=== PATIENT | female | born 1945 | race Caucasian/White ===

== ENCOUNTER 2020-10-31 15:19 | Inpatient (IN) ==
[2020-10-31 15:57] LABS: INR 1.1 (0.9-1.1); Partial Thromboplastin Ratio 0.8; Partial Thromboplastin Time 20.4 Seconds (21.0-31.0); Prothrombin Time 10.9 Seconds (9.0-12.0)
[2020-10-31 16:01] LABS: BUN Creatinine Ratio 19.9 (10-20); Blood Urea Nitrogen 25 mg/dl (7-18); Calcium 8.6 mg/dl (8.5-10.1); Carbon Dioxide 28 mmol/L (21-32); Chloride 107 mmol/L (98-107); Creatinine Clr Calc Pharmacy 48.2 ml/min; Est GFR (African American) 48.5 ml/min; Est GFR (Non-African American) 41.8 ml/min; Glucose 178 mg/dl (70-99); Lipase 214 U/L (73-393); Sodium 141 mmol/L (136-145)
[2020-10-31 16:06] LABS: NT Pro B Type Natriuretic Pept 627 pg/ml (0-900); Troponin I < 0.015 ng/ml (0-0.045)
[2020-10-31 16:08] LABS: Base Excess VBG 3.5 mEq/L; pH VBG 7.41 (7.36-7.41)
[2020-10-31 16:18] LABS: Hematocrit (blood only) 20.6 % (37-47); Hemoglobin 5.6 g/dL (12.0-16.0); Mean Corpuscular Hemoglobin 20.8 pg (25-34); Mean Corpuscular Hgb Conc 27.2 g/dL (32-36); Mean Corpuscular Volume 76.6 fL (80-100); Mean Platelet Volume 11.5 fL (7.4-10.4); Nucleated RBC # (auto) 0.05 K/uL (0-0); Nucleated RBC % (auto) 0.7 %; Platelet Count 186 K/uL (130-400); RDW Coefficient of Variation 18.7 % (11.5-14.5); RDW Standard Deviation 52.3 fL (36.4-46.3); Red Blood Count 2.69 M/uL (4.2-5.4); White Blood Count 6.46 K/uL (4.8-10.8)
[2020-10-31 16:19] LABS: Basophils # (auto) 0.02 K/uL (0-0.2); Basophils % (auto) 0.3 %; Eosinophils # (auto) 0.04 K/uL (0-0.5); Eosinophils % (auto) 0.6 %; Hypochromasia Present; Immature Granulocytes # (auto) 0.02 K/uL (0.00-0.02); Immature Granulocytes % (auto) 0.3 %; Lymphocytes # (auto) 1.23 K/uL (1.2-3.4); Monocytes # (auto) 0.52 K/uL (0.11-0.59); Neutrophils # (auto) 4.63 K/uL (1.4-6.5); Neutrophils % (auto) 71.8 %; Ovalocytes 1+; Schistocytes 1+
[2020-10-31] MEDS ORDERED: SODIUM CHLORIDE 0.9% 250 ML IV PRN ×2 (16:19→22:05)
[2020-10-31] MEDS ORDERED: PANTOPRAZOLE BOLUS/DRIP 1 EA IV STA (16:25)
[2020-10-31] MEDS ORDERED: PANTOprazole 80 MG in DEXTROSE 5% 100 ML IV ONE (16:25)
--- NOTE | 2020-10-31 16:30 | XRay Report ---
XR chest 1V portable HISTORY: 75 years-old Female Chest Pain . Acute atypical chest pain COMPARISON: None TECHNIQUE: Portable AP view of the chest FINDINGS: Cardiac silhouette is enlarged. Suggested pulmonary artery hypertension. Linear subsegmental left solomon g base atelectasis/scarring. No pneumothorax, pleural effusion, airspace consolidation or overt pulmo nary edema. Possible hiatal hernia. Bones appear grossly intact. IMPRESSION: Cardiomegaly without acute process. ACT 112: Negative or not required by law. The above report was generated using voice recognition software. It may contain grammatical, syntax o r spelling errors. Electronically signed by: Conor Nichols M.D. 10/31/2020 4:29 PM
[2020-10-31] MEDS: PANTOprazole 40 MG in DEXTROSE 5% 100 ML IV SCH ×2 (17:07→21:51)
--- NOTE | 2020-10-31 17:20 | History & Physical Report ---
Date of Service October 31, 2020 Assessment & Plan (1) Acute blood loss anemia: Cute blood loss anemia from a GI source encouraged by circulating anticoagulant of Eliquis. Holding Eliquis and aspirin. Transfuse 2 units packed red blood cells in the emergency department. Protonix drip was initiated will be continued. Consideration of consultation with gastroenterology will be based upon augmentation of her hemoglobin by transfusion. (2) Atrial fibrillation: Continue rate controlling agent of metoprolol with small sip of water (3) COPD (chronic obstructive pulmonary disease): Continue on pharmacy substituted for Trelegy inhaler (4) Depression: The patient is maintained on Paxil 20 Ativan 0.5 at bedtime (5) Hyperlipidemia: Patient continues on atorvastatin 40 (6) CKD (chronic kidney disease): Patient likely has some chronic kidney disease based upon her comorbid state however we do not have her baseline here. Likely may have some MEE however the patient be hydrated in addition to the blood being administered (7) DVT prophylaxis: MARHSALL prophylaxis is contraindicated we will proceed with SCDs. History of Present Illness Primary Care Provider: Hermelinda Penn MD Patient recently discharged from [facility] with diagnosis of A. fib restarted on Eliquis and metoprolol having come off of verapamil. Patient presents with blood loss anemia with a hemoglobin of 5.6 and melena with heme positive stool from below according to the emergency room physician. Her blood pressure stable in the ER she is slightly tachypneic but does have a history of COPD. Patient was only discharged on a baby aspirin on Eliquis which seemed to be appropriate dosing. Patient is consented for to inspect her blood cells in the emergency department she is on diuretics however echocardiogram from September 22 shows an EF to be 70 subsequently the diuretics may be for cor pulmonale or peripheral edema from her COPD. Allergies Allergy/AdvReac Type Severity Reaction Status Date / Time No Known Allergies Allergy Verified 10/31/20 15:51 Home Medications Medication Instructions Recorded Confirmed Type ascorbic acid (vitamin C) [Vitamin 500 mg PO QAM 03/02/18 10/31/20 History C] atorvastatin 40 mg PO QAM 03/02/18 10/31/20 History lorazepam [Ativan] 0.5 mg PO HS 03/02/18 10/31/20 History omega 9-jte-qlv-fish oil [Fish Oil] 1 tab PO QAM 03/02/18 10/31/20 History paroxetine HCl 20 mg PO QAM 03/02/18 10/31/20 History potassium chloride [Klor-Con M20] 20 meq PO QAM 03/02/18 10/31/20 History vitamin E 400 unit PO QAM 03/02/18 10/31/20 History cholecalciferol (vitamin D3) 1,000 unit PO QAM 11/26/18 10/31/20 History [Vitamin D3] apixaban [Eliquis] 5 mg PO BID 10/31/20 10/31/20 History aspirin 81 mg PO QAM 10/31/20 10/31/20 History nbojfnemjil-eavrcvekr-hbfnrjes 1 inh INHALATION BID 10/31/20 10/31/20 History [Trelegy Ellipta] furosemide 40 mg PO QAM 10/31/20 10/31/20 History metoprolol tartrate 25 mg PO BID 10/31/20 10/31/20 History spironolactone 25 mg PO QAM 10/31/20 10/31/20 History Past Med/Surg History Medical History (Updated 10/31/20 @ 17:25 by Piotr Glover MD) Anxiety Bulging disc 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 Chronic obstructive pulmonary disease COPD (chronic obstructive pulmonary disease) Depression Edema of both legs x 3 weeks - pcp aware - recently started on lasix GERD (gastroesophageal reflux disease) Hearing deficit Hyperlipidemia Hypertension Osteoarthritis Surgical History History of cholecystectomy History of colonoscopy History of surgery Rt eye keratectomy History of tonsillectomy and adenoidectomy History of tooth extraction ALL ON TOP, MOST ON BOTTOM History of total abdominal hysterectomy and bilateral salpingo-oophorectomy Social History Smoking Status: Former smoker Tobacco Type: Cigarettes Cigarettes Per Day: 1-2 A DAY FOR 50 YRS; Second Hand Exposure: Yes (1ST SMOKED); Hx Alcohol Use: No Hx Substance Use: No Preferred Language: Ukrainian 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: 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 Beliefs That Will Affect Care: Jehovah'S Witness Jehovah'S Witness Beliefs: [employer] Current Living Situation: Spouse Feels Safe at Home: Yes Assistive Devices: Denture - Upper, Glasses and Hearing Aid - Bilateral Review of Systems Review of Systems: Mild distress and fatigue no headache, blurry or double vision no speech or swallowing issues no chest pain, pressure or palpitations no shortness of breath, cough or wheezes no abdominal pain, nausea or vomiting, diarrhea or constipation no dysuria, hematuria or frequency no focal joint pain or swelling no back pain, CVA tenderness or radicular pain no bruising, bleeding or rashes no focal signs of weakness or numbness or altered sensation no complaints of anxiety or depression.. Physical Exam Physical Exam: The patient appeared well nourished and normally developed. Vital signs as documented. Head exam is normocephalic atraumatic Neck is without JVD, thyromegaly, or carotid bruits. Lungs are clear to auscultation, no focal loss of breath sounds Cardiac exam, Rhythm is regular.. No murmurs, rubs or gallops. Abdominal exam reveals normal bowel sounds, soft non tender, no masses Extremities are nonedematous and both pedal pulses are present Neurologic exam is alert and oriented, no focal loss of strength or sensation Skin is without bruises or rashes Psychologically is without concerns for anxiety or depression Results & Data Results & Data ([facility]) Vital Signs (Past 12 Hours) Vital Signs Temp Pulse Resp BP Pulse Ox 10/31/20 17:01 67 26 H 132/64 92 10/31/20 17:00 72 22 90 10/31/20 16:36 66 24 172/97 H 96 10/31/20 16:35 69 22 96 10/31/20 16:01 67 29 H 94 10/31/20 16:00 72 17 124/70 94 10/31/20 15:52 66 25 H 130/58 L 92 10/31/20 15:44 95 10/31/20 15:40 95 10/31/20 15:33 98.2 F 90 20 95 10/31/20 15:30 73 19 95 10/31/20 15:23 71 24 148/64 H 94 Chest X-Ray 10/31/20 15:38 XR chest 1V portable HISTORY: 75 years-old Female Chest Pain . Acute atypical chest pain COMPARISON: None TECHNIQUE: Portable AP view of the chest FINDINGS: Cardiac silhouette is enlarged. Suggested pulmonary artery hypertension. Linear subsegmental left lung base atelectasis/scarring. No pneumothorax, pleural effusion, airspace consolidation or overt pulmonary edema. Possible hiatal hernia. Bones appear grossly intact. IMPRESSION: Cardiomegaly without acute process. Electronically signed by: Conor Nichols M.D. 10/31/2020 4:29 PM PG Care Time/CCT Total # of Minutes Spent Total Time Spent with Patient: Total time spent is greater than 50% in coordination of care (as documented) at patient's floor/unit and/or counseling patient: Coding Level of Care Code 56248 Initial Inpt Care Lvl 3 Diagnoses Acute blood loss anemia D62 Atrial fibrillation I48.91 COPD (chronic obstructive pulmonary disease) J44.9 Depression F32.9 Hyperlipidemia E78.5 CKD (chronic kidney disease) N18.9 DVT prophylaxis Z29.9
--- NOTE | 2020-10-31 19:47 | Emergency Department Note ---
History of Present Illness General Chief complaint: Shortness of Breath/Dyspnea Time Seen by Provider: 10/31/20 15:24 History of Present Illness Provider complaint: Shortness of breath palpitations Onset (ago): day(s) 2 Maximum Pain Intensity: 5 Associated symptoms: + shortness of breath; no chest pain, no cough, no fever/chills, no headaches and no nausea/vomiting 75-year-old female presents emergency department with palpitations shortness of breath and fatigue. Patient states she thinks she is in A. fib. She reports her symptoms began since yesterday. Patient denies any chest pain. Patient is on Eliquis for atrial fibrillation. Patient is not vaccinated against COVID-19. No recent travel. Home Medications Medication Instructions Recorded Confirmed Type ascorbic acid (vitamin C) [Vitamin 500 mg PO QAM 03/02/18 10/31/20 History C] atorvastatin 40 mg PO QAM 03/02/18 10/31/20 History lorazepam [Ativan] 0.5 mg PO HS 03/02/18 10/31/20 History omega 8-szz-wax-fish oil [Fish Oil] 1 tab PO QAM 03/02/18 10/31/20 History paroxetine HCl 20 mg PO QAM 03/02/18 10/31/20 History potassium chloride [Klor-Con M20] 20 meq PO QAM 03/02/18 10/31/20 History vitamin E 400 unit PO QAM 03/02/18 10/31/20 History cholecalciferol (vitamin D3) 1,000 unit PO QAM 11/26/18 10/31/20 History [Vitamin D3] apixaban [Eliquis] 5 mg PO BID 10/31/20 10/31/20 History aspirin 81 mg PO QAM 10/31/20 10/31/20 History miwhwvhzqch-qwtqjrclj-nyftfabq 1 inh INHALATION BID 10/31/20 10/31/20 History [Trelegy Ellipta] furosemide 40 mg PO QAM 10/31/20 10/31/20 History metoprolol tartrate 25 mg PO BID 10/31/20 10/31/20 History spironolactone 25 mg PO QAM 10/31/20 10/31/20 History Allergies Allergy/AdvReac Type Severity Reaction Status Date / Time No Known Allergies Allergy Verified 10/31/20 15:51 Past Med/Surg History Medical History Anxiety Bulging disc 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 Chronic obstructive pulmonary disease COPD (chronic obstructive pulmonary disease) Depression Edema of both legs x 3 weeks - pcp aware - recently started on lasix GERD (gastroesophageal reflux disease) Hearing deficit Hyperlipidemia Hypertension Osteoarthritis Surgical History History of cholecystectomy History of colonoscopy History of surgery Rt eye keratectomy History of tonsillectomy and adenoidectomy History of tooth extraction ALL ON TOP, MOST ON BOTTOM History of total abdominal hysterectomy and bilateral salpingo-oophorectomy Social History Smoking Status: Former smoker Tobacco Type: Cigarettes Cigarettes Per Day: 1-2 A DAY FOR 50 YRS; Second Hand Exposure: Yes (1ST SMOKED); Hx Alcohol Use: No Hx Substance Use: No Preferred Language: Macedonian 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: Effective Escrow Agent Required: No Beliefs That Will Affect Care: Advent Advent Beliefs: [place] GNOSTICISM Current Living Situation: Spouse Feels Safe at Home: Yes Assistive Devices: Denture - Upper, Glasses and Hearing Aid - Bilateral Review of Systems A total of 10 systems reviewed and were otherwise negative Physical Exam Vital Signs Vital Signs - 24 hr 10/31/20 15:23 10/31/20 15:28 10/31/20 15:30 Temperature Temperature Source Pulse Rate 71 73 Pulse Rate from SpO2 Sensor 72 72 Pulse Rhythm Pulse Strength Respiratory Rate 24 19 Respiratory Depth Respiratory Pattern Regular Blood Pressure 148/64 H Blood Pressure Mean 92 Blood Pressure Position Pulse Oximetry 94 95 Oxygen Delivery Method Sepsis Recent Fever Within 48 Hours Sepsis New/Unexplained Change in Mental Status Sepsis Action Taken by Nursing 10/31/20 15:33 10/31/20 15:40 10/31/20 15:44 Temperature 36.8 C Temperature Source Oral Pulse Rate 90 Pulse Rate from SpO2 Sensor Pulse Rhythm Regular Pulse Strength Normal Respiratory Rate 20 Respiratory Depth Normal Respiratory Pattern Regular Blood Pressure Blood Pressure Mean Blood Pressure Position Sitting Pulse Oximetry 95 95 95 Oxygen Delivery Method Room Air Room Air Room Air Sepsis Recent Fever Within 48 Hours No Sepsis New/Unexplained Change in Mental Status N/A Sepsis Action Taken by Nursing No Action Required 10/31/20 15:52 10/31/20 16:00 10/31/20 16:01 Temperature Temperature Source Pulse Rate 66 72 67 Pulse Rate from SpO2 Sensor 66 72 67 Pulse Rhythm Pulse Strength Respiratory Rate 25 H 17 29 H Respiratory Depth Respiratory Pattern Blood Pressure 130/58 L 124/70 Blood Pressure Mean 82 88 Blood Pressure Position Pulse Oximetry 92 94 94 Oxygen Delivery Method Sepsis Recent Fever Within 48 Hours Sepsis New/Unexplained Change in Mental Status Sepsis Action Taken by Nursing 10/31/20 16:35 10/31/20 16:36 10/31/20 17:00 Temperature Temperature Source Pulse Rate 69 66 72 Pulse Rate from SpO2 Sensor 69 67 73 Pulse Rhythm Pulse Strength Respiratory Rate 22 24 22 Respiratory Depth Respiratory Pattern Blood Pressure 172/97 H Blood Pressure Mean 122 Blood Pressure Position Pulse Oximetry 96 96 90 Oxygen Delivery Method Sepsis Recent Fever Within 48 Hours Sepsis New/Unexplained Change in Mental Status Sepsis Action Taken by Nursing 10/31/20 17:01 10/31/20 17:02 Temperature Temperature Source Pulse Rate 67 63 Pulse Rate from SpO2 Sensor 67 64 Pulse Rhythm Pulse Strength Respiratory Rate 26 H 24 Respiratory Depth Respiratory Pattern Blood Pressure 132/64 Blood Pressure Mean 86 Blood Pressure Position Pulse Oximetry 92 93 Oxygen Delivery Method Sepsis Recent Fever Within 48 Hours Sepsis New/Unexplained Change in Mental Status Sepsis Action Taken by Nursing Physical Exam GENERAL: She is oriented to person, place, and time. She appears well-developed and well-nourished. She does not appear distressed. HENT: Exam performed. -Head: Normocephalic and atraumatic. -Right Ear: External ear normal. No mastoid tenderness. -Left Ear: External ear normal. No mastoid tenderness. -Mouth/Throat: The oropharynx is clear and moist. No trismus in the jaw. No dental abscesses or uvula swelling. No oropharyngeal exudate or tonsillar abscesses. EYES: Conjunctivae and EOM are normal. Pupils are equal, round, and reactive to light. Right eye exhibits no discharge. Left eye exhibits no discharge. No scleral icterus. NECK: Normal range of motion. Neck supple. No JVD present. No spinous process tenderness present. No carotid bruit present. No rigidity. No tracheal deviation and normal range of motion present. No Brudzinski's sign and no Kernig's sign noted. CV: Normal rate, regular rhythm, normal heart sounds and intact distal pulses. There is no peripheral edema. Palpable radial pulses bue. PULM/CHEST: Effort normal and breath sounds normal. No respiratory distress. No stridor. She has no wheezes. She has no rales. -Chest Wall: She exhibits no tenderness. ABD: The abdomen is soft. Bowel sounds are normal. She has no distension. No mass is present. There is no tenderness. There is no rebound, no guarding, no Bryant's sign and no tenderness at McBurney's point. Rovsig negative MUSC/SKEL: Normal range of motion. There is no peripheral edema, tenderness or deformity. LYMPH: No cervical adenopathy. NEURO: She is alert and oriented to person, place, and time. She has normal strength. No cranial nerve deficit or sensory deficit. Coordination and gait normal. GCS eye subscore is 4. GCS verbal subscore is 5. GCS motor subscore is 6. Cerebellar tests wnl. SKIN: Pale Course Course 1524: The patient was evaluated in room B11. A complete history and physical exam was performed Cardiac monitoring: An order was placed for continuous cardiac monitoring. The monitor shows a rate of 80 with sinus rhythm 1630: Vital signs stable. Labs show a hemoglobin of 5.6. Rectal exam was performed with female nursing gift consultant at bedside and the patient was Hemoccult positive with black tarry stools. Patient was started on Protonix drip and will be transfused 2 units packed red blood cells. Patient will be admitted to the [facility] team Dr. Canales notified. Administered Medications Pantoprazole Sodium 40 mg/ (Dextrose) 100 mls @ 20 mls/hr IV Q5H [facility] Stop: 11/30/20 16:42 Last Admin: 10/31/20 17:07 Dose: 8 mg/hr, 20 mls/hr Documented by: [id number] Discontinued Medications Pantoprazole Sodium (Protonix Bolus/Drip) 0 mls @ 1 mls/hr IV ONE STA Stop: 10/31/20 16:26 Last Admin: 10/31/20 18:57 Dose: Not Given Documented by: [id number] Pantoprazole Sodium 80 mg/ (Dextrose) 120 mls @ 400 mls/hr IV NOW ONE Stop: 10/31/20 16:42 Last Infusion: 10/31/20 17:11 Dose: 0 mls/hr Documented by: [id number] Admin: 10/31/20 16:56 Dose: 400 mls/hr Documented by: [id number] Critical Care Time Critical Care Time: Yes Total Critical Care Time: 66 I have personally spent greater than 66 minutes of critical care time in the direct management of this patient. This includes bedside care, interpretation of diagnostic studies, and testing, discussion with consultants, patient, and family members, and other required patient management activities. This 66 minutes is in excess of all separately billable procedures. Medical Decision Making Laboratory Data Result diagrams: 10/31/20 15:30 10/31/20 15:30 Lab Results 10/31/20 10/31/20 10/31/20 Range/Units 15:30 15:30 15:30 WBC 6.46 (4.8-10.8) K/uL RBC 2.69 L (4.2-5.4) M/uL Hgb 5.6 L* (12.0-16.0) g/dL Hct 20.6 L* (37-47) % MCV 76.6 L (80-100) fL MCH 20.8 L (25-34) pg MCHC 27.2 L (32-36) g/dL RDW Std Deviation 52.3 H (36.4-46.3) fL RDW Coeff of Giana 18.7 H (11.5-14.5) % Plt Count 186 (130-400) K/uL MPV 11.5 H (7.4-10.4) fL Immature Gran % (Auto) 0.3 % Neut % (Auto) 71.8 % Lymph % (Auto) 19.0 % [place] % (Auto) 8.0 % Eos % (Auto) 0.6 % Baso % (Auto) 0.3 % Neut # (Auto) 4.63 (1.4-6.5) K/uL Lymph # (Auto) 1.23 (1.2-3.4) K/uL [place] # (Auto) 0.52 (0.11-0.59) K/uL Eos # (Auto) 0.04 (0-0.5) K/uL Baso # (Auto) 0.02 (0-0.2) K/uL Immature Gran # (Auto) 0.02 (0.00-0.02) K/uL Absolute Nucleated RBC 0.05 H (0-0) K/uL Nucleated RBC % (auto) 0.7 % Hypochromasia Present Ovalocytes 1+ Schistocytes 1+ PT 10.9 (9.0-12.0) Seconds INR 1.1 (0.9-1.1) APTT 20.4 L (21.0-31.0) Seconds PTT Ratio 0.8 VBG pH (7.36-7.41) VBG pCO2 (38-50) mmHg VBG pO2 mmHg VBG HCO3 mmol/L VBG O2 Saturation % VBG Base Excess mEq/L Barometric Pressure mm/Hg Sodium 141 (136-145) mmol/L Potassium 4.0 (3.5-5.1) mmol/L Chloride 107 (98-107) mmol/L Carbon Dioxide 28 (21-32) mmol/L Anion Gap 6.0 (3-11) BUN 25 H (7-18) mg/dl Creatinine 1.27 H (0.6-1.2) mg/dl Est Cr Clr Drug Dosing 48.2 ml/min Est GFR ( Amer) 48.5 ml/min Est GFR (Non-Af Amer) 41.8 ml/min BUN/Creatinine Ratio 19.9 (10-20) Glucose 178 H (70-99) mg/dl Calcium 8.6 (8.5-10.1) mg/dl Troponin I < 0.015 (0-0.045) ng/ml NT-Pro-B Natriuret Pep 627 (0-900) pg/ml Lipase 214 (73-393) U/L COVID-19 Eval Order SARS-CoV-2 (PCR) (Negative) Blood Type Blood Type Recheck Antibody Screen Crossmatch 10/31/20 10/31/20 10/31/20 Range/Units 15:50 15:50 15:58 WBC (4.8-10.8) K/uL RBC (4.2-5.4) M/uL Hgb (12.0-16.0) g/dL Hct (37-47) % MCV (80-100) fL MCH (25-34) pg MCHC (32-36) g/dL RDW Std Deviation (36.4-46.3) fL RDW Coeff of Giana (11.5-14.5) % Plt Count (130-400) K/uL MPV (7.4-10.4) fL Immature Gran % (Auto) % Neut % (Auto) % Lymph % (Auto) % [place] % (Auto) % Eos % (Auto) % Baso % (Auto) % Neut # (Auto) (1.4-6.5) K/uL Lymph # (Auto) (1.2-3.4) K/uL [place] # (Auto) (0.11-0.59) K/uL Eos # (Auto) (0-0.5) K/uL Baso # (Auto) (0-0.2) K/uL Immature Gran # (Auto) (0.00-0.02) K/uL Absolute Nucleated RBC (0-0) K/uL Nucleated RBC % (auto) % Hypochromasia Ovalocytes Schistocytes PT (9.0-12.0) Seconds INR (0.9-1.1) APTT (21.0-31.0) Seconds PTT Ratio VBG pH 7.41 (7.36-7.41) VBG pCO2 47 (38-50) mmHg VBG pO2 40 mmHg VBG HCO3 29 mmol/L VBG O2 Saturation 75.0 % VBG Base Excess 3.5 mEq/L Barometric Pressure 737.1 mm/Hg Sodium (136-145) mmol/L Potassium (3.5-5.1) mmol/L Chloride (98-107) mmol/L Carbon Dioxide (21-32) mmol/L Anion Gap (3-11) BUN (7-18) mg/dl Creatinine (0.6-1.2) mg/dl Est Cr Clr Drug Dosing ml/min Est GFR ( Amer) ml/min Est GFR (Non-Af Amer) ml/min BUN/Creatinine Ratio (10-20) Glucose (70-99) mg/dl Calcium (8.5-10.1) mg/dl Troponin I (0-0.045) ng/ml NT-Pro-B Natriuret Pep (0-900) pg/ml Lipase (73-393) U/L COVID-19 Eval Order Covid19 at [facility] SARS-CoV-2 (PCR) NEGATIVE (Negative) Blood Type Blood Type Recheck Antibody Screen Crossmatch 10/31/20 10/31/20 Range/Units 16:47 17:01 WBC (4.8-10.8) K/uL RBC (4.2-5.4) M/uL Hgb (12.0-16.0) g/dL Hct (37-47) % MCV (80-100) fL MCH (25-34) pg MCHC (32-36) g/dL RDW Std Deviation (36.4-46.3) fL RDW Coeff of Giana (11.5-14.5) % Plt Count (130-400) K/uL MPV (7.4-10.4) fL Immature Gran % (Auto) % Neut % (Auto) % Lymph % (Auto) % [place] % (Auto) % Eos % (Auto) % Baso % (Auto) % Neut # (Auto) (1.4-6.5) K/uL Lymph # (Auto) (1.2-3.4) K/uL [place] # (Auto) (0.11-0.59) K/uL Eos # (Auto) (0-0.5) K/uL Baso # (Auto) (0-0.2) K/uL Immature Gran # (Auto) (0.00-0.02) K/uL Absolute Nucleated RBC (0-0) K/uL Nucleated RBC % (auto) % Hypochromasia Ovalocytes Schistocytes PT (9.0-12.0) Seconds INR (0.9-1.1) APTT (21.0-31.0) Seconds PTT Ratio VBG pH (7.36-7.41) VBG pCO2 (38-50) mmHg VBG pO2 mmHg VBG HCO3 mmol/L VBG O2 Saturation % VBG Base Excess mEq/L Barometric Pressure mm/Hg Sodium (136-145) mmol/L Potassium (3.5-5.1) mmol/L Chloride (98-107) mmol/L Carbon Dioxide (21-32) mmol/L Anion Gap (3-11) BUN (7-18) mg/dl Creatinine (0.6-1.2) mg/dl Est Cr Clr Drug Dosing ml/min Est GFR ( Amer) ml/min Est GFR (Non-Af Amer) ml/min BUN/Creatinine Ratio (10-20) Glucose (70-99) mg/dl Calcium (8.5-10.1) mg/dl Troponin I (0-0.045) ng/ml NT-Pro-B Natriuret Pep (0-900) pg/ml Lipase (73-393) U/L COVID-19 Eval Order SARS-CoV-2 (PCR) (Negative) Blood Type O Positive Blood Type Recheck O Positive Antibody Screen NEGATIVE Crossmatch See Detail Imaging Data Radiologist's Impression: Chest X-Ray 10/31/20 15:38 XR chest 1V portable HISTORY: 75 years-old Female Chest Pain . Acute atypical chest pain COMPARISON: None TECHNIQUE: Portable AP view of the chest FINDINGS: Cardiac silhouette is enlarged. Suggested pulmonary artery hypertension. Linear subsegmental left lung base atelectasis/scarring. No pneumothorax, pleural effusion, airspace consolidation or overt pulmonary edema. Possible hiatal hernia. Bones appear grossly intact. IMPRESSION: Cardiomegaly without acute process. ACT 112: Negative or not required by law. The above report was generated using voice recognition software. It may contain grammatical, syntax or spelling errors. Electronically signed by: Conor Nichols M.D. 10/31/2020 4:29 PM ECG Data Indication: + SOB/dyspnea Rate (beats per minute): 80 Rhythm: + normal sinus ECG Intervals/blocks: + First degree AV block, + Normal QRS and + Normal QT-c ECG ST segments: + Normal ST segments MDM Narrative 1524: The patient was evaluated in room B11. A complete history and physical exam was performed Cardiac monitoring: An order was placed for continuous cardiac monitoring. The monitor shows a rate of 80 with sinus rhythm 1630: Vital signs stable. Labs show a hemoglobin of 5.6. Rectal exam was performed with female nursing gift consultant at bedside and the patient was Hemoccult positive with black tarry stools. Patient was started on Protonix drip and will be transfused 2 units packed red blood cells. Patient will be admitted to the [facility] team Dr. Canales notified. Impression & Plan GIB (gastrointestinal bleeding) Discharge Plan Visit Data Chief Complaint: Shortness of Breath/Dyspnea ED Provider: Basilio Sanders Discharge Problem: GIB (gastrointestinal bleeding) Patient Disposition: Admitted As Inpatient Discharge Instructions Interventions: ED Discharge Assessment Last Done: 10/31/20 19:04 Discharge Problem: GIB (gastrointestinal bleeding) Qualifiers: GI bleed type/associated pathology: melena Qualified Code(s): K92.1 - [place]
[2020-10-31] MEDS ORDERED: ONDANSETRON INJ 2 MG/ML 2 ML VIAL IV PRN (20:08)
[2020-10-31] MEDS ORDERED: METOPROLOL TARTRATE 1 MG/ML VIAL IV PRN (20:08)
[2020-10-31] MEDS ORDERED: PROMETHAZINE HCL 12.5 MG in SODIUM CHLORIDE 0.9% 50 ML IV PRN (20:08)
[2020-10-31] MEDS ORDERED: ACETAMINOPHEN 325 MG TAB PO PRN (20:08)
[2020-10-31 20:11] LABS: Albumin Level 3.5 gm/dl (3.4-5.0); Bilirubin Direct 0.3 mg/dl (0-0.2); Bilirubin,Total 0.4 mg/dl (0.2-1)
[2020-10-31] MEDS: METOPROLOL TARTRATE 25 MG TAB PO SCH (21:47)
[2020-10-31] MEDS: LORazepam 0.5 MG TAB PO SCH (21:49)
[2020-10-31] MEDS: SODIUM CHLORIDE 0.9% 1000ML 1,000 ML IV SCH (21:50)
[2020-11-01] MEDS: PANTOprazole 40 MG in DEXTROSE 5% 100 ML IV SCH ×5 (02:50→23:31)
--- NOTE | 2020-11-01 06:29 | Electrocardiogram Report ---
Test Reason : Blood Pressure : / mmHG Vent. Rate : 080 BPM Atrial Rate : 080 BPM P-R Int : 220 ms QRS Dur : 114 ms QT Int : 394 ms P-R-T Axes : 016 078 012 degrees QTc Int : 454 ms Sinus rhythm with 1st degree A-V block Nonspecific ST abnormality Abnormal ECG No previous ECGs available Confirmed by Alfredo Razo ([id number]) on 11/01/2020 6:29:18 AM Referred By: Confirmed By:Alfredo Razo
[2020-11-01 06:38] LABS: Mean Corpuscular Hgb Conc 29.7 g/dL (32-36); Nucleated RBC # (auto) 0.05 K/uL (0-0)
[2020-11-01 06:51] LABS: Hematocrit (blood only) 23.9 % (37-47); Hemoglobin 7.1 g/dL (12.0-16.0); Mean Corpuscular Hemoglobin 23.2 pg (25-34); Mean Corpuscular Volume 78.1 fL (80-100); RDW Coefficient of Variation 18.7 % (11.5-14.5); RDW Standard Deviation 53.3 fL (36.4-46.3); Red Blood Count 3.06 M/uL (4.2-5.4); White Blood Count 4.98 K/uL (4.8-10.8)
[2020-11-01 06:52] LABS: INR 1.1 (0.9-1.1); Prothrombin Time 10.9 Seconds (9.0-12.0)
[2020-11-01 07:04] LABS: Calcium 8.6 mg/dl (8.5-10.1); Creatinine Clr Calc Pharmacy 48.6 ml/min; Est GFR (African American) 48.5 ml/min; Est GFR (Non-African American) 41.8 ml/min; Potassium 4.1 mmol/L (3.5-5.1)
[2020-11-01 07:44] LABS: Mean Platelet Volume 10.2 fL (7.4-10.4); Platelet Count 121 K/uL (130-400); Platelet Estimate Normal (Normal)
[2020-11-01] MEDS: SODIUM CHLORIDE 0.9% 1000ML 1,000 ML IV SCH (08:11)
[2020-11-01] MEDS ORDERED: SODIUM CHLORIDE 0.9% 250 ML IV PRN (08:19)
--- NOTE | 2020-11-01 08:23 | Hospitalist Progress Note ---
Date of Service November 01, 2020 Assessment & Plan (1) Acute blood loss anemia: acute blood loss anemia from a GI source encouraged by circulating anticoagulant of Eliquis. Holding Eliquis and aspirin. Transfuse 3 units packed red blood cells Protonix drip transitioned to bolus bid consultation with gastroenterology will have egd and colonoscopy 11/02/20 (2) Atrial fibrillation: Continue rate controlling agent of metoprolol with small sip of water (3) COPD (chronic obstructive pulmonary disease): Continue on pharmacy substituted for Trelegy inhaler (4) Depression: The patient is maintained on Paxil 20 Ativan 0.5 at bedtime (5) Hyperlipidemia: Patient continues on atorvastatin 40 (6) CKD (chronic kidney disease): ckd3 stop ivf at this time (7) DVT prophylaxis: VTE prophylaxis is contraindicated we will proceed with SCDs. Admission and Anticipated Discharge Date Admission Date: October 31, 2020 Subjective pt state she feels much better than yesterday did have augmentation of hgb with transfusion, will have another unit of blood today Review of Systems Review of Systems: Mild distress and fatigue no headache, blurry or double vision no speech or swallowing issues no chest pain, pressure or palpitations no shortness of breath, cough or wheezes no abdominal pain, nausea or vomiting, diarrhea or constipation no dysuria, hematuria or frequency no focal joint pain or swelling no back pain, CVA tenderness or radicular pain no bruising, bleeding or rashes no focal signs of weakness or numbness or altered sensation no complaints of anxiety or depression.. Physical Exam Physical Exam: The patient appeared well nourished and normally developed. Vital signs as documented. Head exam is normocephalic atraumatic Neck is without JVD, thyromegaly, or carotid bruits. Lungs are clear to auscultation, no focal loss of breath sounds Cardiac exam, Rhythm is regular.. No murmurs, rubs or gallops. Abdominal exam reveals normal bowel sounds, soft non tender, no masses Extremities are nonedematous and both pedal pulses are present Neurologic exam is alert and oriented, no focal loss of strength or sensation Skin is without bruises or rashes Psychologically is without concerns for anxiety or depression Results & Data Results & Data ([facility]) Vital Signs (Past 12 Hours) Vital Signs Temp Pulse Pulse Resp BP BP Pulse Ox 11/01/20 08:13 62 18 134/64 11/01/20 03:47 97.9 F 58 L 19 145/68 H 91 11/01/20 01:03 99.0 F 57 L 21 145/62 H 11/01/20 00:56 65 18 94 11/01/20 00:08 99.1 F 60 19 149/78 H 11/01/20 00:00 68 10/31/20 23:38 98.5 F 63 22 140/76 93 10/31/20 23:23 98.5 F 64 21 127/56 L 93 10/31/20 22:56 98.2 F 63 23 127/56 L 92 PG Care Time/CCT Total # of Minutes Spent Total Time Spent with Patient: Total time spent is greater than 50% in coordination of care (as documented) at patient's floor/unit and/or counseling patient: Coding Level of Care Code 13041 Subseq Hosp Care Lvl 3 Diagnoses Acute blood loss anemia D62 Atrial fibrillation I48.91 COPD (chronic obstructive pulmonary disease) J44.9 Depression F32.9 Hyperlipidemia E78.5 CKD (chronic kidney disease) N18.9 DVT prophylaxis Z29.9
[2020-11-01] MEDS: ATORVASTATIN 40 MG TAB PO SCH (09:53)
[2020-11-01] MEDS: METOPROLOL TARTRATE 25 MG TAB PO SCH ×2 (09:53→20:54)
[2020-11-01] MEDS: FUROSEMIDE 40 MG TAB PO SCH (09:53)
[2020-11-01] MEDS: FLUTICASONE FUROATE 100MCG 14 PUFFS/INHALER INH SCH (09:53)
[2020-11-01] MEDS: UMECLIDINIUM/VILANTEROL 62.5/25MCG 7 PUFFS/INHALER INH SCH (09:54)
[2020-11-01] MEDS: PARoxetine HCL 20 MG TAB PO SCH (09:54)
--- NOTE | 2020-11-01 11:30 | Gastrointestinal Consultation ---
Date of Consultation November 01, 2020 Assessment & Plan (1) GIB (gastrointestinal bleeding): (2) Symptomatic anemia: possible avm vs. PUD or diverticular bleed Recs: clear liquid diet today prep with golytely at 6 pm NPO post midnight except for prep EGD and colonoscopy tomorrow to further evaluate trend H/H, tranfuse prn insert two large bore IVs (14-16 gauge) protonix 40 mg BID Thank you for allowing me to participate in the care of this patient History of Present Illness Attending Physician: Piotr Glover MD 75 yo female with hx afib on eliquis here for symptomatic anemia. Found to have hgb 5.6 and FOBT positive. She notes significant fatigue. Last colonoscopy 1 year ago for screening unremarkable. She was transfused here with hgb now up to 7.1. Denies any dyspnea, syncope, dizziness. labs reviewed, vss. Allergies Allergy/AdvReac Type Severity Reaction Status Date / Time No Known Allergies Allergy Verified 10/31/20 15:51 Home Medications Medication Instructions Recorded Confirmed Type ascorbic acid (vitamin C) [Vitamin 500 mg PO QAM 03/02/18 10/31/20 History C] atorvastatin 40 mg PO QAM 03/02/18 10/31/20 History lorazepam [Ativan] 0.5 mg PO HS 03/02/18 10/31/20 History omega 0-mer-edl-fish oil [Fish Oil] 1 tab PO QAM 03/02/18 10/31/20 History paroxetine HCl 20 mg PO QAM 03/02/18 10/31/20 History potassium chloride [Klor-Con M20] 20 meq PO QAM 03/02/18 10/31/20 History vitamin E 400 unit PO QAM 03/02/18 10/31/20 History cholecalciferol (vitamin D3) 1,000 unit PO QAM 11/26/18 10/31/20 History [Vitamin D3] apixaban [Eliquis] 5 mg PO BID 10/31/20 10/31/20 History aspirin 81 mg PO QAM 10/31/20 10/31/20 History ikswvmvhirv-nwnsbnhlm-adwdaicj 1 inh INHALATION BID 10/31/20 10/31/20 History [Trelegy Ellipta] furosemide 40 mg PO QAM 10/31/20 10/31/20 History metoprolol tartrate 25 mg PO BID 10/31/20 10/31/20 History spironolactone 25 mg PO QAM 10/31/20 10/31/20 History Patient History Medical History Anxiety Bulging disc Cardiac 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 obstructive pulmonary disease COPD (chronic obstructive pulmonary disease) Depression Edema of both legs x 3 weeks - pcp aware - recently started on lasix GERD (gastroesophageal reflux disease) Hearing deficit Hyperlipidemia Hypertension Osteoarthritis Surgical History History of cholecystectomy History of colonoscopy History of surgery Rt eye keratectomy History of tonsillectomy and adenoidectomy History of tooth extraction ALL ON TOP, MOST ON BOTTOM History of total abdominal hysterectomy and bilateral salpingo-oophorectomy Social History Smoking Status: Former smoker Tobacco Type: Cigarettes Cigarettes Per Day: 1-2 A DAY FOR 50 YRS; Second Hand Exposure: Yes (1ST SMOKED); Hx Alcohol Use: Yes Alcohol type: wine Hx Substance Use: No Preferred Language: French 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: Effective 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 Beliefs That Will Affect Care: Catholic Catholic Beliefs: [employer] Current Living Situation: Spouse Current Living Situation Comment: home Feels Safe at Home: Yes Safety Concerns: Feels Safe At This Time Assistive Devices: Denture - Upper, Glasses and Hearing Aid - Bilateral Review of Systems Constitutional: no fever, no chills and no weight loss Eyes: as per Subjective / HPI Ear, Nose, Mouth, Throat: as per Subjective / HPI Respiratory: no dyspnea and no dyspnea on exertion Cardiovascular: no chest pain and no palpitations Gastrointestinal: as per Subjective / HPI Musculoskeletal: no joint pain and no swelling Integumentary: no rash and no lesions Neurologic: no numbness and no paresthesia Psychiatric: no depression and no anxiety Endocrine: no fatigue Hematologic / Lymphatic: no easy bleeding and no easy bruising Physical Exam Constitutional: WD/WN, vitals as above Eyes: EOM intact bilaterally Neck: normal visual inspection Respiratory: normal respiratory effort, lungs clear to auscultation Cardiovascular: RRR, no murmur, no edema Gastrointestinal (Abdomen): Inspection/Auscultation: abdomen normal to inspection; abdomen not distended Percussion/Palpation: abdomen soft; abdomen nontender and no hepatosplenomegaly Musculoskeletal: Extremities: no cyanosis Gait: normal gait Skin: no rashes, warm and dry Neurologic: moves all extremities Psychiatric: A+Ox3, euthymic affect Results & Data ([facility]) Vital Signs (Past 12 Hours) Vital Signs Temp Pulse Pulse Resp BP BP Pulse Ox 11/01/20 10:35 36.8 C 65 20 136/78 91 11/01/20 10:05 36.8 C 62 18 149/53 H 92 11/01/20 09:50 36.9 C 64 20 134/67 91 11/01/20 09:35 36.9 C 66 20 144/68 H 91 11/01/20 08:13 62 18 134/64 11/01/20 03:47 36.6 C 58 L 19 145/68 H 91 11/01/20 01:03 37.2 C 57 L 21 145/62 H 11/01/20 00:56 65 18 94 11/01/20 00:08 37.3 C 60 19 149/78 H 11/01/20 00:00 68 10/31/20 23:38 36.9 C 63 22 140/76 93 PG Care Time/CCT Total # of Minutes Spent Total Time Spent with Patient: Total time spent is greater than 50% in coordination of care (as documented) at patient's floor/unit and/or counseling patient: Coding Level of Care Code 80735 Initial Inpt Care Lvl 3 Diagnoses GIB (gastrointestinal bleeding) K92.1 GI bleed type/associated pathology: melena Symptomatic anemia D64.9 (1) GIB (gastrointestinal bleeding) GI bleed type/associated pathology: melena Qualified Code(s): K92.1 - Melena
[2020-11-01 17:56] LABS: Hematocrit (blood only) 28.7 % (37-47); Hemoglobin 8.4 g/dL (12.0-16.0); Mean Corpuscular Hemoglobin 24.1 pg (25-34); Mean Corpuscular Hgb Conc 29.3 g/dL (32-36); Mean Corpuscular Volume 82.5 fL (80-100); Mean Platelet Volume 11.2 fL (7.4-10.4); Nucleated RBC # (auto) 0.05 K/uL (0-0); Nucleated RBC % (auto) 1.2 %; Platelet Count 127 K/uL (130-400); RDW Coefficient of Variation 19.5 % (11.5-14.5); RDW Standard Deviation 58.7 fL (36.4-46.3); Red Blood Count 3.48 M/uL (4.2-5.4); White Blood Count 4.31 K/uL (4.8-10.8)
[2020-11-01 17:57] LABS: Basophils # (auto) 0.02 K/uL (0-0.2); Basophils % (auto) 0.5 %; Eosinophils # (auto) 0.05 K/uL (0-0.5); Eosinophils % (auto) 1.2 %; Immature Granulocytes # (auto) 0.02 K/uL (0.00-0.02); Immature Granulocytes % (auto) 0.5 %; Lymphocytes # (auto) 1.17 K/uL (1.2-3.4); Lymphocytes % (auto) 27.1 %; Monocytes # (auto) 0.27 K/uL (0.11-0.59); Monocytes % (auto) 6.3 %; Neutrophils # (auto) 2.78 K/uL (1.4-6.5); Neutrophils % (auto) 64.4 %; Platelet Estimate Normal (Normal); Polychromasia 1+
[2020-11-01] MEDS ORDERED: LAVAGE SOLUTION 4000ML PO SCH (18:00)
[2020-11-01] MEDS: LORazepam 0.5 MG TAB PO SCH (20:55)
[2020-11-02] MEDS: PANTOprazole 40 MG in DEXTROSE 5% 100 ML IV SCH ×4 (04:40→16:45)
[2020-11-02 07:24] LABS: Mean Corpuscular Hgb Conc 30.1 g/dL (32-36)
[2020-11-02 07:47] LABS: Hematocrit (blood only) 27.2 % (37-47); Hemoglobin 8.2 g/dL (12.0-16.0); Mean Corpuscular Hemoglobin 24.3 pg (25-34); Mean Corpuscular Volume 80.7 fL (80-100); RDW Coefficient of Variation 20.2 % (11.5-14.5); RDW Standard Deviation 59.5 fL (36.4-46.3); Red Blood Count 3.37 M/uL (4.2-5.4); White Blood Count 4.38 K/uL (4.8-10.8)
[2020-11-02 07:50] LABS: Mean Platelet Volume 11.1 fL (7.4-10.4); Platelet Count 126 K/uL (130-400); Platelet Estimate Normal (Normal)
[2020-11-02 08:07] LABS: BUN Creatinine Ratio 14.8 (10-20); Calcium 8.3 mg/dl (8.5-10.1); Creatinine Clr Calc Pharmacy 54.8 ml/min; Est GFR (African American) 56.4 ml/min; Est GFR (Non-African American) 48.7 ml/min; Potassium 3.1 mmol/L (3.5-5.1)
--- NOTE | 2020-11-02 08:28 | History & Physical Bridge Note ---
Date of Service November 02, 2020 History & Physical Bridge Note I have examined the patient, reviewed the History & Physical and in the interval since the performance of the History & Physical I have noted the following changes of clinical significance: no changes noted Proceed with EGD. proceed with colonoscopy. risks/benefits and procedure discussed with patient, who agrees to proceed
[2020-11-02] MEDS: METOPROLOL TARTRATE 25 MG TAB PO SCH ×2 (10:10→21:30)
[2020-11-02] MEDS: FUROSEMIDE 40 MG TAB PO SCH (10:10)
[2020-11-02] MEDS: ATORVASTATIN 40 MG TAB PO SCH (10:10)
[2020-11-02] MEDS: PARoxetine HCL 20 MG TAB PO SCH (10:10)
[2020-11-02] MEDS: FLUTICASONE FUROATE 100MCG 14 PUFFS/INHALER INH SCH (10:11)
[2020-11-02] MEDS: UMECLIDINIUM/VILANTEROL 62.5/25MCG 7 PUFFS/INHALER INH SCH (10:11)
--- NOTE | 2020-11-02 13:59 | Hospitalist Progress Note ---
Date of Service November 02, 2020 Assessment & Plan (1) Acute blood loss anemia: acute blood loss anemia from a GI source encouraged by circulating anticoagulant of Eliquis. Holding Eliquis and aspirin. Transfused 3 units packed red blood cells treated with protonix drip initially EGD on 11/02: normal colonoscopy on 11/02: non bleeding hemorrhoids Hb is down very slightly from 8.4 to 8.2 today, BP stable no signs of bleeding stop Protonix IV repeat H/H in the morning, discuss follow up with GI (2) Atrial fibrillation: Continue rate controlling agent of metoprolol with small sip of water Eliquis on hold due to concerns for GI bleeding (3) COPD (chronic obstructive pulmonary disease): Continue on pharmacy substituted for Trelegy inhaler (4) Depression: The patient is maintained on Paxil 20 Ativan 0.5 at bedtime (5) Hyperlipidemia: Patient continues on atorvastatin 40 (6) CKD (chronic kidney disease): ckd3 stop ivf at this time (7) DVT prophylaxis: VTE prophylaxis is contraindicated we will proceed with SCDs. Admission and Anticipated Discharge Date Admission Date: October 31, 2020 Subjective patient doing well, tolerated bowel prep, stools clear this morning no abdominal pain, no vomiting, no signs of GI bleeding breathing stable, no chest pain, no fevers went for EGD and colonoscopy, no significant findings to suggest source of bleeding Hb 8.2 this morning, vitals stable d/w patient and her family, will repeat H/H in the morning, if stable will then discuss discharge and GI follow up Review of Systems Review of Systems: All systems reviewed & are unremarkable except as noted in Subjective Physical Exam Constitutional: WD/WN, vitals as above no acute distress Neck: trachea midline, no thyromegaly Respiratory: normal respiratory effort, lungs clear to auscultation Cardiovascular: RRR, no murmur, no edema Gastrointestinal (Abdomen): normal bowel sounds, soft, nontender, no hepatosplenomegaly Musculoskeletal: no cyanosis or clubbing, extremities motor strength 5/5 Skin: no rashes, warm and dry Neurologic: patellar DTR's 2+ bilat, sensation intact and PERRL, EOMI, accommodation nl, no face palsy, no dysarthria Psychiatric: A+Ox3, euthymic affect Lymphatic: no cervical or axillary lymphadenopathy Results & Data Results & Data ([facility]) Vital Signs (Past 12 Hours) Vital Signs Temp Pulse Pulse Resp BP Pulse Ox 11/02/20 12:05 36.9 C 60 16 148/75 H 94 11/02/20 07:36 36.8 C 64 16 155/57 H 92 11/02/20 03:56 36.9 C 64 20 179/72 H 97 11/02/20 02:59 63 12 91 Laboratory Results Laboratory Results - last 24 hr 11/01/20 11/02/20 11/02/20 16:58 07:10 07:10 WBC 4.31 L 4.38 L RBC 3.48 L 3.37 L Hgb 8.4 L 8.2 L Hct 28.7 L 27.2 L MCV 82.5 D 80.7 MCH 24.1 L 24.3 L MCHC 29.3 L 30.1 L RDW Std Deviation 58.7 H 59.5 H RDW Coeff of Giana 19.5 H 20.2 H Plt Count 127 L 126 L MPV 11.2 H 11.1 H Immature Gran % (Auto) 0.5 Neut % (Auto) 64.4 Lymph % (Auto) 27.1 [place] % (Auto) 6.3 Eos % (Auto) 1.2 Baso % (Auto) 0.5 Neut # (Auto) 2.78 Lymph # (Auto) 1.17 L [place] # (Auto) 0.27 Eos # (Auto) 0.05 Baso # (Auto) 0.02 Immature Gran # (Auto) 0.02 Absolute Nucleated RBC 0.05 H Nucleated RBC % (auto) 1.2 Platelet Estimate Normal Normal Polychromasia 1+ Sodium Potassium Chloride Carbon Dioxide Anion Gap BUN Creatinine Est Cr Clr Drug Dosing Est GFR ( Amer) Est GFR (Non-Af Amer) BUN/Creatinine Ratio Glucose Calcium Cryoglobulin Cancelled Cryoglobulin Cryocrit Cancelled 11/02/20 11/02/20 07:10 07:45 WBC RBC Hgb Hct MCV MCH MCHC RDW Std Deviation RDW Coeff of Giana Plt Count MPV Immature Gran % (Auto) Neut % (Auto) Lymph % (Auto) [place] % (Auto) Eos % (Auto) Baso % (Auto) Neut # (Auto) Lymph # (Auto) [place] # (Auto) Eos # (Auto) Baso # (Auto) Immature Gran # (Auto) Absolute Nucleated RBC Nucleated RBC % (auto) Platelet Estimate Polychromasia Sodium 142 Potassium 3.1 L D Chloride 106 Carbon Dioxide 30 Anion Gap 6.0 BUN 17 Creatinine 1.12 Est Cr Clr Drug Dosing 54.8 Est GFR ( Amer) 56.4 Est GFR (Non-Af Amer) 48.7 BUN/Creatinine Ratio 14.8 Glucose 87 Calcium 8.3 L Cryoglobulin Pending Cryoglobulin Cryocrit Pending Medications Administered Current Inpatient Medications Acetaminophen (Acetaminophen 325 Mg Tab) 650 mg PO Q4H PRN PRN Reason: Pain or Fever Stop: 11/30/20 20:07 Atorvastatin Calcium (Atorvastatin 40 Mg Tab) [facility] [place] Stop: 12/01/20 08:59 Last Admin: 11/02/20 10:10 Dose: Not Given Documented by: Fluticasone Furoate (Fluticasone Furoate 100mcg 14 Puffs/Inhaler) 1 puffs INH DAILY [facility]; Protocol Stop: 12/01/20 08:59 Last Admin: 11/02/20 10:11 Dose: 1 puffs Documented by: Furosemide (Furosemide 40 Mg Tab) 40 [facility] [place] Stop: 12/01/20 08:59 Last Admin: 11/02/20 10:10 Dose: Not Given Documented by: Pantoprazole Sodium 40 mg/ (Dextrose) 100 mls @ 20 mls/hr IV Q5H [facility] Stop: 11/30/20 16:42 Last Admin: 11/02/20 10:10 Dose: 8 mg/hr, 20 mls/hr Documented by: Promethazine HCl 12.5 mg/ (Sodium Chloride) 50.5 mls @ 202 mls/hr IV Q6H PRN PRN Reason: Nausea And Vomiting Stop: 11/30/20 20:07 Lorazepam (Lorazepam 0.5 Mg Tab) 0.5 mg PO HS [facility] Stop: 11/30/20 20:59 Last Admin: 11/01/20 20:55 Dose: 0.5 mg Documented by: Metoprolol Tartrate (Metoprolol Tartrate 25 Mg Tab) 25 mg PO BID [facility] Stop: 11/30/20 20:59 Last Admin: 11/02/20 10:10 Dose: Not Given Documented by: Metoprolol Tartrate (Metoprolol Tartrate 1 Mg/Ml Vial) 5 mg IV Q4 PRN PRN Reason: sbp> 185, dbp >95, HR >120 Stop: 11/30/20 20:07 Ondansetron HCl (Ondansetron Inj 2 Mg/Ml 2 Ml Vial) 4 mg IV Q6H PRN PRN Reason: Nausea Stop: 11/30/20 20:07 Paroxetine HCl (Paroxetine Hcl 20 Mg Tab) 20 mg PO QAM [facility] Stop: 12/01/20 08:59 Last Admin: 11/02/20 10:10 Dose: Not Given Documented by: Umeclidinium/Vilanterol (Umeclidinium/Vilanterol 62.5/25mcg 7 Puffs/Inhaler) 1 puffs INH DAILY [facility]; Protocol Stop: 12/01/20 08:59 Last Admin: 11/02/20 10:11 Dose: 1 puffs Documented by: PG Care Time/CCT Total # of Minutes Spent Total Time Spent with Patient: Total time spent is greater than 50% in coordination of care (as documented) at patient's floor/unit and/or counseling patient: Coding Level of Care Code 18630 Subseq Hosp Care Lvl 2 Diagnoses Acute blood loss anemia D62 Atrial fibrillation I48.91 COPD (chronic obstructive pulmonary disease) J44.9 Depression F32.9 Hyperlipidemia E78.5 CKD (chronic kidney disease) N18.9 DVT prophylaxis Z29.9
--- NOTE | 2020-11-02 14:49 | Anesthesiology Consultation ---
Date of Service November 02, 2020 Assessment & Plan Chart Review Chart Review: Acceptable Risk for Surgery Consults Requested none ASA ASA3 Proposed Anesthesia Anesthesia Type: MAC Risk / Benefits Reviewed With: PT / POA / Parent / Guardian, Accepts Plan and Informed Consent Obtained History Surgery Operation Date: 11/02/20 18:15 Proposed Procedures p Colonoscopy EGD Dr. Mclaughlin - Chet Mclaughlin MD Height/Weight Height: 5 ft 6 in Weight: 105 kg Allergies Allergy/AdvReac Type Severity Reaction Status Date / Time No Known Allergies Allergy Verified 10/31/20 15:51 Medications Home Medications Medication Instructions Recorded Confirmed Last Taken ascorbic acid (vitamin C) [Vitamin 500 mg PO QAM 03/02/18 10/31/20 10/31/20 C] atorvastatin 40 mg PO QAM 03/02/18 10/31/20 10/31/20 lorazepam [Ativan] 0.5 mg PO HS 03/02/18 10/31/20 10/30/20 omega 3-bvy-pbz-fish oil [Fish Oil] 1 tab PO QAM 03/02/18 10/31/20 10/31/20 paroxetine HCl 20 mg PO QAM 03/02/18 10/31/20 10/31/20 potassium chloride [Klor-Con M20] 20 meq PO QAM 03/02/18 10/31/20 10/31/20 vitamin E 400 unit PO QAM 03/02/18 10/31/20 10/31/20 cholecalciferol (vitamin D3) 1,000 unit PO QAM 11/26/18 10/31/20 10/31/20 [Vitamin D3] apixaban [Eliquis] 5 mg PO BID 10/31/20 10/31/20 10/31/20 aspirin 81 mg PO QAM 10/31/20 10/31/20 10/31/20 t avhcucbhcnh-fpcharfvh-uakjbmpy 1 inh INHALATION BID 10/31/20 10/31/20 10/31/20 [Trelegy Ellipta] furosemide 40 mg PO QAM 10/31/20 10/31/20 10/31/20 metoprolol tartrate 25 mg PO BID 10/31/20 10/31/20 10/31/20 spironolactone 25 mg PO QAM 10/31/20 10/31/2010/31/21 Active Medications Generic Name Dose Route Start Last Admin Trade Name Jemq PRN Reason Stop Dose Admin Atorvastatin Calcium 40 mg 11/01/20 09:00 11/02/20 10:10 Atorvastatin 40 Mg Tab PO 12/01/20 08:59 Not Given QAM [facility] Fluticasone Furoate 1 puffs 11/01/20 09:00 11/02/20 10:11 Fluticasone Furoate 100mcg 14 Puffs/Inhaler INH 12/01/20 08:59 1 puffs DAILY [facility] Administration Protocol Furosemide 40 mg 11/01/20 09:00 11/02/20 10:10 Furosemide 40 Mg Tab PO 12/01/20 08:59 Not Given QAM [facility] Pantoprazole Sodium 40 mg/ 100 mls @ 20 mls/hr 10/31/20 16:43 11/02/20 14:27 Dextrose IV 11/30/20 16:42 Infused Q5H [facility] Infusion 8 MG/HR Lorazepam 0.5 mg 10/31/20 21:00 11/01/20 20:55 Lorazepam 0.5 Mg Tab PO 11/30/20 20:59 0.5 mg HS [facility] Administration Metoprolol Tartrate 25 mg 10/31/20 21:00 11/02/20 10:10 Metoprolol Tartrate 25 Mg Tab PO 11/30/20 20:59 Not Given BID [facility] Paroxetine HCl 20 mg 11/01/20 09:00 11/02/20 10:10 Paroxetine Hcl 20 Mg Tab PO 12/01/20 08:59 Not Given QAM [facility] Umeclidinium/Vilanterol 1 puffs 11/01/20 09:00 11/02/20 10:11 Umeclidinium/Vilanterol 62.5/25mcg 7 Puffs/Inhaler INH 12/01/20 08:59 1 puffs DAILY [facility] Administration Protocol NPO Date Last Intake of Fluids: 11/02/20 Time Last Intake of Fluids: 00:00 Date Last Intake of Solids: 10/31/20 Time Last Intake of Solids: 13:00 Past Medical History Medical History (Updated 11/02/20 @ 14:59 by John Bernal MD) Anxiety Atrial fibrillation Bulging disc 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 obstructive pulmonary disease COPD (chronic obstructive pulmonary disease) Depression Edema of both legs x 3 weeks - pcp aware - recently started on lasix GERD (gastroesophageal reflux disease) Hearing deficit Hyperlipidemia Hypertension Osteoarthritis Exercise / Class Metabolic Activity III < 4 Walking/Shop/Light housework Past Surgical History Surgical History History of cholecystectomy History of colonoscopy History of surgery Rt eye keratectomy History of tonsillectomy and adenoidectomy History of tooth extraction ALL ON TOP, MOST ON BOTTOM History of total abdominal hysterectomy and bilateral salpingo-oophorectomy Past Anesthesia History No Hx of Anesthesia Complications and No Family Hx of Anesthesia Complications History of PONV No Hx of PONV and No Hx of Motion Sickness Social History Smoking Status: Former smoker tobacco type: cigarettes Smoking cigarettes per day: 1-2 A DAY FOR 50 YRS Hx Alcohol Use: Yes Alcohol type: wine alcohol intake frequency: holidays/special occasions only Hx Substance Use: No substance use type: does not use Physical Exam Vital Signs Last Vital Signs Temp 37.3 C 11/02/20 14:35 Pulse 75 11/02/20 14:35 Resp 16 11/02/20 14:35 BP 162/77 H 11/02/20 14:35 Pulse Ox 92 11/02/20 14:35 ENMT Mouth: + dentures; no loose teeth Thyromental Distance: > or= 3.5 Finger Breadths Mallampati Class: II Neck normal visual inspection Respiratory normal respiratory effort; no respiratory distress Auscultation: lungs clear to auscultation bilaterally; no rales, no rhonchi and no wheezes Cardiovascular Rate/Rhythm: regular rate and regular rhythm Heart Sounds: + murmur Musculoskeletal Spine: normal cervical ROM Neurologic moves all extremities Testing Laboratory Results 11/02/20 07:10 11/02/20 07:10 PT 10.9 Seconds (9.0-12.0) 11/01/20 06:08 INR 1.1 (0.9-1.1) 11/01/20 06:08 APTT 20.4 Seconds (21.0-31.0) L 10/31/20 15:30 Blood Type O Positive 10/31/20 16:47 Antibody Screen NEGATIVE 10/31/20 16:47
[2020-11-02] MEDS ORDERED: LIDOCAINE 2% 2 ML VIAL/AMP(20MG/ML) INFIL ONE (15:07)
[2020-11-02] MEDS ORDERED: PROPOFOL IV EMULSION 10 MG/ML 20 ML VIAL IV ONE (15:07)
[2020-11-02] MEDS ORDERED: GLYCOPYRROLATE 0.2 MG/ML VIAL ONE (15:24)
--- NOTE | 2020-11-02 15:32 | GI REPORT ---
Patient Name: Nella Rose Procedure Date: 11/02/2020 2:55 PM Date of : 1945 Admit Type: Inpatient Age: 75 Gender: Female Attending MD: Chet Mclaughlin MD Procedure: Upper GI endoscopy Providers: Chet Mclaughlin MD Referring MD: Hank Saldaña Indications: Unexplained iron deficiency anemia Medicines: Monitored Anesthesia Care Complications: No immediate complications. Estimated blood loss: None. Estimated Blood Loss: Estimated blood loss: none. Procedure: Pre-Anesthesia Assessment: - Prior Anticoagulants: The patient has taken no previous anticoagulant or antiplatelet agents. - ASA Grade Assessment: II - A patient with mild systemic disease. After obtaining informed consent, the endoscope was passed under direct vision. Throughout the procedure, the patient's blood pressure, pulse, and oxygen saturations were monitored continuously. The Endoscope was introduced through the mouth, and advanced to the second part of duodenum. The upper GI endoscopy was accomplished without difficulty. The patient tolerated the procedure well. Findings: The examined esophagus was normal. The entire examined stomach was normal. The duodenal bulb and second portion of the duodenum were normal. Impression: - Normal esophagus. - Normal stomach. - Normal duodenal bulb and second portion of the duodenum. - No specimens collected. Recommendation: - Return patient to hospital [facility] for ongoing care. - Advance diet as tolerated today. Chet Mclaughlin MD 11/02/2020 3:32:18 PM This report has been signed electronically. Note Initiated On: 11/02/2020 2:55 PM Number of Addenda: 0 I attest to the content of the Intraoperative Record and orders documented therein, exceptions below {[id number]}
--- NOTE | 2020-11-02 15:34 | GI REPORT ---
Patient Name: Nella Rose Procedure Date: 11/02/2020 2:54 PM Date of : 1945 Admit Type: Inpatient Age: 75 Gender: Female Attending MD: Chet Mclaughlin MD Procedure: Colonoscopy Providers: Chet Mclaughlin MD Referring MD: Hank Saldaña Indications: Unexplained iron deficiency anemia Medicines: Monitored Anesthesia Care Complications: No immediate complications. Estimated blood loss: None. Estimated Blood Loss: Estimated blood loss: none. Procedure: Pre-Anesthesia Assessment: - Prior Anticoagulants: The patient has taken no previous anticoagulant or antiplatelet agents. - ASA Grade Assessment: II - A patient with mild systemic disease. After I obtained informed consent, the scope was passed under direct vision. Throughout the procedure, the patient's blood pressure, pulse, and oxygen saturations were monitored continuously. The Scope was introduced through the anus and advanced to the cecum, identified by appendiceal orifice and ileocecal valve. The colonoscopy was performed without difficulty. The patient tolerated the procedure well. The quality of the bowel preparation was poor. Findings: Non-bleeding internal hemorrhoids were found. The hemorrhoids were small. Copious quantities of liquid stool was found in the entire colon, making visualization difficult. No evidence of blood or active bleeding. Impression: - Preparation of the colon was poor. - Non-bleeding internal hemorrhoids. - Stool in the entire examined colon. - No specimens collected. Recommendation: - Advance diet as tolerated today. - Return patient to hospital [facility] for ongoing care. Chet Mclaughlin MD 11/02/2020 3:34:08 PM This report has been signed electronically. Note Initiated On: 11/02/2020 2:54 PM Number of Addenda: 0 I attest to the content of the Intraoperative Record and orders documented therein, exceptions below {[id number]}
--- NOTE | 2020-11-02 15:43 | Anesthesiology Progress Note ---
Date of Service November 02, 2020 Anesthesia Post Procedure Vital Signs Vital Signs: Temp Pulse Pulse Pulse Resp BP Pulse Ox 11/02/20 14:35 37.3 C 75 16 162/77 H 92 11/02/20 12:05 36.9 C 60 16 148/75 H 94 11/02/20 07:36 36.8 C 64 16 155/57 H 92 11/02/20 03:56 36.9 C 64 20 179/72 H 97 11/02/20 02:59 63 12 91 11/01/20 23:11 36.8 C 60 24 162/85 H 94 11/01/20 20:08 36.7 C 63 24 166/76 H 92 Pulse Ox 11/02/20 14:35 11/02/20 12:05 11/02/20 07:36 11/02/20 03:56 11/02/20 02:59 11/01/20 23:11 11/01/20 20:08 92 Pain Intensity Generalized: Pain Intensity: 5 Transfer of Care Handoff Completed per policy Notes Mental Status: alert / awake / arousable Patient Amnestic to Procedure: Yes Nausea / Vomiting: adequately controlled Pain: adequately controlled Airway Patency, RR, SpO2: stable & adequate BP & HR: stable & adequate Hydration State: stable & adequate Anesthetic Complications: no major complications apparent and Pt Satisfied with anesthetic care
[2020-11-02] MEDS: LORazepam 0.5 MG TAB PO SCH (22:37)
[2020-11-03 06:34] LABS: Mean Corpuscular Hgb Conc 29.6 g/dL (32-36)
[2020-11-03 07:00] LABS: Mean Corpuscular Hemoglobin 24.4 pg (25-34); Mean Corpuscular Volume 82.3 fL (80-100); RDW Coefficient of Variation 20.4 % (11.5-14.5); RDW Standard Deviation 61.9 fL (36.4-46.3); Red Blood Count 3.28 M/uL (4.2-5.4); White Blood Count 3.71 K/uL (4.8-10.8)
[2020-11-03 07:09] LABS: BUN Creatinine Ratio 13.3 (10-20); Calcium 8.8 mg/dl (8.5-10.1); Creatinine Clr Calc Pharmacy 57.3 ml/min; Est GFR (African American) 59.6 ml/min; Est GFR (Non-African American) 51.5 ml/min; Potassium 3.5 mmol/L (3.5-5.1)
[2020-11-03 07:11] LABS: Mean Platelet Volume 10.6 fL (7.4-10.4); Platelet Count 130 K/uL (130-400); Platelet Estimate Decreased (Normal)
[2020-11-03] MEDS: METOPROLOL TARTRATE 25 MG TAB PO SCH (08:08)
[2020-11-03] MEDS: ATORVASTATIN 40 MG TAB PO SCH (08:08)
[2020-11-03] MEDS: PARoxetine HCL 20 MG TAB PO SCH (08:08)
[2020-11-03] MEDS: FLUTICASONE FUROATE 100MCG 14 PUFFS/INHALER INH SCH (08:09)
[2020-11-03] MEDS: UMECLIDINIUM/VILANTEROL 62.5/25MCG 7 PUFFS/INHALER INH SCH (08:09)
[2020-11-03] MEDS: FUROSEMIDE 40 MG TAB PO SCH (08:09)
--- NOTE | 2020-11-03 16:04 | Discharge Summary ---
Date of Service November 03, 2020 Admission HPI Per Admitting Provider Patient recently discharged from [facility] with diagnosis of A. fib restarted on Eliquis and metoprolol having come off of verapamil. Patient presents with blood loss anemia with a hemoglobin of 5.6 and melena with heme positive stool from below according to the emergency room physician. Her blood pressure stable in the ER she is slightly tachypneic but does have a history of COPD. Patient was only discharged on a baby aspirin on Eliquis which seemed to be appropriate dosing. Patient is consented for to inspect her blood cells in the emergency department she is on diuretics however echocardiogram from September 22 shows an EF to be 70 subsequently the diuretics may be for cor pulmonale or peripheral edema from her COPD. Principal Diagnosis symptomatic anemia, anemia due to GI bleed Discharge Exam Constitutional WD/WN, vitals as above no acute distress Neck trachea midline, no thyromegaly Respiratory normal respiratory effort, lungs clear to auscultation Cardiovascular RRR, no murmur, no edema Gastrointestinal (Abdomen) normal bowel sounds, soft, nontender, no hepatosplenomegaly Musculoskeletal no cyanosis or clubbing, extremities motor strength 5/5 Skin no rashes, warm and dry Neurologic patellar DTR's 2+ bilat, sensation intact and PERRL, EOMI, accommodation nl, no face palsy, no dysarthria Psychiatric A+Ox3, euthymic affect Lymphatic no cervical or axillary lymphadenopathy Discharge Data Allergies Allergy/AdvReac Type Severity Reaction Status Date / Time No Known Allergies Allergy Verified 10/31/20 15:51 Consultations 10/31/20 16:28 ED Decision to Admit Stat 10/31/20 20:08 Consult Gastroenterology Routine Procedures Performed Operation Date: 11/02/20 18:15 Actual Procedures p Esophagogastroduodenoscopy - Chet Mclaughlin MD s Colonoscopy - Chet Mclaughlin MD Hospital Course (1) Acute blood loss anemia: acute blood loss anemia from a GI source encouraged by circulating anticoagulant of Eliquis. Holding Eliquis and aspirin. Transfused 3 units packed red blood cells treated with protonix drip initially EGD on 11/02: normal colonoscopy on 11/02: non bleeding internal hemorrhoids, no other lesions Hb went to 8.4 after transfusions, down a little at 8.0 but no signs of bleeding her entire stay BP has been stable, eating well has some loose stools today but discussed that the prep was likely still having an effect, should resolve feels much better with Hb up to 8.0 d/w Dr. Mclaughlin, will hold Eliquis and asprin for 5 more days, can resume 11/09 will follow up with GI, consider push enteroscopy as next part of work up check CBC on 11/06 told to come back to the ED if she has any signs of bleeding (2) Atrial fibrillation: Continue rate control with metoprolol Eliquis on hold due to concerns for GI bleeding, continue to hold for 5 more days (3) COPD (chronic obstructive pulmonary disease): Continue on pharmacy substituted for Trelegy inhaler stable on room air today, able to ambulate without need for oxygen she says her breathing is at baseline (4) Depression: The patient is maintained on Paxil 20 Ativan 0.5 at bedtime (5) Hyperlipidemia: Patient continues on atorvastatin 40 (6) CKD (chronic kidney disease): ckd3 stop ivf at this time Total Time Total Time Spent Total Time Spent (In Minutes): 34 minutes Total Time Includes: Examination of the Patient, Discharge Planning, Medication Reconciliation and Communication With Other Providers (Dr. Mclaughlin) Discharge Plan Discharge Items Patient Disposition: Home - Self-Care Reason For Visit: Acute Blood loss Anemia Discharge Diagnosis: Blood loss anemia from possible GI bleed Normal EGD and colonoscopy Atrial fibrillation on Eliquis chronically Condition on Discharge: Good Goals: hold Eliquis for 5 days follow up with CBC on Monday follow up with gastroentrology Activity: Resume your previous activity Driving/Machine Use: No limitations Weightbearing: Full weightbearing Non-emergency contact: Primary Care Provider and [employer] Call non-emergency contact if: you have any medication questions and your symptoms worsen Follow-up/Referrals: Chet Mclaughlin MD [Physician] - 11/10/20 1:30 pm (1-2 weeks) Hermelinda Penn MD [Primary Care Provider] - (Doctor office will contact Nella to schedule follow up. one week) Diet: Heart Healthy Ambulatory Orders: Complete Blood Count no Diff (Routine) Timeframe: [id number] Location: Determined by Patient Ordered By: Hank Fenton Attending Provider Instructions: Medications: - ELIQUIS and ASPIRIN: please hold for 5 more days, can resume on 11/09/20 - FERROUS SULFATE: 325mg twice a day for iron supplementation to help make RBC Symptomatic anemia, hemoglobin low at 5.6 suggesting a slow blood loss, stool was positive for blood when tested transfused total of 3 units of packed RBC, hemoglobin is now 8.0, no signs of bleeding EGD was normal, no signs of ulcers, AVM, vascular ectasia, gastritis colonoscopy showed internal hemorrhoids with no bleeding, poor prep but no other lesions will hold Eliquis and Aspirin another 5 days continue with heart healthy diet recommend you check CBC on Monday, take iron twice a day if you have any signs of brisk bleeding such as dark liquid stools or bright red bleeding please return to the emergency room will follow up with PCP and with gastroenterology Atrial fibrillation: right now you are in normal sinus rhythm in 60-70's could have paroxysmal atrial fibrillation reschedule appt with Dr. Razo Pending Studies at Discharge: No Stand-Alone Forms: My [employer], Smoking Cessation Medications and DC Order Prescriptions: New ferrous sulfate 325 mg (65 mg iron) tablet,delayed release (DR/EC) 325 mg PO BID Qty: 60 RF: 3 Continued cholecalciferol (vitamin D3) [Vitamin D3] 1,000 unit Capsule 1,000 unit PO QAM RF: 0 atorvastatin 40 mg Tablet 40 mg PO QAM RF: 0 potassium chloride [Klor-Con M20] 20 mEq Tablet,Er Particles/Crystals 20 meq PO QAM RF: 0 lorazepam [Ativan] 0.5 mg Tablet 0.5 mg PO HS RF: 0 ascorbic acid (vitamin C) [Vitamin C] 500 mg Tablet 500 mg PO QAM RF: 0 paroxetine HCl 20 mg Tablet 20 mg PO QAM RF: 0 vitamin E 400 unit Capsule 400 unit PO QAM RF: 0 omega 2-mkh-ply-fish oil [Fish Oil] 1,000 mg (120 mg-180 mg) Capsule 1 tab PO QAM RF: 0 furosemide 40 mg tablet 40 mg PO QAM RF: 0 aspirin 81 mg Tablet,Delayed Release (Dr/Ec) 81 mg PO QAM RF: 0 spironolactone 25 mg tablet 25 mg PO QAM RF: 0 metoprolol tartrate 25 mg tablet 25 mg PO BID RF: 0 Eliquis 5 mg tablet 5 mg PO BID RF: 0 Trelegy Ellipta 100-62.5-25 mcg blister with device 1 inh INHALATION BID RF: 0 Discharge Orders: Discharge Order (Routine); Ordered 11/03/20 Ordered By: Hank Saldaña Admission Data Admit Date/Time: 10/31/20 17:24 Attending Provider: Hank Saldaña Admit Provider: Piotr Glover Primary Care Provider: Hermelinda Penn Other Providers: Piotr Glover ; Emeterio Colon Other Interventions: Discharge Summary Assessment (RN) Last Done: 11/03/20 15:02 Coding Level of Care Code D/C Day Management >30 mins Diagnoses Acute blood loss anemia D62 Atrial fibrillation I48.91 COPD (chronic obstructive pulmonary disease) J44.9 Depression F32.9 Hyperlipidemia E78.5 CKD (chronic kidney disease) N18.9
[2020-11-07 23:31] LABS: % Cryocrit DNR; Cryoglobulin, QL Negative (Negative)
== END 2020-11-03 17:59 | disposition home or self-care (01) | DRG 813 ==
LOC: ED 15:19 → SUATTDRO 17:24 → 2E 17:24

== ENCOUNTER 2022-01-14 14:01 | Inpatient (IN) ==
[2022-01-14 14:46] LABS: Basophils # (auto) 0.04 K/uL (0-0.2); Basophils % (auto) 0.7 %; Eosinophils # (auto) 0.05 K/uL (0-0.50); Eosinophils % (auto) 0.9 %; Hematocrit (blood only) 34.6 % (34.1-44.9); Hemoglobin 10.7 g/dl (12.0-16.0); Immature Granulocytes # (auto) 0.02 K/uL (0.00-0.02); Immature Granulocytes % (auto) 0.4 %; Lymphocytes # (auto) 1.42 K/uL (1.2-3.4); Lymphocytes % (auto) 26.6 %; Mean Corpuscular Hemoglobin 26.8 pg (25.0-34.0); Mean Corpuscular Hgb Conc 30.9 g/dL (32.0-36.0); Mean Corpuscular Volume 86.5 fL (80.0-100.0); Mean Platelet Volume 10.7 fL (9.4-12.3); Monocytes # (auto) 0.39 K/uL (0.24-0.82); Monocytes % (auto) 7.3 %; Neutrophils # (auto) 3.42 K/uL (1.4-6.5); Neutrophils % (auto) 64.1 %; Platelet Count 254 K/uL (130-400); RDW Coefficient of Variation 15.5 % (11.5-14.5); RDW Standard Deviation 49.1 fL (36.4-46.3); White Blood Count 5.34 K/ul (4.8-10.8)
--- NOTE | 2022-01-14 14:51 | Emergency Department Note ---
Impression & Plan Acute exacerbation of chronic obstructive pulmonary disease, Heart palpitations, History of atrial fibrillation ED Provider Note NAME: DEBORAH GA AGE: 76 SEX: F : 1945 ARRIVES VIA: Walk-In INFORMANT: [Patient][, ] ED PROVIDER(S): [Zay Hussein MD] Chief Complaint: Palpitations HPI: Patient presents Zen due to concern for palpitations which began around 10 AM and seem to last for approximately 1 hour. Patient states that she does have a prior history of A. fib but is not had a bout of this in about a years time. The patient does follow with Dr. Razo and does take metoprolol and Eliquis. Patient has been taking this regularly. The patient does drink 1/2 cup of caffeinated coffee in the morning and does use tobacco but denies any drugs or alcohol. Patient states that she is compliant with her medications. Patient denies any chest pains or acute shortness of breath. The patient denies any fevers or chills and believes that her appetite has been okay. The patient does not feel as though she is significantly dehydrated. Patient denies any supplements or stimulants. No prior history of thyroid issues. The patient did take her morning meds. ROS: See HPI for pertinent positives and negatives. A total of 10 systems were reviewed and otherwise negative. Past medical history: See below Surgical history: See below Social history: See below Physical Exam: GENERAL: NAD, [wearing a mask,] non-toxic. Wearing glasses. EYE EXAM: Normal conjunctiva. PERRL, no anisocoria and EOM's grossly intact w/o pain. NECK: Supple, no nuchal rigidity, no adenopathy, non-tender. No signs of meningismus. FROM of the neck with good chin to chest and neck extension. No stridor. LUNGS: Expiratory wheeze noted throughout. Normal chest wall mechanics. HEART: Tachycardic and regular, no MRG. ABDOMEN: Abdomen soft, non-tender, normo-active bowel sounds, no masses, no rebound or guarding. BACK: No CVA TTP. SKIN: No rashes and no bruising. UPPER EXTREMITIES: Upper extremities are grossly normal. LOWER EXTREMITIES: Grossly normal, no edema. Trace pretibial edema. NEURO EXAM: A&O x3, cranial nerves II-XII grossly intact, normal speech, moves all 4 extremities. Differential diagnoses: Premature contractions, electrolyte abnormality, cardiac dysrhythmia, thyroid dysfunction, pulmonary embolism, infection, gastrointestinal, as well as other pathologies. Course: Patient was seen and evaluated the bedside. Full history physical exam was performed. EKG interpreted by me Sinus with sinus arrhythmia, fusion complexes and PVCs noted, ventricular rate of 98. Normal QRS, normal axis. Imaging Studies: See Below Cardiac monitoring: An order was placed for continuous cardiac monitoring. The monitor shows a rate of 85 with sinus rhythm. MDM: Patient did present due to concern for palpitations. Blood work was obtained and the patient was given a small amount of IV fluids as her heart rate was slightly above 100 and she was initially seen. Patient's EKG did show PVCs with fusion complexes which may be a component of what she had felt earlier today. Patient is a normal white count with a hemoglobin of 10 which is improved compared to prior. The patient's platelet count is unremarkable with normal kidney function. Patient's troponin is slightly elevated at 15. Chest x-ray showed cardiomegaly but with no acute cardiopulmonary process. Patient denies any chest pains or shortness of breath. When I did reevaluate the patient patient was at 87% on room air but was not complaining of shortness of breath. Patient likely did have an element of COPD when she presented today she did have expiratory wheezes. I did have the patient undergo an ambulatory trial and the patient did have increasing dyspnea and desatted to 88%. I did discuss this as well as the borderline positive troponin with the patient. Patient does not complain of any active chest pain. Patient is agreeable to inpatient treatment at this time. The patient was ordered DuoNeb steroids and magnesium. I did speak the on-call hospitalist Dr. Ruiz and the patient was admitted to the medicine service. Past Med/Surg History Medical History Anxiety Bulging disc Chronic obstructive pulmonary disease COPD (chronic obstructive pulmonary disease) Depression Edema GERD (gastroesophageal reflux disease) GIB (gastrointestinal bleeding) Hearing deficit Hyperlipidemia Hypertension Left ventricular outflow tract obstruction Osteoarthritis Paroxysmal atrial fibrillation Sleep apnea Systolic anterior movement of mitral valve Surgical History History of cholecystectomy History of colonoscopy History of surgery Rt eye keratectomy History of tonsillectomy and adenoidectomy History of tooth extraction ALL ON TOP, MOST ON BOTTOM History of total abdominal hysterectomy and bilateral salpingo-oophorectomy Social History Smoking Status: Never smoker Tobacco Type: Cigarettes Cigarettes Per Day: 1-2 A DAY FOR 50 YRS; Second Hand Exposure: Yes (1ST SMOKED); Hx Alcohol Use: Yes Alcohol type: wine Hx Substance Use: No Preferred Language: Yi 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: Effective [employer] Consultant Required: No Beliefs That Will Affect Care: Cheondoism Cheondoism Beliefs: BECCARIA HOLINESS marital status: Current Living Situation: Spouse Current Living Situation Comment: home Feels Safe at Home: Yes Assistive Devices: Glasses Allergies Allergies Allergy/AdvReac Type Severity Reaction Status Date / Time No Known Allergies Allergy Verified 01/14/22 17:31 Home Meds Home Medications Medication Instructions Recorded Confirmed ascorbic acid (vitamin C) 500 mg 500 mg PO QAM 03/02/18 01/14/22 tablet (Vitamin C) atorvastatin 40 mg tablet 40 mg PO QAM 03/02/18 01/14/22 lorazepam 0.5 mg tablet (Ativan) 0.5 mg PO HS 03/02/18 01/14/22 omega 1-qvq-lek-fish oil 1,000 mg 1 tab PO QAM 03/02/18 01/14/22 (120 mg-180 mg) capsule (Fish Oil) paroxetine HCl 20 mg tablet 20 mg PO QAM 03/02/18 01/14/22 potassium chloride 20 mEq 20 meq PO QAM 03/02/18 01/14/22 tablet,extended release(part/cryst) (Klor-Con M) vitamin E 268 mg (400 unit) capsule 400 unit PO QAM 03/02/18 01/14/22 cholecalciferol (vitamin D3) 25 1,000 unit PO QAM 11/26/18 01/14/22 mcg (1,000 unit) capsule (Vitamin D3) fluticasone fur. 100 mcg-umeclid 1 inh inhalation BID 10/31/20 01/14/22 62.5 mcg-vilant 25 mcg inhalat.powder (Trelegy Ellipta) furosemide 40 mg tablet 40 mg PO QAM 10/31/20 01/14/22 spironolactone 25 mg tablet 25 mg PO QAM 10/31/20 01/14/22 albuterol sulfate 90 mcg/actuation 2 puff inhalation QID PRN 01/14/22 01/14/22 aerosol inhaler (Ventolin HFA) Shortness Of Breath Or Wheezing zinc picolinate 25 mg capsule 0 mg PO DAILY 01/14/22 01/14/22 Previous Rx's Medication Instructions Recorded apixaban 5 mg tablet (Eliquis) 5 mg PO BID #180 tabs 08/09/21 metoprolol tartrate 50 mg tablet 50 mg PO BID #180 tabs 08/09/21 Results & Data (ED) Vital Signs Vital Signs - 24 hr 01/14/22 14:03 01/14/22 14:27 01/14/22 14:32 Temperature 36.6 C Temperature Source Temporal Artery Scan Pulse Rate 102 H Pulse Rate [Radial] 96 H Pulse Rhythm Regular Pulse Rhythm [Radial] Irregular Pulse Strength Normal Pulse Strength [Radial] Normal Respiratory Rate 20 22 Respiratory Effort / Characteristics Non-Labored Spontaneous Non-Labored Spontaneous Non-Labored Spontaneous Respiratory Depth Normal Normal Normal Respiratory Pattern Regular Regular Regular Blood Pressure 116/75 Blood Pressure [Left Arm] 106/68 Blood Pressure Mean 88 Blood Pressure Mean [Left Arm] 80 Blood Pressure Position Sitting Blood Pressure Position [Left Arm] Lying Pulse Oximetry 92 91 Oxygen Delivery Method Room Air Room Air Room Air Sepsis Recent Fever Within 48 Hours No Sepsis New/Unexplained Change in Mental Status No Sepsis Action Taken by Nursing No Action Required 01/14/22 14:41 01/14/22 15:14 01/14/22 15:27 Temperature Temperature Source Pulse Rate 92 H Pulse Rate [Radial] 90 Pulse Rhythm Irregular Pulse Rhythm [Radial] Pulse Strength Pulse Strength [Radial] Respiratory Rate 22 20 Respiratory Effort / Characteristics Non-Labored Spontaneous Respiratory Depth Normal Respiratory Pattern Blood Pressure Blood Pressure [Left Arm] 101/66 Blood Pressure Mean Blood Pressure Mean [Left Arm] 77 Blood Pressure Position Blood Pressure Position [Left Arm] Pulse Oximetry 91 91 91 Oxygen Delivery Method Room Air Room Air Room Air Sepsis Recent Fever Within 48 Hours Sepsis New/Unexplained Change in Mental Status Sepsis Action Taken by Nursing 01/14/22 16:26 01/14/22 17:16 Temperature Temperature Source Pulse Rate Pulse Rate [Radial] 52 L Pulse Rhythm Pulse Rhythm [Radial] Pulse Strength Pulse Strength [Radial] Respiratory Rate 26 H 18 Respiratory Effort / Characteristics Respiratory Depth Respiratory Pattern Blood Pressure Blood Pressure [Left Arm] 104/64 Blood Pressure Mean Blood Pressure Mean [Left Arm] 77 Blood Pressure Position Blood Pressure Position [Left Arm] Pulse Oximetry 88 L 100 Oxygen Delivery Method Room Air Nebulizer Sepsis Recent Fever Within 48 Hours Sepsis New/Unexplained Change in Mental Status Sepsis Action Taken by Jail Medications Current Medication List: was personally reviewed by me Laboratory Data Attestation: I reviewed the patient's lab results. Result diagrams: 01/14/22 14:35 01/14/22 14:35 Lab Results 01/14/22 01/14/22 01/14/22 Range/Units 14:35 14:35 14:35 WBC 5.34 (4.8-10.8) K/ul RBC 4.00 (3.93-5.22) M/uL Hgb 10.7 L (12.0-16.0) g/dl Hct 34.6 (34.1-44.9) % MCV 86.5 (80.0-100.0) fL MCH 26.8 (25.0-34.0) pg MCHC 30.9 L (32.0-36.0) g/dL RDW Std Deviation 49.1 H (36.4-46.3) fL RDW Coeff of Giana 15.5 H (11.5-14.5) % Plt Count 254 (130-400) K/uL MPV 10.7 (9.4-12.3) fL Immature Gran % (Auto) 0.4 % Neut % (Auto) 64.1 % Lymph % (Auto) 26.6 % [place] % (Auto) 7.3 % Eos % (Auto) 0.9 % Baso % (Auto) 0.7 % Neut # (Auto) 3.42 (1.4-6.5) K/uL Lymph # (Auto) 1.42 (1.2-3.4) K/uL [place] # (Auto) 0.39 (0.24-0.82) K/uL Eos # (Auto) 0.05 (0-0.50) K/uL Baso # (Auto) 0.04 (0-0.2) K/uL Immature Gran # (Auto) 0.02 (0.00-0.02) K/uL PT 11.7 (9.0-12.0) Seconds INR 1.1 (0.9-1.1) APTT 28.4 (21.0-31.0) Seconds PTT Ratio 1.0 Sodium 140 (136-145) mmol/L Potassium 4.1 (3.5-5.1) mmol/L Chloride 104 (98-107) mmol/L Carbon Dioxide 28 (21-32) mmol/L Anion Gap 8 (3-11) BUN 20 (6-23) mg/dl Creatinine 1.14 (0.6-1.2) mg/dl Est Cr Clr Drug Dosing 52.2 ml/min Est GFR ( Amer) 54.9 ml/min Est GFR (Non-Af Amer) 47.3 ml/min BUN/Creatinine Ratio 17.5 (10-20) Glucose 121 H (70-99(Fasting)) mg/dl Calcium 8.9 (8.5-10.1) mg/dl Magnesium (1.7-2.4) mg/dl Total Bilirubin 0.5 (0.2-1.0) mg/dl AST 15 (13-39) U/L ALT 11 (7-52) U/L Alkaline Phosphatase 88 (34-104) U/L Troponin I High Sens 15.1 H (0-14) pg/ml Total Protein 7.0 (6.0-8.3) gm/dl Albumin 4.2 (3.4-5.0) gm/dl Globulin 2.8 (2.5-4.0) gm/dl Albumin/Globulin Ratio 1.5 (0.9-2) TSH (0.300-4.500) uIu/ml 01/14/22 01/14/22 Range/Units 14:59 14:59 WBC (4.8-10.8) K/ul RBC (3.93-5.22) M/uL Hgb (12.0-16.0) g/dl Hct (34.1-44.9) % MCV (80.0-100.0) fL MCH (25.0-34.0) pg MCHC (32.0-36.0) g/dL RDW Std Deviation (36.4-46.3) fL RDW Coeff of Giana (11.5-14.5) % Plt Count (130-400) K/uL MPV (9.4-12.3) fL Immature Gran % (Auto) % Neut % (Auto) % Lymph % (Auto) % [place] % (Auto) % Eos % (Auto) % Baso % (Auto) % Neut # (Auto) (1.4-6.5) K/uL Lymph # (Auto) (1.2-3.4) K/uL [place] # (Auto) (0.24-0.82) K/uL Eos # (Auto) (0-0.50) K/uL Baso # (Auto) (0-0.2) K/uL Immature Gran # (Auto) (0.00-0.02) K/uL PT (9.0-12.0) Seconds INR (0.9-1.1) APTT (21.0-31.0) Seconds PTT Ratio Sodium (136-145) mmol/L Potassium (3.5-5.1) mmol/L Chloride (98-107) mmol/L Carbon Dioxide (21-32) mmol/L Anion Gap (3-11) BUN (6-23) mg/dl Creatinine (0.6-1.2) mg/dl Est Cr Clr Drug Dosing ml/min Est GFR ( Amer) ml/min Est GFR (Non-Af Amer) ml/min BUN/Creatinine Ratio (10-20) Glucose (70-99(Fasting)) mg/dl Calcium (8.5-10.1) mg/dl Magnesium 1.8 (1.7-2.4) mg/dl Total Bilirubin (0.2-1.0) mg/dl AST (13-39) U/L ALT (7-52) U/L Alkaline Phosphatase (34-104) U/L Troponin I High Sens (0-14) pg/ml Total Protein (6.0-8.3) gm/dl Albumin (3.4-5.0) gm/dl Globulin (2.5-4.0) gm/dl Albumin/Globulin Ratio (0.9-2) TSH 1.792 (0.300-4.500) uIu/ml Administered Medications Discontinued Medications Albuterol (Albut/Ipratrop 3mg/0.5mg Neb 3 Ml Vial) 6 ml INH NOW STA Stop: 01/14/22 16:57 Last Admin: 01/14/22 17:08 Dose: 6 ml Documented By: RAÚL Sodium Chloride (Nss) 500 mls @ 999 mls/hr IV .Q31M MALICK Stop: 01/14/22 15:45 Last Infusion: 01/14/22 16:14 Dose: 0 mls/hr Documented By: Admin: 01/14/22 15:24 Dose: 999 mls/hr Documented By: RAÚL Magnesium Sulfate/Dextrose (Magnesium Sulfate / D5w) 1 gm in 100 mls @ 100 mls/hr IV NOW STA Stop: 01/14/22 17:55 Last Infusion: 01/14/22 18:16 Dose: 0 mls/hr Documented By: Admin: 01/14/22 17:08 Dose: 100 mls/hr Documented By: RAÚL Methylprednisolone (Methylprednisolone 125 Mg/2 Ml Vial) 60 mg IV NOW STA Stop: 01/14/22 16:57 Last Admin: 01/14/22 17:08 Dose: 60 mg Documented By: RAÚL Imaging Data Radiologist's Impression: Chest X-Ray 01/14/22 15:10 SINGLE VIEW CHEST CLINICAL HISTORY: COPD. Abnormal breath sounds. FINDINGS: An AP, portable, upright chest radiograph is compared to study dated 10/31/2020. The heart is enlarged. The pulmonary vasculature is noncongested. Chronic interstitial thickening is similar to previous. Scarring/atelectasis is noted at the lung bases. No airspace consolidation or large pleural effusion is identified. No pneumothorax is seen. The skeletal structures are osteopenic. The bony thorax is grossly intact. IMPRESSION: Cardiomegaly with no acute cardiopulmonary abnormality. ACT 112: Negative or not required by law. Electronically signed by: Jadiel Hyman M.D. 01/14/2022 3:35 PM Discharge Plan Visit Data Chief Complaint: Arrhythmia/Palpitations Stated Complaint: IRREGULAR HEARTBEAT ED Provider: Zay Hussein Discharge Problem: Acute exacerbation of chronic obstructive pulmonary disease, Heart palpit ations, History of atrial fibrillation Patient Disposition: Admitted As Inpatient Forms Stand Alone Forms: [facility] Prescriptions Prescriptions: No Action Eliquis 5 mg tablet 5 mg PO BID Qty: 180 3RF metoprolol tartrate 50 mg tablet 50 mg PO BID Qty: 180 3RF cholecalciferol (vitamin D3) [Vitamin D3] 1,000 unit Capsule 1,000 unit PO QAM atorvastatin 40 mg Tablet 40 mg PO QAM potassium chloride [Klor-Con M20] 20 mEq Tablet,Er Particles/Crystals 20 meq PO QAM Label Comments: lorazepam [Ativan] 0.5 mg Tablet 0.5 mg PO HS ascorbic acid (vitamin C) [Vitamin C] 500 mg Tablet 500 mg PO QAM paroxetine HCl 20 mg Tablet 20 mg PO QAM vitamin E 400 unit Capsule 400 unit PO QAM omega 8-gjy-kka-fish oil [Fish Oil] 1,000 mg (120 mg-180 mg) Capsule 1 tab PO QAM furosemide 40 mg tablet 40 mg PO QAM spironolactone 25 mg tablet 25 mg PO QAM Trelegy Ellipta 100-62.5-25 mcg blister with device 1 inh INHALATION BID albuterol sulfate [Ventolin HFA] 90 mcg/actuation Hfa Aerosol Inhaler 2 puff INHALATION QID PRN (Reason: Shortness Of Breath Or Wheezing) zinc picolinate 25 mg Capsule 0 mg PO DAILY Referrals Referrals: Hermelinda Penn MD [Primary Care Provider] -
[2022-01-14 15:02] LABS: Albumin Globulin Ratio 1.5 (0.9-2); Albumin Level 4.2 gm/dl (3.4-5.0); BUN Creatinine Ratio 17.5 (10-20); Bilirubin,Total 0.5 mg/dl (0.2-1.0); Calcium 8.9 mg/dl (8.5-10.1); Creatinine Clr Calc Pharmacy 52.2 ml/min; Est GFR (African American) 54.9 ml/min; Est GFR (Non-African American) 47.3 ml/min; Globulin 2.8 gm/dl (2.5-4.0); Potassium 4.1 mmol/L (3.5-5.1)
[2022-01-14 15:07] LABS: INR 1.1 (0.9-1.1); Partial Thromboplastin Time 28.4 Seconds (21.0-31.0); Prothrombin Time 11.7 Seconds (9.0-12.0)
[2022-01-14 15:08] LABS: Troponin I High Sensitivity 15.1 pg/ml (0-14)
[2022-01-14] MEDS ORDERED: SODIUM CHLORIDE 0.9% 500 ML IV SCH (15:15)
--- NOTE | 2022-01-14 15:28 | Electrocardiogram Report ---
Test Reason : Blood Pressure : / mmHG Vent. Rate : 098 BPM Atrial Rate : 065 BPM P-R Int : 164 ms QRS Dur : 090 ms QT Int : 314 ms P-R-T Axes : 043 066 017 degrees QTc Int : 400 ms Sinus rhythm with marked sinus arrhythmia with Premature ventricular complexes or Fusion complexes 1st degree AV block Nonspecific ST abnormality Abnormal ECG When compared with ECG of 31-OCT-2020 15:27, Fusion complexes are now Present Premature ventricular complexes are now Present NH interval has decreased Confirmed by Daniel Kelly ([id number]) on 01/14/2022 3:28:35 PM Referred By: REFERRED SELF Confirmed By:Jet Kelly
--- NOTE | 2022-01-14 15:36 | XRay Report ---
SINGLE VIEW CHEST CLINICAL HISTORY: COPD. Abnormal breath sounds. FINDINGS: An AP, portable, upright chest radiograph is compared to study dated 10/31/2020. The heart i s enlarged. The pulmonary vasculature is noncongested. Chronic interstitial thickening is similar to previous. Scarring/atelectasis is noted at the lung bases. No airspace consolidation or large pleural effusion is identified. No pneumothorax is seen. The skeletal structures are osteopenic. The bony th orax is grossly intact. IMPRESSION: Cardiomegaly with no acute cardiopulmonary abnormality. ACT 112: Negative or not required by law. Electronically signed by: Jadiel Hyman M.D. 01/14/2022 3:35 PM
[2022-01-14] MEDS ORDERED: methylPREDNISolone 125 MG/2 ML VIAL IV STA (16:56)
[2022-01-14] MEDS ORDERED: ALBUT/IPRATROP 3MG/0.5MG NEB 3 ML VIAL INH STA (16:56)
[2022-01-14] MEDS ORDERED: MAGNESIUM SULFATE / D5W 1 GM/100 ML BAG IV STA (16:56)
--- NOTE | 2022-01-14 17:12 | History & Physical Report ---
Date of Service January 14, 2022 Assessment & Plan (1) Acute and chronic respiratory failure with hypoxia: Plan: - History of COPD with SPO2 88% on room air with ambulation. - Received albuterol, IV methylprednisolone, magnesium, IVF in ED. Minimal wheezing after treatments with SpO2 > 95% on RA at rest. - Continue home inhalers. - DuoNeb scheduled. - 40 IV SoluMedrol BID. - Azithromycin daily x 5 days. - Mucinex BID. (2) Elevated troponin: Plan: - 15.1 without EKG evidence to suggest ischemia or infarct. - Repeat troponin this evening, suspect demand 2/2 hypoxia. - Admitted to tele bed. (3) COPD (chronic obstructive pulmonary disease): Plan: - Manage exacerbation as above. (4) CKD (chronic kidney disease): Plan: - Creatinine 1.14, baseline per labs 1 year ago. - Renally dose medications as able, avoid nephrotoxins. - Renal function on a.m. BMP. (5) Tobacco abuse: Plan: - Continues to smoke 1/2 - 1 PPD. Counseled on the importance of quitting due to underlying COPD. - Offered nicotine patch however declines. Patient states she wants to quit cold turkey while she is here. (6) Paroxysmal atrial fibrillation: Plan: - Present with PVCs but no a fib here. - Continue metoprolol, Eliquis. (7) Hypertension: Plan: - Continue metoprolol 50 mg BID. (8) Hyperlipidemia: Plan: - Continue atorvastatin 40 mg daily. (9) Edema: Plan: - Continue Lasix and spironolactone. (10) Depression: Plan: - Continue Paxil 20 mg daily. (11) Anemia: Plan: - 10.7, only prior labs are from when patient was hospitalized with GI bleed in 2020. - No evidence of acute bleeding today, will repeat CT in a.m. with iron studies. - May benefit from PO iron supplementation. Plan - Admit to med/tele. - SCDs, Eliquis for VTE ppx. - Full Code. History of Present Illness Chief Complaint: palpitations and associated SOB this morning Primary Care Provider: Hermelinda Penn MD Nella Rose is a 76-year-old female with past medical history of A. fib on anticoagulation, hypertension, hyperlipidemia, COPD, depression, CKD who presents today with complaints of palpitation. She woke up this morning feeling well, however shortly after she started her day, noticed her heart racing which she thought was her A. fib. She initially was not short of breath, however noticed when she was getting up to do things around her home that she had little more difficulty breathing than usual. She otherwise feels well, has not been sick lately, no fever or chills, increasing cough or sputum production, chest pain. She does continue to smoke half to a pack of cigarettes per day, and has been using her inhalers as prescribed. She has no sick contacts at home, has not had any recent travel. In ED, she is slightly tachycardic, highest HR 102, 26 RR, oxygen saturation in low 90s, but down to 88% on walk test in ED, normotensive. Labs significant for Hgb 10.7, initial hs Trop 15.1, although up with normal limits. Renal function at baseline, no electrolyte abnormalities. CXR showed cardiomegaly without acute cardiopulmonary abnormality. ED course: 500 cc NS, 60 mg IV methylprednisolone, albuterol, magnesium. Allergies Allergy/AdvReac Type Severity Reaction Status Date / Time No Known Allergies Allergy Verified 01/14/22 17:31 Home Medications Medication Instructions Recorded Confirmed Type ascorbic acid (vitamin C) 500 mg 500 mg PO QAM 03/02/18 01/14/22 History tablet (Vitamin C) atorvastatin 40 mg tablet 40 mg PO QAM 03/02/18 01/14/22 History lorazepam 0.5 mg tablet (Ativan) 0.5 mg PO 03/02/18 01/14/22 History omega 4-fmz-dvu-fish oil 1,000 mg 1 tab PO QAM 03/02/18 01/14/22 History (120 mg-180 mg) capsule (Fish Oil) paroxetine HCl 20 mg tablet 20 mg PO QAM 03/02/18 01/14/22 History potassium chloride 20 mEq 20 meq PO QAM 03/02/18 01/14/22 History tablet,extended release(part/cryst) (Klor-Con M) vitamin E 268 mg (400 unit) capsule 400 unit PO QAM 03/02/18 01/14/22 History cholecalciferol (vitamin D3) 25 1,000 unit PO QAM 11/26/18 01/14/22 History mcg (1,000 unit) capsule (Vitamin D3) fluticasone fur. 100 mcg-umeclid 1 inh inhalation BID 10/31/20 01/14/22 History 62.5 mcg-vilant 25 mcg inhalat.powder (Trelegy Ellipta) furosemide 40 mg tablet 40 mg PO QAM 10/31/20 01/14/22 History spironolactone 25 mg tablet 25 mg PO QAM 10/31/20 01/14/22 History apixaban 5 mg tablet (Eliquis) 5 mg PO BID #180 tabs 08/09/21 01/14/22 Rx metoprolol tartrate 50 mg tablet 50 mg PO BID #180 tabs 08/09/21 01/14/22 Rx albuterol sulfate 90 mcg/actuation 2 puff inhalation QID PRN 01/14/22 01/14/22 History aerosol inhaler (Ventolin HFA) Shortness Of Breath Or Wheezing zinc picolinate 25 mg capsule 0 mg PO DAILY 01/14/22 01/14/22 History Past Med/Surg History Medical History Anxiety Bulging disc Chronic obstructive pulmonary disease COPD (chronic obstructive pulmonary disease) Depression Edema GERD (gastroesophageal reflux disease) GIB (gastrointestinal bleeding) Hearing deficit Hyperlipidemia Hypertension Left ventricular outflow tract obstruction Osteoarthritis Paroxysmal atrial fibrillation Sleep apnea Systolic anterior movement of mitral valve Surgical History History of cholecystectomy History of colonoscopy History of surgery Rt eye keratectomy History of tonsillectomy and adenoidectomy History of tooth extraction ALL ON TOP, MOST ON BOTTOM History of total abdominal hysterectomy and bilateral salpingo-oophorectomy Family History (Updated 01/14/22 @ 18:25 by Angelina Montoya PA-C) Other Family history non-contributory Social History Smoking Status: Never smoker Tobacco Type: Cigarettes Cigarettes Per Day: 1-2 A DAY FOR 50 YRS; Second Hand Exposure: Yes (1ST SMOKED); Hx Alcohol Use: Yes Alcohol type: wine Hx Substance Use: No Preferred Language: Urdu 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: Effective 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[employer] Required: No Beliefs That Will Affect Care: Sikhism Sikhism Beliefs: [employer] marital status: Current Living Situation: Spouse Current Living Situation Comment: home Feels Safe at Home: Yes Assistive Devices: Glasses Review of Systems Review of Systems: Constitutional: No fever/chills, weakness, fatigue, myalgias, anorexia, night sweats Eyes: No diplopia, no worsening or blurred vision ENT: normal hearing, no trouble swallowing Respiratory: mild RAMIREZ this AM; No change to chronic cough, sputum, dyspnea at rest Cardiovascular: palpitations this AM; No chest pain, tightness Abdomen: No pain, nausea, vomiting, diarrhea or constipation : Denies dysuria, hematuria, increased urgency/frequency, urinary retention Musculoskeletal: No joint pain, calf pain, swelling Neurologic: No weakness, numbness/tingling, or balance problems Psychiatric: No anxiety or depression Skin: No rash or itch Physical Exam Physical Exam: General: awake, alert, no apparent distress Head: Normocephalic, atraumatic ENT: PERRL, EOMI, no pharyngeal exudate, mucous membranes moist Chest: Minimal scattered wheezes, patient on room air with SPO2 >95% Cardiac: Regular rate and rhythm, no murmur, no JVD, normal peripheral pulses, good capillary refill Abdominal: NABS x 4 quadrants, soft, nontender to palpation, no rebound, gua rding or tenderness Extremities: Normal inspection, no peripheral edema or erythema, calfs nontender to palpation Psych: Normal mood and affect Neuro: AAO x 3, strength intact bilaterally and rated 5/5, no motor deficits, speech is clear, no peripheral sensory deficits Skin: no rash or erythema Results & Data Results & Data ([facility]) Vital Signs (Past 12 Hours) Vital Signs Temp Pulse Pulse Resp BP BP Pulse Ox 01/14/22 16:26 26 H 88 L 01/14/22 15:27 90 20 101/66 91 01/14/22 15:14 91 01/14/22 14:41 92 H 22 91 01/14/22 14:32 96 H 22 106/68 91 01/14/22 14:27 01/14/22 14:03 36.6 C 102 H 20 116/75 92 O2 Del Method 01/14/22 16:26 Room Air 01/14/22 15:27 Room Air 01/14/22 15:14 Room Air 01/14/22 14:41 Room Air 01/14/22 14:32 Room Air 01/14/22 14:27 Room Air 01/14/22 14:03 Room Air Laboratory Results Abnormal lab results 01/14/22 01/14/22 Range/Units 14:35 14:35 Hgb 10.7 L (12.0-16.0) g/dl MCHC 30.9 L (32.0-36.0) g/dL RDW Std Deviation 49.1 H (36.4-46.3) fL RDW Coeff of Giana 15.5 H (11.5-14.5) % Glucose 121 H (70-99(Fasting)) mg/dl Troponin I High Sens 15.1 H (0-14) pg/ml Diagnostic Findings Chest X-Ray 01/14/22 15:10 SINGLE VIEW CHEST CLINICAL HISTORY: COPD. Abnormal breath sounds. FINDINGS: An AP, portable, upright chest radiograph is compared to study dated 10/31/2020. The heart is enlarged. The pulmonary vasculature is noncongested. Chronic interstitial thickening is similar to previous. Scarring/atelectasis is noted at the lung bases. No airspace consolidation or large pleural effusion is identified. No pneumothorax is seen. The skeletal structures are osteopenic. The bony thorax is grossly intact. IMPRESSION: Cardiomegaly with no acute cardiopulmonary abnormality. ACT 112: Negative or not required by law. Electronically signed by: Jadiel Hyman M.D. 01/14/2022 3:35 PM ECG Additional Comments: Sinus rhythm with marked sinus arrhythmia with Premature ventricular complexes or Fusion complexes 1st degree AV block Nonspecific ST abnormality Abnormal ECG When compared with ECG of 31-OCT-2020 15:27, Fusion complexes are now Present Premature ventricular complexes are now Present NH interval has decreased. Code Status & VTE Plan Code Status Full code. Supervising Physician Co-Signing Physician Notes Patient seen and examined, chart reviewed, case discussed with Angelina Montoya PA-C and I agree with the assessment and plan as above except as otherwise noted 76-year-old female with a history of A. fib on anticoagulation, hypertension, COPD, hyperlipidemia, CKD who presents with acute on chronic shortness of breath mild tachycardia and desaturations while walking less than 88%. Hemoglobin is greater than 10, high-sensitivity troponin 15. Wheezy on ER assessment, consistent with acute on chronic COPD exacerbation. Agree with azithromycin, BID steroids --> pred taper, nebs as above. Continue inhaler/formulary equivalent. No concurrent MEE. No leukocytosis, CXR no acute abnormalities. Troponin with trace elevation consistent with mild demand, trended. Current tobacco use, counseling to quit provided pt reprots ramirez snot want a patch and feels she can quit cold turkey. Mild wheezing on exam, regular rhythm intermittently bradycardic. Agree with assessment and plan above PG Care Time/CCT Total # of Minutes Spent Total Time Spent with Patient: Total time spent is greater than 50% in coordination of care (as documented) at patient's floor/unit and/or counseling patient: Coding Level of Care Code 43672 Initial Inpt Care Lvl 2 Diagnoses Acute and chronic respiratory failure with hypoxia J96.21 Elevated troponin R77.8 COPD (chronic obstructive pulmonary disease) J44.9 CKD (chronic kidney disease) N18.9 Tobacco abuse Z72.0 Paroxysmal atrial fibrillation I48.0 Hypertension I10 Hyperlipidemia E78.5 Edema R60.9 Depression F32.9 Anemia D64.9
[2022-01-14] MEDS ORDERED: NON-FORMULARY MEDICATION (Fluticasone-Umeclidin-Vilanter [Trelegy Ellipta] 100-62.5-25 mcg INH SCH (21:24)
[2022-01-14] MEDS ORDERED: ONDANSETRON INJ 2 MG/ML 2 ML VIAL IV PRN (21:24)
[2022-01-14] MEDS ORDERED: POLYETHYLENE (MIRALAX) 17 GM PACK PO PRN (21:24)
[2022-01-14] MEDS ORDERED: ALBUT/IPRATROP 3MG/0.5MG NEB 3 ML VIAL INH SCH (21:24)
[2022-01-14] MEDS ORDERED: ACETAMINOPHEN 325 MG TAB PO PRN (21:24)
[2022-01-14] MEDS ORDERED: AZITHROMYCIN 250 MG TAB PO ONE (22:00)
[2022-01-14] MEDS: guaiFENesin 600 MG TABCR PO SCH (22:27)
[2022-01-14] MEDS: methylPREDNISolone 40 MG in SYRINGE 0 ML IV SCH (22:28)
[2022-01-14] MEDS: METOPROLOL TARTRATE 50 MG TAB PO SCH (22:28)
[2022-01-14] MEDS: APIXABAN 5 MG TABLET PO SCH (22:28)
[2022-01-14] MEDS: LORazepam 0.5 MG TAB PO SCH (22:30)
[2022-01-15] MEDS ORDERED: ALBUT/IPRATROP 3MG/0.5MG NEB 3 ML VIAL INH PRN (00:05)
[2022-01-15 06:40] LABS: Basophils # (auto) 0.01 K/uL (0-0.2); Basophils % (auto) 0.2 %; Hematocrit (blood only) 32.6 % (34.1-44.9); Hemoglobin 9.9 g/dl (12.0-16.0); Immature Granulocytes # (auto) 0.02 K/uL (0.00-0.02); Immature Granulocytes % (auto) 0.5 %; Lymphocytes # (auto) 1.04 K/uL (1.2-3.4); Lymphocytes % (auto) 25.4 %; Mean Corpuscular Hemoglobin 26.2 pg (25.0-34.0); Mean Corpuscular Hgb Conc 30.4 g/dL (32.0-36.0); Mean Corpuscular Volume 86.2 fL (80.0-100.0); Mean Platelet Volume 10.6 fL (9.4-12.3); Monocytes # (auto) 0.07 K/uL (0.24-0.82); Monocytes % (auto) 1.7 %; Neutrophils # (auto) 2.95 K/uL (1.4-6.5); Neutrophils % (auto) 72.2 %; Platelet Count 242 K/uL (130-400); RDW Coefficient of Variation 15.1 % (11.5-14.5); RDW Standard Deviation 48.3 fL (36.4-46.3); Red Blood Count 3.78 M/uL (3.93-5.22); White Blood Count 4.09 K/ul (4.8-10.8)
[2022-01-15 07:03] LABS: BUN Creatinine Ratio 18.6 (10-20); Calcium 8.7 mg/dl (8.5-10.1); Creatinine Clr Calc Pharmacy 50.5 ml/min; Est GFR (African American) 52.6 ml/min; Est GFR (Non-African American) 45.4 ml/min; Magnesium 2.2 mg/dl (1.7-2.4)
[2022-01-15 07:21] LABS: Ferritin 11.9 ng/ml (8-388)
[2022-01-15 07:27] LABS: Folate (Folic Acid) 19.41 ng/ml (>5.38)
[2022-01-15] MEDS: PARoxetine HCL 20 MG TAB PO SCH (08:57)
[2022-01-15] MEDS: ASCORBIC ACID 500 MG TAB PO SCH (08:57)
[2022-01-15] MEDS: CHOLECALCIFEROL 1,000 UNITS 25 MCG TAB PO SCH (08:57)
[2022-01-15] MEDS: methylPREDNISolone 40 MG in SYRINGE 0 ML IV SCH ×2 (08:57→19:28)
[2022-01-15] MEDS: METOPROLOL TARTRATE 50 MG TAB PO SCH ×2 (08:58→19:30)
[2022-01-15] MEDS: SPIRONOLACTONE 25 MG TAB PO SCH (08:58)
[2022-01-15] MEDS: FUROSEMIDE 40 MG TAB PO SCH (08:58)
[2022-01-15] MEDS: ATORVASTATIN 40 MG TAB PO SCH (08:58)
[2022-01-15] MEDS: APIXABAN 5 MG TABLET PO SCH ×2 (08:58→19:29)
[2022-01-15] MEDS: POTASSIUM CHLORIDE CRTAB 20 MEQ TABCR PO SCH (08:58)
[2022-01-15] MEDS: UMECLIDINIUM/VILANTEROL 62.5/25MCG 7 PUFFS/INHALER INH SCH (08:59)
[2022-01-15] MEDS: FLUTICASONE FUROATE 100MCG 14 PUFFS/INHALER INH SCH (08:59)
[2022-01-15] MEDS: guaiFENesin 600 MG TABCR PO SCH ×2 (08:59→19:29)
[2022-01-15] MEDS ORDERED: FLUTICASONE FUROATE 100MCG 14 PUFFS/INHALER INH SCH ×2 (09:00)
[2022-01-15] MEDS ORDERED: ZINC PICOLINATE PO SCH (09:00)
[2022-01-15] MEDS ORDERED: UMECLIDINIUM/VILANTEROL 62.5/25MCG 7 PUFFS/INHALER INH SCH ×2 (09:00)
--- NOTE | 2022-01-15 13:04 | Hospitalist Progress Note ---
Date of Service January 15, 2022 Assessment & Plan (1) Acute and chronic respiratory failure with hypoxia: Plan: - History of COPD with SPO2 88% on room air with ambulation. - Received albuterol, IV methylprednisolone, magnesium, IVF in ED. Minimal wheezing after treatments with SpO2 > 95% on RA at rest. -Still some wheeze on exam today - Continue home inhalers. - DuoNeb scheduled. - 40 IV SoluMedrol BID. - Azithromycin daily x 5 days. - Mucinex BID. (2) Elevated troponin: Plan: - 15.1 without EKG evidence to suggest ischemia or infarct. - Repeat troponin this evening, suspect demand 2/2 hypoxia. - Admitted to tele bed. (3) COPD (chronic obstructive pulmonary disease): Plan: - Manage exacerbation as above. (4) CKD (chronic kidney disease): Plan: - Creatinine 1.14, baseline per labs 1 year ago. - Renally dose medications as able, avoid nephrotoxins. - Renal function on a.m. BMP. (5) Tobacco abuse: Plan: - Continues to smoke 1/2 - 1 PPD. Counseled on the importance of quitting due to underlying COPD. - Offered nicotine patch however declines. Patient states she wants to quit cold turkey while she is here. (6) Paroxysmal atrial fibrillation: Plan: - Present with PVCs but no a fib here. - Continue metoprolol, Eliquis. (7) Hypertension: Plan: - Continue metoprolol 50 mg BID. (8) Hyperlipidemia: Plan: - Continue atorvastatin 40 mg daily. (9) Edema: Plan: - Continue Lasix and spironolactone. (10) Depression: Plan: - Continue Paxil 20 mg daily. (11) Anemia: Plan: - iron def anemia will give IV Iron infusion x 1 discharge on PO Iron supplements Plan - hopefully d/c tomorrow - SCDs, Eliquis for VTE ppx. - Full Code. Admission and Anticipated Discharge Date Admission Date: January 14, 2022 Subjective patient seen and examined, says sob is better, still some wheeze Review of Systems Review of Systems: All systems reviewed are negative, apart from the ones contained in the history. Physical Exam Physical Exam: The patient is awake, alert and oriented 3, well developed and well nourished, normocephalic and atraumatic, lying in bed and in no acute distress. HEENT--PERRL, EOMI, mucous membranes and oropharynx mildly dry Neck--supple. No JVD. No bruits. Thyroid normal, trachea midline, no adenopathy. Heart--normal S1 and S2. No murmurs, rubs or gallops. Lungs--some bibasilar wheeze Abdomen--normal bowel sounds and soft. Mild epigastric and left sided abdominal pain Extremities--no cyanosis or clubbing. No edema. Dermatologic--normal skin turgor, normal color, no abnormal lymph nodes, no rash. Neurologic--cranial nerves II through XII grossly intact. Rheumatologic--normal range of motion. Psychiatric--normal affect. Results & Data Results & Data ([facility]) Vital Signs (Past 12 Hours) Vital Signs Temp Pulse Pulse Resp BP Pulse Ox O2 Del Method 01/15/22 11:17 98.1 F 55 L 20 106/63 92 Room Air 01/15/22 08:50 Nasal Cannula 01/15/22 06:09 56 L 01/15/22 07:10 98.1 F 58 L 16 123/71 96 Nasal Cannula 01/15/22 03:21 97.9 F 54 L 16 127/77 94 Nasal Cannula O2 Flow Rate 01/15/22 11:17 01/15/22 08:50 2 01/15/22 06:09 01/15/22 07:10 2 01/15/22 03:21 2 PG Care Time/CCT Total # of Minutes Spent Total Time Spent with Patient: Total time spent is greater than 50% in coordination of care (as documented) at patient's floor/unit and/or counseling patient: Coding Level of Care Code 01670 Subseq Hosp Care Lvl 2 Diagnoses Acute and chronic respiratory failure with hypoxia J96.21 Elevated troponin R77.8 COPD (chronic obstructive pulmonary disease) J44.9 CKD (chronic kidney disease) N18.9 Tobacco abuse Z72.0 Paroxysmal atrial fibrillation I48.0 Hypertension I10 Hyperlipidemia E78.5 Edema R60.9 Depression F32.9 Anemia D64.9 Time Spent (min) 35
[2022-01-15] MEDS ORDERED: IRON SUCROSE 300 MG in SODIUM CHLORIDE 0.9% 250 ML IV ONE (14:00)
[2022-01-15] MEDS: AZITHROMYCIN 250 MG TAB PO SCH (19:30)
[2022-01-15] MEDS: LORazepam 0.5 MG TAB PO SCH (19:32)
[2022-01-16] MEDS: UMECLIDINIUM/VILANTEROL 62.5/25MCG 7 PUFFS/INHALER INH SCH (08:28)
[2022-01-16] MEDS: FLUTICASONE FUROATE 100MCG 14 PUFFS/INHALER INH SCH (08:28)
[2022-01-16] MEDS: methylPREDNISolone 40 MG in SYRINGE 0 ML IV SCH ×2 (08:28→20:33)
[2022-01-16] MEDS: FUROSEMIDE 40 MG TAB PO SCH (08:29)
[2022-01-16] MEDS: ATORVASTATIN 40 MG TAB PO SCH (08:29)
[2022-01-16] MEDS: POTASSIUM CHLORIDE CRTAB 20 MEQ TABCR PO SCH (08:29)
[2022-01-16] MEDS: guaiFENesin 600 MG TABCR PO SCH ×2 (08:29→20:32)
[2022-01-16] MEDS: APIXABAN 5 MG TABLET PO SCH ×2 (08:29→20:32)
[2022-01-16] MEDS: CHOLECALCIFEROL 1,000 UNITS 25 MCG TAB PO SCH (08:29)
[2022-01-16] MEDS: PARoxetine HCL 20 MG TAB PO SCH (08:29)
[2022-01-16] MEDS: METOPROLOL TARTRATE 50 MG TAB PO SCH ×2 (08:29→20:32)
[2022-01-16] MEDS: ASCORBIC ACID 500 MG TAB PO SCH (08:29)
[2022-01-16] MEDS: SPIRONOLACTONE 25 MG TAB PO SCH (08:30)
[2022-01-16] MEDS ORDERED: STAT IV Infusion **Titration per Protocol STA (08:46)
[2022-01-16] MEDS: dilTIAZem HCL 125 MG in DEXTROSE 5% 100 ML IV SCH (09:14)
--- NOTE | 2022-01-16 12:54 | Electrocardiogram Report ---
Test Reason : Blood Pressure : / mmHG Vent. Rate : 159 BPM Atrial Rate : 156 BPM P-R Int : 000 ms QRS Dur : 136 ms QT Int : 300 ms P-R-T Axes : 000 097 -27 degrees QTc Int : 488 ms Atrial fibrillation with rapid ventricular response Right bundle branch block Abnormal ECG When compared with ECG of 14-JAN-2022 14:15, Atrial fibrillation has replaced Sinus rhythm Vent. rate has increased BY 61 BPM Confirmed by Rj Eaton ([id number]) on 01/16/2022 12:53:57 PM Referred By: REFERRED SELF Confirmed By:Rj Eaton
--- NOTE | 2022-01-16 14:53 | Hospitalist Progress Note ---
Date of Service January 16, 2022 Assessment & Plan (1) Acute and chronic respiratory failure with hypoxia: Plan: - History of COPD with SPO2 88% on room air with ambulation. - Received albuterol, IV methylprednisolone, magnesium, IVF in ED. Minimal wheezing after treatments with SpO2 > 95% on RA at rest. -Still some wheeze on exam today - Continue home inhalers. - DuoNeb scheduled and PRN - 40 IV SoluMedrol BID. - Azithromycin daily x 5 days. - Mucinex BID. (2) Elevated troponin: Plan: - 15.1 without EKG evidence to suggest ischemia or infarct. - Repeat troponin this evening, suspect demand 2/2 hypoxia. - Admitted to tele bed. (3) COPD (chronic obstructive pulmonary disease): Plan: - Manage exacerbation as above. (4) CKD (chronic kidney disease): Plan: - Creatinine 1.14, baseline per labs 1 year ago. - Renally dose medications as able, avoid nephrotoxins. - Renal function on a.m. BMP. (5) Tobacco abuse: Plan: - Continues to smoke 1/2 - 1 PPD. Counseled on the importance of quitting due to underlying COPD. - Offered nicotine patch however declines. Patient states she wants to quit cold turkey while she is here. (6) Paroxysmal atrial fibrillation: Plan: - Present with PVCs but no a fib here. - Continue metoprolol, Eliquis. (7) Hypertension: Plan: - Continue metoprolol 50 mg BID. (8) Hyperlipidemia: Plan: - Continue atorvastatin 40 mg daily. (9) Edema: Plan: - Continue Lasix and spironolactone. (10) Depression: Plan: - Continue Paxil 20 mg daily. (11) Anemia: Plan: - iron def anemia will give IV Iron infusion x 1 discharge on PO Iron supplements Plan - hopefully d/c tomorrow - SCDs, Eliquis for VTE ppx. - Full Code. Admission and Anticipated Discharge Date Admission Date: January 14, 2022 Subjective patient seen and examined, says sob is better, still some wheeze Review of Systems Review of Systems: All systems reviewed are negative, apart from the ones contained in the history. Physical Exam Physical Exam: The patient is awake, alert and oriented 3, well developed and well nourished, normocephalic and atraumatic, lying in bed and in no acute distress. HEENT--PERRL, EOMI, mucous membranes and oropharynx mildly dry Neck--supple. No JVD. No bruits. Thyroid normal, trachea midline, no adenopathy. Heart--normal S1 and S2. No murmurs, rubs or gallops. Lungs--some bibasilar wheeze Abdomen--normal bowel sounds and soft. Mild epigastric and left sided abdominal pain Extremities--no cyanosis or clubbing. No edema. Dermatologic--normal skin turgor, normal color, no abnormal lymph nodes, no rash. Neurologic--cranial nerves II through XII grossly intact. Rheumatologic--normal range of motion. Psychiatric--normal affect. Results & Data Results & Data ([facility]) Vital Signs (Past 12 Hours) Vital Signs Temp Pulse Pulse Resp BP Pulse Ox O2 Del Method 01/16/22 13:30 85 107/70 92 Nasal Cannula 01/16/22 12:22 92 H 101/67 9 L Nasal Cannula 01/16/22 10:59 97.7 F 92 H 137/73 94 Nasal Cannula 01/16/22 10:40 88 22 96 Nasal Cannula 01/16/22 10:16 87 113/72 93 Nasal Cannula 01/16/22 09:48 88 135/84 95 Nasal Cannula 01/16/22 09:15 92 Nasal Cannula 01/16/22 09:07 165 H 113/77 88 L Nasal Cannula 01/16/22 06:10 54 L 01/16/22 08:00 97.7 F 74 16 132/74 96 Nasal Cannula 01/16/22 07:40 Room Air 01/16/22 03:00 97.9 F 59 L 18 140/70 90 Room Air O2 Flow Rate 01/16/22 13:30 2 01/16/22 12:22 2 01/16/22 10:59 2 01/16/22 10:40 2 01/16/22 10:16 2 01/16/22 09:48 2 01/16/22 09:15 2 01/16/22 09:07 2 01/16/22 06:10 01/16/22 08:00 2 01/16/22 07:40 01/16/22 03:00 PG Care Time/CCT Total # of Minutes Spent Total Time Spent with Patient: Total time spent is greater than 50% in coordination of care (as documented) at patient's floor/unit and/or counseling patient: Coding Level of Care Code 01162 Subseq Hosp Care Lvl 2 Diagnoses Acute and chronic respiratory failure with hypoxia J96.21 Elevated troponin R77.8 COPD (chronic obstructive pulmonary disease) J44.9 CKD (chronic kidney disease) N18.9 Tobacco abuse Z72.0 Paroxysmal atrial fibrillation I48.0 Hypertension I10 Hyperlipidemia E78.5 Edema R60.9 Depression F32.9 Anemia D64.9 Time Spent (min) 35
[2022-01-16] MEDS: ALBUT/IPRATROP 3MG/0.5MG NEB 3 ML VIAL NEB SCH ×3 (15:51→22:07)
[2022-01-16] MEDS: AZITHROMYCIN 250 MG TAB PO SCH (20:32)
[2022-01-16] MEDS: LORazepam 0.5 MG TAB PO SCH (22:16)
[2022-01-17] MEDS: ALBUT/IPRATROP 3MG/0.5MG NEB 3 ML VIAL NEB SCH ×6 (03:53→22:39)
[2022-01-17] MEDS: dilTIAZem HCL 125 MG in DEXTROSE 5% 100 ML IV SCH (06:28)
[2022-01-17] MEDS: APIXABAN 5 MG TABLET PO SCH ×2 (08:18→20:45)
[2022-01-17] MEDS: guaiFENesin 600 MG TABCR PO SCH ×2 (08:18→20:45)
[2022-01-17] MEDS: UMECLIDINIUM/VILANTEROL 62.5/25MCG 7 PUFFS/INHALER INH SCH (08:18)
[2022-01-17] MEDS: FLUTICASONE FUROATE 100MCG 14 PUFFS/INHALER INH SCH (08:18)
[2022-01-17] MEDS: methylPREDNISolone 40 MG in SYRINGE 0 ML IV SCH ×2 (08:18→20:45)
[2022-01-17] MEDS: ATORVASTATIN 40 MG TAB PO SCH (08:19)
[2022-01-17] MEDS: METOPROLOL TARTRATE 50 MG TAB PO SCH ×2 (08:19→20:46)
[2022-01-17] MEDS: POTASSIUM CHLORIDE CRTAB 20 MEQ TABCR PO SCH (08:19)
[2022-01-17] MEDS: CHOLECALCIFEROL 1,000 UNITS 25 MCG TAB PO SCH (08:19)
[2022-01-17] MEDS: FUROSEMIDE 40 MG TAB PO SCH (08:19)
[2022-01-17] MEDS: ASCORBIC ACID 500 MG TAB PO SCH (08:19)
[2022-01-17] MEDS: PARoxetine HCL 20 MG TAB PO SCH (08:19)
[2022-01-17] MEDS: SPIRONOLACTONE 25 MG TAB PO SCH (08:19)
--- NOTE | 2022-01-17 14:25 | Hospitalist Progress Note ---
Date of Service January 17, 2022 Assessment & Plan (1) Acute and chronic respiratory failure with hypoxia: Plan: - History of COPD with SPO2 88% on room air with ambulation. -Still some wheeze on exam today - Continue home inhalers. - DuoNeb scheduled and PRN - 40 IV SoluMedrol BID. - Azithromycin daily x 5 days. - Mucinex BID. (2) Paroxysmal atrial fibrillation: Plan: - Flipped into RVR -Currently on cardizem drip -On Metoprolol 50mg BID at home -Consult cardiology -Continue Eliquis. (3) Elevated troponin: Plan: - 15.1 without EKG evidence to suggest ischemia or infarct. - Repeat troponin this evening, suspect demand 2/2 hypoxia. - Admitted to tele bed. (4) COPD (chronic obstructive pulmonary disease): Plan: - Manage exacerbation as above. (5) CKD (chronic kidney disease): Plan: - Creatinine 1.14, baseline per labs 1 year ago. - Renally dose medications as able, avoid nephrotoxins. - Renal function on a.m. BMP. (6) Tobacco abuse: Plan: - Continues to smoke 1/2 - 1 PPD. Counseled on the importance of quitting due to underlying COPD. - Offered nicotine patch however declines. Patient states she wants to quit cold turkey while she is here. (7) Hypertension: Plan: - Continue metoprolol 50 mg BID. (8) Hyperlipidemia: Plan: - Continue atorvastatin 40 mg daily. (9) Edema: Plan: - Continue Lasix and spironolactone. (10) Depression: Plan: - Continue Paxil 20 mg daily. (11) Anemia: Plan: - iron def anemia will give IV Iron infusion x 1 discharge on PO Iron supplements Plan - hopefully d/c tomorrow - SCDs, Eliquis for VTE ppx. - Full Code. Admission and Anticipated Discharge Date Admission Date: January 14, 2022 Subjective patient seen and examined, says sob is better, still some wheeze Review of Systems Review of Systems: All systems reviewed are negative, apart from the ones contained in the history. Physical Exam Physical Exam: The patient is awake, alert and oriented 3, well developed and well nourished, normocephalic and atraumatic, lying in bed and in no acute distress. HEENT--PERRL, EOMI, mucous membranes and oropharynx mildly dry Neck--supple. No JVD. No bruits. Thyroid normal, trachea midline, no adenopathy. Heart--normal S1 and S2. No murmurs, rubs or gallops. Lungs--some bibasilar wheeze Abdomen--normal bowel sounds and soft. Mild epigastric and left sided abdominal pain Extremities--no cyanosis or clubbing. No edema. Dermatologic--normal skin turgor, normal color, no abnormal lymph nodes, no rash. Neurologic--cranial nerves II through XII grossly intact. Rheumatologic--normal range of motion. Psychiatric--normal affect. Results & Data Results & Data ([facility]) Vital Signs (Past 12 Hours) Vital Signs Temp Pulse Pulse Resp BP Pulse Ox O2 Del Method 01/17/22 11:19 67 18 90 Room Air 01/17/22 11:00 97.9 F 17 126/68 89 L Nasal Cannula 01/17/22 08:20 Nasal Cannula 01/17/22 06:10 67 01/17/22 07:20 77 16 93 Nasal Cannula 01/17/22 07:03 97.5 F L 94 H 18 97/57 L 97 Nasal Cannula 01/17/22 03:07 97.7 F 69 17 108/70 95 Nasal Cannula O2 Flow Rate 01/17/22 11:19 01/17/22 11:00 2 01/17/22 08:20 2 01/17/22 06:10 01/17/22 07:20 2 01/17/22 07:03 2 01/17/22 03:07 2 PG Care Time/CCT Total # of Minutes Spent Total Time Spent with Patient: Total time spent is greater than 50% in coordination of care (as documented) at patient's floor/unit and/or counseling patient: Coding Level of Care Code 30807 Subseq Hosp Care Lvl 2 Diagnoses Acute and chronic respiratory failure with hypoxia J96.21 Paroxysmal atrial fibrillation I48.0 Elevated troponin R77.8 COPD (chronic obstructive pulmonary disease) J44.9 CKD (chronic kidney disease) N18.9 Tobacco abuse Z72.0 Hypertension I10 Hyperlipidemia E78.5 Edema R60.9 Depression F32.9 Anemia D64.9 Time Spent (min) 35
--- NOTE | 2022-01-17 19:21 | Cardiology Consultation ---
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 Atrial flutter with rapid ventricular response: We discussed the diagnosis. She was symptomatic when very rapid heart rates but with rate better controlled, although still tachycardic, on diltiazem IV and oral metoprolol, she is now asymptomatic. Recommend cardioversion. She states that she is compliant with Eliquis without missing any doses for greater than 4 weeks. Recommend anesthesia consultation for sedation. Hopefully can perform cardioversion tomorrow. Also discussed other treatment strategies such as antiarrhythmic therapy or ablation. Continue anticoagulation for stroke risk reduction. 2. Paroxysmal atrial fibrillation: She appears to be in atrial flutter currently. Continue rate control strategy otherwise and also anticoagulation for stroke risk reduction. 3. Elevated troponin: Likely due to demand ischemia given her presentation. She has not had any angina. Repeat high sensitivity troponin to ensure that she has peaked. 4. 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 Continue beta-nancie. Avoid dehydration. Will try to restore sinus rhythm as above. 5. Tobacco abuse: Recommended that she stop smoking. 6. Hypertension: Blood pressure reasonably controlled. No changes at this time. 7. Acute on chronic respiratory failure with hypoxia: She has been treated with inhalers, antibiotics, and methylprednisolone. As per primary service. She does not appear to be hypervolemic. 8. Disposition: Cardiology will continue to follow. NPO after midnight except for medications. Risks and benefits of cardioversion were discussed with her and she was agreeable to undergo the procedure. Cardioversion likely tomorrow. Patient care communicated with primary hospitalist, Dr. Conte. Highly complex medical issues. Thank you for allowing me to participate in the care of your patient. Please call for any other questions or concerns. Sincerely, Dwain Razo M.D. History of Present Illness Reason for Consultation: "afib with rvr" Requesting Physician: Cammie Conte MD Attending Physician: Cammie Conte MD History of Present Illness Mrs. Rose is a very pleasant 76 year old female with history significant for paroxysmal atrial fibrillation, acute blood loss anemia from GI bleed, hypertension, dyslipidemia, COPD, and sleep apnea on CPAP q.h.s.. She was admitted on 01/14/2022 with acute on chronic respiratory failure with hypoxia and was treated for COPD exacerbation. Cardiology was consulted due to concern for atrial fibrillation with rapid ventricular response that developed during the hospital stay. On telemetry, it was noted that she developed atrial flutter with rapid ventricular response on 01/16/2022 at 8:37 a.m.. She recalls feeling palpitations during the morning of 01/16/2022, which appears to correlate with the development of atrial flutter with rapid ventricular response. Presenting ECG on 01/14/2022 at 2:15 p.m. appears to be possible atrial flutter versus atrial tachycardia with variable AV block. Repeat ECG on 01/16/2022 at 9:04 a.m. demonstrated what appeared to be AFib with RVR at 159 beats per minute. She was placed on a diltiazem drip and her heart rates have improved but remained elevated. She has not felt palpitations with improved heart rate. Her heart rate during today's visit was steadily 113-116 beats per minute on telemetry. She states that she has been completely compliant with Eliquis, without missing any dose for at least 4 weeks and she has received it on a regular basis while hospitalized. She denies melena, hematochezia, hematuria, or other bleeding. Her initial shortness of breath is now back to baseline. She has dyspnea with exertion described as mild but chronic and stable when she walked the hallway today. She denies chest pain, syncope, near-syncope, or edema. She has had the following studies/procedures: 1. Echo 09/22/2020 [facility]: Hyperdynamic LV systolic function. EF > 70%. No regional wall motion abnormalities. Significant LVOT flow turbulence likely secondary to hyperdynamic LV function. Mildly dilated RV with mildly reduced systolic function. Mild TR. 2. Event monitor 11/26/2020 to 12/25/2020: Sinus rhythm. PACs and PVCs. No arrhythmia. 3. Echo 05/28/2021 [facility]: Normal LV size. EF > 70%. Normal wall motion. Moderate LVH. Severe left atrial dilation. Sclerotic aortic valve. Severe MAC. Systolic anterior motion mitral leaflet with LVOT obstruction (PVD 3.8 with peak gradient 57). Mildly elevated transvalvular mitral gradient (5.4). Review of systems: As above. Family history:No known premature CAD. Social history: Smoking approximately 1 pack per day and has smoked for several years (> 30 pack years). No significant alcohol or drug abuse. Lives at home with her . She has 4 children, 3 daughters and 1 son. Two daughters are nurses. Vanesa Marrero (daughter) is a nurse at [employer]. Her , Alpesh, was present at the bedside. At the end of today's visit, her daughter, Vanesa, presented to the bedside. Allergies Allergy/AdvReac Type Severity Reaction Status Date / Time No Known Allergies Allergy Verified 01/14/22 17:31 Home Medications Medication Instructions Recorded Confirmed Type ascorbic acid (vitamin C) 500 mg 500 mg PO QAM 03/02/18 01/14/22 History tablet (Vitamin C) atorvastatin 40 mg tablet 40 mg PO QAM 03/02/18 01/14/22 History lorazepam 0.5 mg tablet (Ativan) 0.5 mg PO HS 03/02/18 01/14/22 History omega 0-gcc-loc-fish oil 1,000 mg 1 tab PO QAM 03/02/18 01/14/22 History (120 mg-180 mg) capsule (Fish Oil) paroxetine HCl 20 mg tablet 20 mg PO QAM 03/02/18 01/14/22 History potassium chloride 20 mEq 20 meq PO QAM 03/02/18 01/14/22 History tablet,extended release(part/cryst) (Klor-Con M) vitamin E 268 mg (400 unit) capsule 400 unit PO QAM 03/02/18 01/14/22 History cholecalciferol (vitamin D3) 25 1,000 unit PO QAM 11/26/18 01/14/22 History mcg (1,000 unit) capsule (Vitamin D3) fluticasone fur. 100 mcg-umeclid 1 inh inhalation BID 10/31/20 01/14/22 History 62.5 mcg-vilant 25 mcg inhalat.powder (Trelegy Ellipta) furosemide 40 mg tablet 40 mg PO QAM 10/31/20 01/14/22 History spironolactone 25 mg tablet 25 mg PO QAM 10/31/20 01/14/22 History apixaban 5 mg tablet (Eliquis) 5 mg PO BID #180 tabs 08/09/21 01/14/22 Rx metoprolol tartrate 50 mg tablet 50 mg PO BID #180 tabs 08/09/21 01/14/22 Rx albuterol sulfate 90 mcg/actuation 2 puff inhalation QID PRN 01/14/22 01/14/22 History aerosol inhaler (Ventolin HFA) Shortness Of Breath Or Wheezing zinc picolinate 25 mg capsule 0 mg PO DAILY 01/14/22 01/14/22 History Patient History Medical History Anxiety Bulging disc Chronic obstructive pulmonary disease COPD (chronic obstructive pulmonary disease) Depression Edema GERD (gastroesophageal reflux disease) GIB (gastrointestinal bleeding) Hearing deficit Hyperlipidemia Hypertension Left ventricular outflow tract obstruction Osteoarthritis Paroxysmal atrial fibrillation Sleep apnea Systolic anterior movement of mitral valve Surgical History History of cholecystectomy History of colonoscopy History of surgery Rt eye keratectomy History of tonsillectomy and adenoidectomy History of tooth extraction ALL ON TOP, MOST ON BOTTOM History of total abdominal hysterectomy and bilateral salpingo-oophorectomy Family History (Updated 01/14/22 @ 18:25 by Angelina Montoya PA-C) Other Family history non-contributory Social History Smoking Status: Former smoker Tobacco Type: Cigarettes Cigarettes Per Day: 1-2 A DAY FOR 50 YRS; Second Hand Exposure: No; Do You Dip or Chew Tobacco: No; Tobacco Cessation Education Requested by Patient: No Hx Alcohol Use: No Hx Substance Use: No Preferred Language: Danish 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: Effective 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 Alert and oriented. HEENT: Anicteric sclera. Neck: No appreciable JVD. No bruits. Normal carotid upstrokes bilaterally. Cardiac: PMI was nonpalpable. No ventricular heave. Mostly regular and tachy cardic. Normal S1-S2. 1/6 systolic murmur. No rubs, or gallops. Pulmonary: Decreased breath sounds at the right base, but otherwise clear to auscultation bilaterally without wheezes, rales, or rhonchi. Abdomen: Soft, nontender, nondistended, with normoactive bowel sounds. No bruits noted. Extremities: 2+ radial pulses bilaterally. 2+ posterior tibialis pulses bilaterally. Trace bilateral lower extremity edema. No cyanosis. Psychiatric: Affect appears appropriate. Results & Data ([facility]) Vital Signs (Past 12 Hours) Vital Signs Temp Pulse Resp BP Pulse Ox O2 Del Method O2 Flow Rate 01/17/22 15:45 36.8 C 105 H 17 118/66 89 L Nasal Cannula 2 01/17/22 14:40 87 20 89 L Room Air 01/17/22 11:19 67 18 90 Room Air 01/17/22 11:00 36.6 C 17 126/68 89 L Nasal Cannula 2 01/17/22 08:20 Nasal Cannula 2 01/17/22 07:20 77 16 93 Nasal Cannula 2 01/17/22 07:03 36.4 C L 94 H 18 97/57 L 97 Nasal Cannula 2 Laboratory Results Laboratory Results - last 72 hr 01/14/22 01/15/22 01/15/22 19:12 06:05 06:05 WBC 4.09 L RBC 3.78 L Hgb 9.9 L Hct 32.6 L MCV 86.2 MCH 26.2 MCHC 30.4 L RDW Std Deviation 48.3 H RDW Coeff of Giana 15.1 H Plt Count 242 MPV 10.6 Immature Gran % (Auto) 0.5 Neut % (Auto) 72.2 Lymph % (Auto) 25.4 Craven % (Auto) 1.7 Eos % (Auto) 0.0 Baso % (Auto) 0.2 Neut # (Auto) 2.95 Lymph # (Auto) 1.04 L Craven # (Auto) 0.07 L Eos # (Auto) 0.00 Baso # (Auto) 0.01 Immature Gran # (Auto) 0.02 Sodium 141 Potassium 4.0 Chloride 104 Carbon Dioxide 29 Anion Gap 8 BUN 22 Creatinine 1.18 Est Cr Clr Drug Dosing 50.5 Est GFR ( Amer) 52.6 Est GFR (Non-Af Amer) 45.4 BUN/Creatinine Ratio 18.6 Glucose 140 H Calcium 8.7 Magnesium 2.2 Iron 25 L TIBC 414 Unsaturated IBC 389 H Transferrin % Sat 6 L Ferritin 11.9 Troponin I High Sens 19.5 H D Vitamin B12 Folate 01/15/22 01/15/22 06:05 06:05 WBC RBC Hgb Hct MCV MCH MCHC RDW Std Deviation RDW Coeff of Giana Plt Count MPV Immature Gran % (Auto) Neut % (Auto) Lymph % (Auto) Craven % (Auto) Eos % (Auto) Baso % (Auto) Neut # (Auto) Lymph # (Auto) Craven # (Auto) Eos # (Auto) Baso # (Auto) Immature Gran # (Auto) Sodium Potassium Chloride Carbon Dioxide Anion Gap BUN Creatinine Est Cr Clr Drug Dosing Est GFR ( Amer) Est GFR (Non-Af Amer) BUN/Creatinine Ratio Glucose Calcium Magnesium Iron Cancelled TIBC Cancelled Unsaturated IBC Cancelled Transferrin % Sat Cancelled Ferritin Troponin I High Sens Vitamin B12 204 Folate 19.41 Diagnostic Findings Telemetry personally reviewed as noted above in HPI. ECGs personally reviewed as noted above in HPI. Echo from 05/28/2021 report reviewed as noted above in HPI. Chest x-ray 01/14/2022: Cardiomegaly. No acute cardiopulmonary process per Radiology. Medications Administered Current Inpatient Medications Acetaminophen (Acetaminophen 325 Mg Tab) 650 mg PO Q4H PRN PRN Reason: Pain or Fever Stop: 02/13/22 21:23 Albuterol (Albut/Ipratrop 3mg/0.5mg Neb 3 Ml Vial) 3 ml INH Q6R PRN PRN Reason: Wheezing Stop: 02/13/22 21:23 Last Admin: 01/16/22 10:39 Dose: 3 ml Albuterol (Albut/Ipratrop 3mg/0.5mg Neb 3 Ml Vial) 3 ml NEB Q4R [facility]; Protocol Stop: 02/15/22 14:59 Last Admin: 01/17/22 14:40 Dose: 3 ml Apixaban (Apixaban 5 Mg Tablet) 5 mg PO BID [facility] Stop: 02/13/22 21:59 Last Admin: 01/17/22 08:18 Dose: 5 mg Ascorbic Acid (Ascorbic Acid 500 Mg Tab) 500 mg PO QAM [facility] Stop: 02/14/22 08:59 Last Admin: 01/17/22 08:19 Dose: 500 mg Atorvastatin Calcium (Atorvastatin 40 Mg Tab) 40 mg PO QAM [facility] Stop: 02/14/22 08:59 Last Admin: 01/17/22 08:19 Dose: 40 mg Azithromycin (Azithromycin 250 Mg Tab) 250 mg PO [facility] Stop: 01/18/22 21:01 Last Admin: 01/16/22 20:32 Dose: 250 mg Fluticasone Furoate (Fluticasone Furoate 100mcg 14 Puffs/Inhaler) 1 puffs INH DAILY [facility] Stop: 02/14/22 08:59 Last Admin: 01/17/22 08:18 Dose: 1 puffs Furosemide (Furosemide 40 Mg Tab) 40 mg PO QAM [facility] Stop: 02/14/22 08:59 Last Admin: 01/17/22 08:19 Dose: 40 mg Guaifenesin (Guaifenesin 600 Mg Tabcr) 1,200 mg PO BID [facility] Stop: 02/13/22 21:59 Last Admin: 01/17/22 08:18 Dose: 1,200 mg Methylprednisolone 40 mg/ (Syringe) 0.64 mls @ 1.5 mls/min IV BID [facility] Stop: 02/13/22 21:59 Last Admin: 01/17/22 08:18 Dose: 1.5 mls/min Diltiazem HCl 125 mg/ Dextrose 125 mls @ 5 mls/hr IV .Q24H [facility]; Protocol Stop: 02/15/22 08:59 Last Titration: 01/17/22 06:56 Dose: 5 mg/hr, 5 mls/hr Lorazepam (Lorazepam 0.5 Mg Tab) 0.5 mg PO [facility] Stop: 02/13/22 21:44 Last Admin: 01/16/22 22:16 Dose: 0.5 mg Metoprolol Tartrate (Metoprolol Tartrate 50 Mg Tab) 50 mg PO BID [facility] Stop: 02/13/22 21:59 Last Admin: 01/17/22 08:19 Dose: 50 mg Ondansetron HCl (Ondansetron Inj 2 Mg/Ml 2 Ml Vial) 4 mg IV Q6H PRN PRN Reason: Nausea Stop: 02/13/22 21:23 Paroxetine HCl (Paroxetine Hcl 20 Mg Tab) 20 mg PO QAM [facility] Stop: 02/14/22 08:59 Last Admin: 01/17/22 08:19 Dose: 20 mg Polyethylene Glycol (Polyethylene (Miralax) 17 Gm Pack) 17 gm PO DAILY PRN PRN Reason: Constipation Stop: 02/13/22 21:23 Potassium Chloride (Potassium Chloride Crtab 20 Meq Tabcr) 20 meq PO QAM [facility] Stop: 02/14/22 08:59 Last Admin: 01/17/22 08:19 Dose: 20 meq Spironolactone (Spironolactone 25 Mg Tab) 25 mg PO QAM [facility] Stop: 02/14/22 08:59 Last Admin: 01/17/22 08:19 Dose: 25 mg Umeclidinium/Vilanterol (Umeclidinium/Vilanterol 62.5/25mcg 7 Puffs/Inhaler) 1 puffs INH DAILY [facility] Stop: 02/14/22 08:59 Last Admin: 01/17/22 08:18 Dose: 1 puffs Vitamin D (Cholecalciferol 1,000 Units 25 Mcg Tab) 1,000 units PO QAM [facility] Stop: 02/14/22 08:59 Last Admin: 01/17/22 08:19 Dose: 1,000 units PG Care Time/CCT Total # of Minutes Spent Total Time Spent with Patient: Total time spent is greater than 50% in coordination of care (as documented) at patient's floor/unit and/or counseling patient: Coding Level of Care Code 78123 Initial Inpt Care Lvl 3 Diagnoses Atrial flutter I48.92 Paroxysmal atrial fibrillation I48.0 Hypertension I10 Systolic anterior movement of mitral valve I34.8 Left ventricular outflow tract obstruction Q24.8 Elevated troponin R77.8 Tobacco abuse Z72.0 Acute and chronic respiratory failure with hypoxia J96.21
[2022-01-17 20:04] LABS: BUN Creatinine Ratio 27.5 (10-20); Calcium 8.8 mg/dl (8.5-10.1); Creatinine Clr Calc Pharmacy 38.9 ml/min; Est GFR (African American) 38.4 ml/min; Est GFR (Non-African American) 33.2 ml/min
[2022-01-17 20:11] LABS: Troponin I High Sensitivity 49.4 pg/ml (0-14)
[2022-01-17] MEDS: LORazepam 0.5 MG TAB PO SCH (20:44)
[2022-01-17] MEDS: AZITHROMYCIN 250 MG TAB PO SCH (20:45)
[2022-01-18] MEDS: ALBUT/IPRATROP 3MG/0.5MG NEB 3 ML VIAL NEB SCH ×4 (03:52→14:36)
[2022-01-18] MEDS: METOPROLOL TARTRATE 50 MG TAB PO SCH (09:33)
[2022-01-18] MEDS: FUROSEMIDE 40 MG TAB PO SCH (09:34)
[2022-01-18] MEDS: ASCORBIC ACID 500 MG TAB PO SCH (09:34)
[2022-01-18] MEDS: guaiFENesin 600 MG TABCR PO SCH (09:34)
[2022-01-18] MEDS: POTASSIUM CHLORIDE CRTAB 20 MEQ TABCR PO SCH (09:34)
[2022-01-18] MEDS: ATORVASTATIN 40 MG TAB PO SCH (09:34)
[2022-01-18] MEDS: CHOLECALCIFEROL 1,000 UNITS 25 MCG TAB PO SCH (09:34)
[2022-01-18] MEDS: APIXABAN 5 MG TABLET PO SCH (09:34)
[2022-01-18] MEDS: SPIRONOLACTONE 25 MG TAB PO SCH (09:34)
[2022-01-18] MEDS: PARoxetine HCL 20 MG TAB PO SCH (09:34)
[2022-01-18] MEDS: methylPREDNISolone 40 MG in SYRINGE 0 ML IV SCH (09:34)
[2022-01-18] MEDS: UMECLIDINIUM/VILANTEROL 62.5/25MCG 7 PUFFS/INHALER INH SCH (09:35)
[2022-01-18] MEDS: FLUTICASONE FUROATE 100MCG 14 PUFFS/INHALER INH SCH (09:35)
--- NOTE | 2022-01-18 11:54 | Cardiology Progress Note ---
Date of Service January 18, 2022 Assessment & Plan (1) Atrial flutter: (2) Paroxysmal atrial fibrillation: (3) Hypertension: (4) Systolic anterior movement of mitral valve: (5) Left ventricular outflow tract obstruction: (6) Elevated troponin: (7) Tobacco abuse: (8) Acute and chronic respiratory failure with hypoxia: Plan ASSESSMENT/PLAN: 1. Atrial flutter with rapid ventricular response: She spontaneously converted on 01/17/2022. She has remained in sinus rhythm since then. She was symptomatic when very rapid heart rates but asymptomatic with improved heart rate on rate-controlling medications. If atrial flutter returns, would consider ablation. If found to have recurrent AFib and flutter, would consider anti arrhythmic therapy. Have requested a 4 week outpatient monitor through the cardiology office. Continue anticoagulation for stroke risk reduction. Con tinue beta-nancie for now for rate control strategy. 2. Paroxysmal atrial fibrillation: Noted to be in atrial flutter during this hospital stay. Continue rate control strategy otherwise and also a nticoagulation for stroke risk reduction. 3. Elevated troponin: Likely due to demand ischemia given her presentation. She has not had any angina. 4. 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 Continue beta-nancie. Avoid dehydration. Will try to restore sinus rhythm as above. 5. Tobacco abuse: Stop smoking. 6. Hypertension: Although her last blood pressure was elevated, she had mostly been normotensive. No changes recommended. 7. Acute on chronic respiratory failure with hypoxia: She has been treated with inhalers, antibiotics, and methylprednisolone. As per primary service. She does not appear to be hypervolemic. 8. Disposition: No further inpatient cardiology care necessary at this time. Can be discharged home from a cardiac perspective. Patient care communicated with primary hospitalist, Dr. Conte. She has a scheduled appointment with Cardiology later this month and should keep that appointment. Admission and Anticipated Discharge Date Admission Date: January 14, 2022 Subjective Patient was seen earlier today. She spontaneously converted to sinus rhythm on 01/17/2022 at 9:24 p.m.. She has not had any further arrhythmia at the time of today's visit. She states that overall she felt better. She denies chest pain, shortness of breath, syncope, near-syncope, palpitations. She was alone in her hospital room. Physical Exam Physical Exam: Gen.: No acute distress. Alert and oriented. HEENT: Anicteric sclera. Neck: No appreciable JVD. Cardiac: No ventricular heave. Regular in the 50s. Normal S1-S2. 2/6 systolic murmur. No rubs or gallops. Pulmonary: Clear to auscultation bilaterally without wheezes, rales, or rhonchi. Abdomen: Soft, nontender, nondistended, with normoactive bowel sounds. No bruits noted. Extremities: 2+ radial pulses bilaterally. 2+ posterior tibialis pulses bilaterally. Trace bilateral lower extremity edema. No cyanosis. Psychiatric: Affect appears appropriate. Results & Data ([facility]) Vital Signs (Past 12 Hours) Vital Signs Temp Pulse Resp BP Pulse Ox O2 Del Method O2 Flow Rate 01/18/22 11:46 36.5 C 55 L 22 168/76 H 90 Room Air 01/18/22 08:00 Nasal Cannula 2 01/18/22 10:35 55 L 18 93 Nasal Cannula 2 01/18/22 09:37 70 136/79 01/18/22 07:58 36.4 C L 56 L 24 119/75 92 Nasal Cannula 2 01/18/22 07:19 50 L 18 90 Nasal Cannula 2 01/18/22 03:21 36.8 C 59 L 16 123/72 94 Nasal Cannula 2 Laboratory Results Laboratory Results - last 24 hr 01/17/22 19:24 Sodium 138 Potassium 4.0 Chloride 103 Carbon Dioxide 27 Anion Gap 8 BUN 42 H Creatinine 1.53 H Est Cr Clr Drug Dosing 38.9 Est GFR ( Amer) 38.4 Est GFR (Non-Af Amer) 33.2 BUN/Creatinine Ratio 27.5 H Glucose 175 H Calcium 8.8 Troponin I High Sens 49.4 H D Diagnostic Findings Telemetry personally reviewed as noted above in subjective. She remained in sinus rhythm after converting from atrial flutter on 01/17/2022 at 9:24 p.m.. ECG personally reviewed 01/18/2022 at 9:07 a.m.: Sinus rhythm with PACs at 65 beats per minute. Medications Administered Current Inpatient Medications Acetaminophen (Acetaminophen 325 Mg Tab) 650 mg PO Q4H PRN PRN Reason: Pain or Fever Stop: 02/13/22 21:23 Albuterol (Albut/Ipratrop 3mg/0.5mg Neb 3 Ml Vial) 3 ml INH Q6R PRN PRN Reason: Wheezing Stop: 02/13/22 21:23 Last Admin: 01/16/22 10:39 Dose: 3 ml Albuterol (Albut/Ipratrop 3mg/0.5mg Neb 3 Ml Vial) 3 ml NEB Q4R [facility]; Protocol Stop: 02/15/22 14:59 Last Admin: 01/18/22 10:35 Dose: 3 ml Apixaban (Apixaban 5 Mg Tablet) 5 mg PO BID [facility] Stop: 02/13/22 21:59 Last Admin: 01/18/22 09:34 Dose: 5 mg Ascorbic Acid (Ascorbic Acid 500 Mg Tab) 500 mg PO QAM [facility] Stop: 02/14/22 08:59 Last Admin: 01/18/22 09:34 Dose: 500 mg Atorvastatin Calcium (Atorvastatin 40 Mg Tab) 40 mg PO QAM [facility] Stop: 02/14/22 08:59 Last Admin: 01/18/22 09:34 Dose: 40 mg Azithromycin (Azithromycin 250 Mg Tab) 250 mg PO HS [facility] Stop: 01/18/22 21:01 Last Admin: 01/17/22 20:45 Dose: 250 mg Fluticasone Furoate (Fluticasone Furoate 100mcg 14 Puffs/Inhaler) 1 puffs INH DAILY [facility] Stop: 02/14/22 08:59 Last Admin: 01/18/22 09:35 Dose: 1 puffs Furosemide (Furosemide 40 Mg Tab) 40 mg PO QAM [facility] Stop: 02/14/22 08:59 Last Admin: 01/18/22 09:34 Dose: 40 mg Guaifenesin (Guaifenesin 600 Mg Tabcr) 1,200 mg PO BID [facility] Stop: 02/13/22 21:59 Last Admin: 01/18/22 09:34 Dose: 1,200 mg Methylprednisolone 40 mg/ (Syringe) 0.64 mls @ 1.5 mls/min IV BID [facility] Stop: 02/13/22 21:59 Last Admin: 01/18/22 09:34 Dose: 1.5 mls/min Diltiazem HCl 125 mg/ Dextrose 125 mls @ 0 mls/hr IV .Q0M [facility]; Protocol Stop: 02/15/22 08:59 Last Titration: 01/17/22 23:30 Dose: 0 mg/hr, 0 mls/hr Lorazepam (Lorazepam 0.5 Mg Tab) 0.5 mg PO HS [facility] Stop: 02/13/22 21:44 Last Admin: 01/17/22 20:44 Dose: 0.5 mg Metoprolol Tartrate (Metoprolol Tartrate 50 Mg Tab) 50 mg PO BID [facility] Stop: 02/13/22 21:59 Last Admin: 01/18/22 09:33 Dose: 50 mg Ondansetron HCl (Ondansetron Inj 2 Mg/Ml 2 Ml Vial) 4 mg IV Q6H PRN PRN Reason: Nausea Stop: 02/13/22 21:23 Paroxetine HCl ([facility] Hcl 20 Mg Tab) [facility] Stop: 02/14/22 08:59 Last Admin: 01/18/22 09:34 Dose: 20 mg Polyethylene Glycol (Polyethylene (Miralax) 17 Gm Pack) 17 gm PO DAILY PRN PRN Reason: Constipation Stop: 02/13/22 21:23 Potassium Chloride (Potassium Chloride Crtab 20 Meq Tabcr) 20 meq PO QAM [facility] Stop: 02/14/22 08:59 Last Admin: 01/18/22 09:34 Dose: 20 meq Spironolactone (Spironolactone 25 Mg Tab) 25 mg PO QAM [facility] Stop: 02/14/22 08:59 Last Admin: 01/18/22 09:34 Dose: 25 mg Umeclidinium/Vilanterol (Umeclidinium/Vilanterol 62.5/25mcg 7 Puffs/Inhaler) 1 puffs INH DAILY [facility] Stop: 02/14/22 08:59 Last Admin: 01/18/22 09:35 Dose: 1 puffs Vitamin D (Cholecalciferol 1,000 Units 25 Mcg Tab) 1,000 units PO QAM [facility] Stop: 02/14/22 08:59 Last Admin: 01/18/22 09:34 Dose: 1,000 units PG Care Time/CCT Total # of Minutes Spent Total Time Spent with Patient: Total time spent is greater than 50% in coordination of care (as documented) at patient's floor/unit and/or counseling patient: Coding Level of Care Code 98738 Subseq Hosp Care Lvl 3 Diagnoses Atrial flutter I48.92 Paroxysmal atrial fibrillation I48.0 Hypertension I10 Systolic anterior movement of mitral valve I34.8 Left ventricular outflow tract obstruction Q24.8 Elevated troponin R77.8 Tobacco abuse Z72.0 Acute and chronic respiratory failure with hypoxia J96.21
--- NOTE | 2022-01-18 14:06 | Discharge Summary ---
Date of Service January 18, 2022 Admission HPI Per Admitting Provider Nella Rose is a 76-year-old female with past medical history of A. fib on anticoagulation, hypertension, hyperlipidemia, COPD, depression, CKD who presents today with complaints of palpitation. She woke up this morning feeling well, however shortly after she started her day, noticed her heart racing which she thought was her A. fib. She initially was not short of breath, however noticed when she was getting up to do things around her home that she had little more difficulty breathing than usual. She otherwise feels well, has not been sick lately, no fever or chills, increasing cough or sputum production, chest pain. She does continue to smoke half to a pack of cigarettes per day, and has been using her inhalers as prescribed. She has no sick contacts at home, has not had any recent travel. In ED, she is slightly tachycardic, highest HR 102, 26 RR, oxygen saturation in low 90s, but down to 88% on walk test in ED, normotensive. Labs significant for Hgb 10.7, initial hs Trop 15.1, although up with normal limits. Renal function at baseline, no electrolyte abnormalities. CXR showed cardiomegaly without acute cardiopulmonary abnormality. ED course: 500 cc NS, 60 mg IV methylprednisolone, albuterol, magnesium. Principal Diagnosis copd exacerbation, afib Discharge Exam The patient is awake, alert and oriented 3, well developed and well nourished, normocephalic and atraumatic, lying in bed and in no acute distress. HEENT--PERRL, EOMI, mucous membranes and oropharynx mildly dry Neck--supple. No JVD. No bruits. Thyroid normal, trachea midline, no adenopathy. Heart--normal S1 and S2. No murmurs, rubs or gallops. Lungs--some bibasilar wheeze Abdomen--normal bowel sounds and soft. Mild epigastric and left sided abdominal pain Extremities--no cyanosis or clubbing. No edema. Dermatologic--normal skin turgor, normal color, no abnormal lymph nodes, no rash. Neurologic--cranial nerves II through XII grossly intact. Rheumatologic--normal range of motion. Psychiatric--normal affect. Discharge Data Allergies Allergy/AdvReac Type Severity Reaction Status Date / Time No Known Allergies Allergy Verified 01/14/22 17:31 Consultations 01/14/22 16:57 ED Decision to Admit Stat 01/17/22 11:16 Consult Cardiology Routine 01/17/22 19:14 Consult Anesthesiology Routine Hospital Course (1) Acute and chronic respiratory failure with hypoxia: - History of COPD with SPO2 88% on room air with ambulation. -Still some wheeze on exam today - Continue home inhalers. - DuoNeb scheduled and PRN - 40 IV SoluMedrol BID. - Azithromycin daily x 5 days. - Mucinex BID. -Discharge home (2) Paroxysmal atrial fibrillation: - Flipped into RVR, was on cardizem drip. spontaneously coverted back. plans for cardioversion suspended -On Metoprolol 50mg BID at home -Consult cardiology -Continue Eliquis. (3) Elevated troponin: - 15.1 without EKG evidence to suggest ischemia or infarct. - Repeat troponin this evening, suspect demand 2/2 hypoxia. - Admitted to tele bed. (4) COPD (chronic obstructive pulmonary disease): - Manage exacerbation as above. (5) CKD (chronic kidney disease): - Creatinine 1.14, baseline per labs 1 year ago. - Renally dose medications as able, avoid nephrotoxins. - Renal function on a.m. BMP. (6) Tobacco abuse: - Continues to smoke 1/2 - 1 PPD. Counseled on the importance of quitting due to underlying COPD. - Offered nicotine patch however declines. Patient states she wants to quit cold turkey while she is here. (7) Hypertension: - Continue metoprolol 50 mg BID. (8) Hyperlipidemia: - Continue atorvastatin 40 mg daily. (9) Edema: - Continue Lasix and spironolactone. (10) Depression: - Continue Paxil 20 mg daily. (11) Anemia: - iron def anemia will give IV Iron infusion x 1 discharge on PO Iron supplements Plan - hopefully d/c tomorrow - SCDs, Eliquis for VTE ppx. - Full Code. 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 Pending Studies at Discharge: No Stand-Alone Forms: My [facility], Smoking Cessation Medications and DC Order Prescriptions: New ipratropium-albuterol 0.5 mg-3 mg(2.5 mg base)/3 mL Solution For Nebulization 3 ml inhalation Q6R PRN (Reason: shortness of breath or wheezing) 30 Days Qty: 30 0RF Continued Eliquis 5 mg tablet 5 mg PO BID Qty: 180 3RF metoprolol tartrate 50 mg tablet 50 mg PO BID Qty: 180 3RF cholecalciferol (vitamin D3) [Vitamin D3] 1,000 unit Capsule 1,000 unit PO QAM atorvastatin 40 mg Tablet 40 mg PO QAM potassium chloride [Klor-Con M20] 20 mEq Tablet,Er Particles/Crystals 20 meq PO QAM Label Comments: lorazepam [Ativan] 0.5 mg Tablet 0.5 mg PO HS ascorbic acid (vitamin C) [Vitamin C] 500 mg Tablet 500 mg PO QAM paroxetine HCl 20 mg Tablet 20 mg PO QAM vitamin E 400 unit Capsule 400 unit PO QAM omega 7-mwp-wem-fish oil [Fish Oil] 1,000 mg (120 mg-180 mg) Capsule 1 tab PO QAM furosemide 40 mg tablet 40 mg PO QAM spironolactone 25 mg tablet 25 mg PO QAM Trelegy Ellipta 100-62.5-25 mcg blister with device 1 inh INHALATION BID zinc picolinate 25 mg Capsule 0 mg PO DAILY Discontinued albuterol sulfate [Ventolin HFA] 90 mcg/actuation Hfa Aerosol Inhaler 2 puff INHALATION QID PRN (Reason: Shortness Of Breath Or Wheezing) Discharge Orders: Discharge Order (Routine); Ordered 01/18/22 Ordered By: Cammie Conte Admission Data Admit Date/Time: 01/14/22 17:17 Attending Provider: Cammie Conte Admit Provider: Trace Ruiz Primary Care Provider: Hermelinda Penn Other Providers: Trace Ruiz ; Alfredo Razo ; Susan Forbes ; Paula Santiago ; Tiana Power ; Gloria Diaz ; Julito Rice ; Amrik Daniel ; Keaton Hoyos ; Rodriguez Tineo ; Erica Tineo ; Lloyd Daniel ; Brandie De Santiago ; Sen Viera ; Eleno Evans ; Slick Yip ; Deo Anderson ; Yaz Quintanilla ; Rajendra Sandoval ; Concha Scott ; Kristin Sandoval ; Moustapha Crockett ; Dayanna Major ; Luke Michaels ; Calli Mehta ; Kendy Archer ; Aida Saldaña ; [place] ; Henny Vyas ; Yazmin López ; Uma Whaley ; Anette Nolan ; Khari Nolan V ; Hugo Norton ; Paula Kessler ; Ashok Vergara ; Giulia Solomon ; Khari Garcia ; Temo Quintanilla ; Hank Crawford ; Tana Larson ; Naye Santiago ; Khari Goldman ; Jeffery Severino ; Harry Anderson ; Charlotte Baker ; John Castro ; Anderson Nguyen ; Vishal Phelan ; John Bernal ; Julito Mir Jr ; Charlene Grace ; Nancy Giraldo ; Lizette Galeas ; Mendoza Gambino ; Gloria Meléndez ; Rodriguez Landin ; Rocco Gonzales I. ; Concepcion Ash SVera Other Interventions: Discharge Summary Assessment (RN) Last Done: 01/18/22 12:43 Coding Level of Care Code D/C DAY MANAGEMENT >30 MINS Diagnoses Acute and chronic respiratory failure with hypoxia J96.21 Paroxysmal atrial fibrillation I48.0 Elevated troponin R77.8 COPD (chronic obstructive pulmonary disease) J44.9 CKD (chronic kidney disease) N18.9 Tobacco abuse Z72.0 Hypertension I10 Hyperlipidemia E78.5 Edema R60.9 Depression F32.9 Anemia D64.9 Time Spent (min) 35
--- NOTE | 2022-01-19 06:14 | Electrocardiogram Report ---
Test Reason : Blood Pressure : / mmHG Vent. Rate : 065 BPM Atrial Rate : 065 BPM P-R Int : 196 ms QRS Dur : 102 ms QT Int : 448 ms P-R-T Axes : 044 053 054 degrees QTc Int : 465 ms Sinus rhythm with Premature atrial complexes Otherwise normal ECG When compared with ECG of 16-JAN-2022 09:04, Sinus rhythm has replaced Atrial fibrillation Vent. rate has decreased BY 94 BPM Right bundle branch block is no longer Present Confirmed by Alfredo Razo ([id number]) on 01/19/2022 6:14:32 AM Referred By: REFERRED SELF Confirmed By:Alfredo Razo
== END 2022-01-18 15:09 | disposition home or self-care (01) | DRG 190 ==
LOC: ED 14:01 → 2S 17:17 → SUATTDRO 17:17 → 2S 21:12
DX: I24.8 Other forms of acute ischemic heart disease; Q21.3 Tetralogy of Fallot; J96.21 Acute and chronic respiratory failure with hypoxia; D64.9 Anemia, unspecified; I12.9 Hypertensive chronic kidney disease with stage 1 through stage 4 chronic kidney disease, or unspecified chronic kidney disease; I48.92 Unspecified atrial flutter; J44.1 Chronic obstructive pulmonary disease with (acute) exacerbation; I48.0 Paroxysmal atrial fibrillation; N18.9 Chronic kidney disease, unspecified; F17.210 Nicotine dependence, cigarettes, uncomplicated; F32.A Depression, unspecified; Z79.01 Long term (current) use of anticoagulants; E78.5 Hyperlipidemia, unspecified

== ENCOUNTER 2022-04-19 20:18 | Inpatient (IN) ==
[2022-04-19] MEDS ORDERED: SODIUM CHLORIDE 0.9% 1000ML 500 ML IV ONE ×2 (20:46→21:16)
[2022-04-19] MEDS ORDERED: METOPROLOL TARTRATE 50 MG TAB PO STA (20:46)
[2022-04-19] MEDS ORDERED: METOPROLOL TARTRATE 1 MG/ML VIAL IV STA (20:46)
[2022-04-19 20:56] LABS: Basophils # (auto) 0.04 K/uL (0-0.2); Basophils % (auto) 0.8 %; Eosinophils # (auto) 0.09 K/uL (0-0.50); Eosinophils % (auto) 1.8 %; Hemoglobin 9.5 g/dl (12.0-16.0); Immature Granulocytes # (auto) 0.01 K/uL (0.00-0.02); Immature Granulocytes % (auto) 0.2 %; Lymphocytes # (auto) 1.44 K/uL (1.2-3.4); Lymphocytes % (auto) 28.5 %; Mean Corpuscular Hemoglobin 23.6 pg (25.0-34.0); Mean Corpuscular Hgb Conc 29.7 g/dL (32.0-36.0); Mean Corpuscular Volume 79.4 fL (80.0-100.0); Mean Platelet Volume 10.3 fL (9.4-12.3); Monocytes # (auto) 0.39 K/uL (0.24-0.82); Monocytes % (auto) 7.7 %; Neutrophils # (auto) 3.08 K/uL (1.4-6.5); Platelet Count 190 K/uL (130-400); RDW Coefficient of Variation 17.2 % (11.5-14.5); RDW Standard Deviation 49.7 fL (36.4-46.3); Red Blood Count 4.03 M/uL (3.93-5.22); White Blood Count 5.05 K/ul (4.8-10.8)
--- NOTE | 2022-04-19 20:57 | Emergency Department Note ---
Impression & Plan Atrial fibrillation with rapid ventricular response, Elevated troponin, Weakness, Hypotension ED Provider Note NAME: DEBORAH GA AGE: 77 SEX: F : 1945 ARRIVES VIA: Ambulance INFORMANT: [Patient] ED PROVIDER(S): [Jadiel Webber MD] CHIEF COMPLAINT: Illness, tachycardia HISTORY OF PRESENT ILLNESS: The patient is a 77-year-old female who had felt fine today up until about 2 hours ago. She was eating some cake as it was her birthday and suddenly, she felt unwell and felt her heart racing. No chest pain, no shortness of breath. She has had no cough, cold or congestion. No vomiting or diarrhea. She has been in baseline health. The patient does have a history of A. fib and takes metoprolol, she is due for her nighttime dose. She also is on Eliquis. REVIEW OF SYSTEMS: See HPI for pertinent positives and negatives. A total of ten systems were reviewed and were otherwise negative. PMHx/PSHx: See Below SOCIAL HISTORY: See Below. PHYSICAL EXAM: GENERAL: Patient is in no acute distress. HEENT: No acute trauma, normocephalic atraumatic, mucous membranes moist, no nasal congestion, no scleral icterus. NECK: No stridor, no adenopathy, no meningismus, trachea is midline. LUNGS: Diminished breath sounds with a few scattered crackles, no wheezing, no respiratory distress. HEART: 3/6 systolic murmur, moderately tachycardic, irregular rhythm. ABDOMEN: Soft, nontender, bowel sounds positive, no peritonitis. EXTREMITIES: No cyanosis, mild bilateral pedal edema, full range of motion of all the joints without pain or difficulty, no signs for acute trauma. NEUROLOGIC: Oriented x 3, no acute motor or sensory deficits, no focal weakness. SKIN: No rash, no jaundice, no diaphoresis. DIFFERENTIAL DIAGNOSIS: Infection, dehydration, UTI, metabolic abnormality, dysrhythmia, A. fib or a flutter, COVID-19, hypo/hyperglycemia, electrolyte disturbance, anemia, hypoxia, cardiac sources, as well as other pathologies. EMERGENCY DEPARTMENT COURSE/PROCEDURES: ECG: Indication was tachycardia. The ECG shows atrial fibrillation with a rate of 125. There are some inverted T waves in the inferior leads. There is no ST elevation. No PVCs. The QTc is 496. Compared to an ECG from 18 January 2022, A. fib is now present. The inverted T waves in the inferior leads are now present. The rate is increased. Repeat ECG: Indication was atrial fibrillation. The ECG shows atrial fibrillation with a rate of 92. There is a right bundle branch block. No concerning ST elevation. QTc was 494. Compared to the ECG from earlier today, the rate has decreased. Continuous Cardiac Monitoring: An order was placed for continuous cardiac monit oring. The monitor shows a rate of 132 with atrial fibrillation. Critical Care Note: I have personally spent 39 minutes of critical care time in the direct management of this patient. This includes bedside care, interpretation of diagnostic studies, and testing, discussion with consultants, patient, and family members, and other required patient management activities. This 39 minutes is in excess of all separately billable procedures. MEDICAL DECISION MAKING: There is no leukocytosis. The patient is anemic with a hemoglobin of 9.5. This is baseline for the patient. There is a normal platelet count. No renal failure. No significant electrolyte abnormality. No worrisome liver enzyme elevation. The patient appears to be in a euthyroid state. ECG showed a rapid atrial fibrillation without acute ischemia. Cardiac enzyme testing x2 does show a troponin rise, this rise is concerning for cardiac injury or strain. COVID test returned negative. Chest x-ray shows some chronic parenchymal congestion, no pneumonia. Cardiomegaly was noted. On exam, the patient denies any chest pain. She was hypotensive and tachycardic. The patient was given oral metoprolol. She was given a liter of IV saline. The patient's heart rate is now in the 80s. She is resting comfortably, her blood pressure has improved. With the rise of the troponin, with her presentation, I do think a hospital stay is warranted. Further cardiac work-up is necessary. I did speak with the patient and with her family, I did speak with case management, the on-call hospitalist was consulted. Past Med/Surg History Medical History Anxiety Bulging disc Chronic hypoxemic respiratory failure Chronic obstructive pulmonary disease COPD (chronic obstructive pulmonary disease) Depression Edema GERD (gastroesophageal reflux disease) GIB (gastrointestinal bleeding) Hearing deficit Hyperlipidemia Hypertension Left ventricular outflow tract obstruction Obstructive sleep apnea Osteoarthritis Paroxysmal atrial fibrillation Poor balance Sleep apnea Systolic anterior movement of mitral valve Tobacco abuse counseling Surgical History History of cholecystectomy History of colonoscopy History of surgery Rt eye keratectomy History of tonsillectomy and adenoidectomy History of tooth extraction ALL ON TOP, MOST ON BOTTOM History of total abdominal hysterectomy and bilateral salpingo-oophorectomy Family History (Updated 01/14/22 @ 18:25 by Angelina Montoya PA-C) Other Family history non-contributory Social History Smoking Status: Current some day smoker Tobacco Type: Cigarettes Cigarettes Per Day: 1-2 A DAY FOR 50 YRS; Second Hand Exposure: No; Hx Alcohol Use: No Hx Substance Use: No Preferred Language: Nepali 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: Effective 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 Beliefs That Will Affect Care: None marital status: Current Living Situation: Spouse Current Living Situation Comment: home Feels Safe at Home: Yes Assistive Devices: None Allergies Allergies Allergy/AdvReac Type Severity Reaction Status Date / Time No Known Allergies Allergy Verified 04/19/22 22:59 Home Meds Home Medications Medication Instructions Recorded Confirmed ascorbic acid (vitamin C) 500 mg 500 mg PO QAM 03/02/18 04/19/22 tablet (Vitamin C) atorvastatin 40 mg tablet 40 mg PO QAM 03/02/18 04/19/22 lorazepam 0.5 mg tablet (Ativan) 0.5 mg PO HS 03/02/18 04/19/22 omega 9-ucb-teg-fish oil 1,000 mg 1 tab PO QAM 03/02/18 04/19/22 (120 mg-180 mg) capsule (Fish Oil) paroxetine HCl 20 mg tablet 20 mg PO QAM 03/02/18 04/19/22 potassium chloride 20 mEq 20 meq PO QAM 03/02/18 04/19/22 tablet,extended release(part/cryst) (Klor-Con M) vitamin E 268 mg (400 unit) capsule 400 unit PO QAM 03/02/18 04/19/22 cholecalciferol (vitamin D3) 25 1,000 unit PO QAM 11/26/18 04/19/22 mcg (1,000 unit) capsule (Vitamin D3) furosemide 40 mg tablet 40 mg PO QAM 10/31/20 04/19/22 spironolactone 25 mg tablet 25 mg PO QAM 10/31/20 04/19/22 omeprazole 40 mg capsule,delayed 40 mg PO DAILY 04/19/22 04/19/22 release zinc acetate 25 mg (zinc) capsule 25 mg PO DAILY 04/19/22 04/19/22 Previous Rx's Medication Instructions Recorded apixaban 5 mg tablet (Eliquis) 5 mg PO BID #180 tabs 08/09/21 metoprolol tartrate 50 mg tablet 50 mg PO BID #180 tabs 08/09/21 fluticasone fur. 200 mcg-umeclid 1 inh inhalation DAILY #60 ea 03/16/22 62.5 mcg-vilant 25 mcg inhalat.powder (Trelegy Ellipta) Portable Oxygen #1 ea 03/25/22 Results & Data (ED) Vital Signs Vital Signs - 24 hr 04/19/22 20:33 04/19/22 20:36 04/19/22 21:06 Temperature 37 C Temperature Source Oral Pulse Rate 124 H Pulse Rate [Finger] 138 H Pulse Rate from SpO2 Sensor Respiratory Rate 18 18 Respiratory Effort / Characteristics Non-Labored Spontaneous Non-Labored Spontaneous Respiratory Depth Normal Normal Blood Pressure 94/60 L Blood Pressure [Left Arm] 92/62 L Blood Pressure Mean 71 Blood Pressure Mean [Left Arm] 72 Blood Pressure Position [Left Arm] Sitting Pulse Oximetry 97 97 98 Oxygen Delivery Method Nasal Cannula Nasal Cannula Nasal Cannula Oxygen Flow Rate 2 2 2 Sepsis Recent Fever Within 48 Hours No Sepsis New/Unexplained Change in Mental Status No Sepsis Action Taken by Nursing No Action Required 04/19/22 21:11 04/19/22 21:19 04/19/22 21:29 Temperature Temperature Source Pulse Rate 145 H Pulse Rate [Finger] 117 H Pulse Rate from SpO2 Sensor Respiratory Rate 18 Respiratory Effort / Characteristics Non-Labored Spontaneous Respiratory Depth Normal Blood Pressure 91/66 L Blood Pressure [Left Arm] 123/66 Blood Pressure Mean Blood Pressure Mean [Left Arm] 85 Blood Pressure Position [Left Arm] Sitting Pulse Oximetry 97 98 Oxygen Delivery Method Nasal Cannula Nasal Cannula Oxygen Flow Rate 2 2 Sepsis Recent Fever Within 48 Hours Sepsis New/Unexplained Change in Mental Status Sepsis Action Taken by Nursing 04/19/22 22:02 04/19/22 22:45 04/19/22 23:00 Temperature Temperature Source Pulse Rate 95 H 91 H Pulse Rate [Finger] 107 H Pulse Rate from SpO2 Sensor 94 H 88 Respiratory Rate 18 21 20 Respiratory Effort / Characteristics Non-Labored Spontaneous Respiratory Depth Normal Blood Pressure 116/77 133/74 Blood Pressure [Left Arm] 125/68 Blood Pressure Mean 90 93 Blood Pressure Mean [Left Arm] 87 Blood Pressure Position [Left Arm] Pulse Oximetry 97 97 97 Oxygen Delivery Method Nasal Cannula Nasal Cannula Nasal Cannula Oxygen Flow Rate 2 2 2 Sepsis Recent Fever Within 48 Hours Sepsis New/Unexplained Change in Mental Status Sepsis Action Taken by Nursing 04/19/22 23:15 04/19/22 23:30 04/19/22 23:45 Temperature Temperature Source Pulse Rate 88 87 87 Pulse Rate [Finger] Pulse Rate from SpO2 Sensor 87 87 87 Respiratory Rate 20 23 21 Respiratory Effort / Characteristics Respiratory Depth Blood Pressure 131/80 124/78 112/79 Blood Pressure [Left Arm] Blood Pressure Mean 97 93 90 Blood Pressure Mean [Left Arm] Blood Pressure Position [Left Arm] Pulse Oximetry 98 98 98 Oxygen Delivery Method Nasal Cannula Nasal Cannula Nasal Cannula Oxygen Flow Rate 2 2 2 Sepsis Recent Fever Within 48 Hours Sepsis New/Unexplained Change in Mental Status Sepsis Action Taken by Snf Medications Current Medication List: was personally reviewed by me Laboratory Data Attestation: I reviewed the patient's lab results. Result diagrams: 04/19/22 20:36 04/19/22 20:36 Lab Results 04/19/22 04/19/22 04/19/22 Range/Units 20:36 20:36 20:36 WBC 5.05 (4.8-10.8) K/ul RBC 4.03 (3.93-5.22) M/uL Hgb 9.5 L (12.0-16.0) g/dl Hct 32.0 L (34.1-44.9) % MCV 79.4 L (80.0-100.0) fL MCH 23.6 L (25.0-34.0) pg MCHC 29.7 L (32.0-36.0) g/dL RDW Std Deviation 49.7 H (36.4-46.3) fL RDW Coeff of Giana 17.2 H (11.5-14.5) % Plt Count 190 (130-400) K/uL MPV 10.3 (9.4-12.3) fL Immature Gran % (Auto) 0.2 % Neut % (Auto) 61.0 % Lymph % (Auto) 28.5 % [place] % (Auto) 7.7 % Eos % (Auto) 1.8 % Baso % (Auto) 0.8 % Neut # (Auto) 3.08 (1.4-6.5) K/uL Lymph # (Auto) 1.44 (1.2-3.4) K/uL [place] # (Auto) 0.39 (0.24-0.82) K/uL Eos # (Auto) 0.09 (0-0.50) K/uL Baso # (Auto) 0.04 (0-0.2) K/uL Immature Gran # (Auto) 0.01 (0.00-0.02) K/uL Sodium 141 (136-145) mmol/L Potassium 3.9 (3.5-5.1) mmol/L Chloride 103 (98-107) mmol/L Carbon Dioxide 29 (21-32) mmol/L Anion Gap 9 (3-11) BUN 17 (6-23) mg/dl Creatinine 1.28 H (0.6-1.2) mg/dl Est Cr Clr Drug Dosing 46.2 ml/min Est GFR ( Amer) 47.4 ml/min Est GFR (Non-Af Amer) 40.9 ml/min BUN/Creatinine Ratio 13.3 (10-20) Glucose 166 H (70-99(Fasting)) mg/dl Calcium 8.9 (8.5-10.1) mg/dl Magnesium 1.7 (1.7-2.4) mg/dl Total Bilirubin 0.4 (0.2-1.0) mg/dl AST 14 (13-39) U/L ALT 10 (7-52) U/L Alkaline Phosphatase 79 (34-104) U/L Troponin I High Sens 18.5 H D (0-14) pg/ml Total Protein 6.9 (6.0-8.3) gm/dl Albumin 4.3 (3.4-5.0) gm/dl Globulin 2.6 (2.5-4.0) gm/dl Albumin/Globulin Ratio 1.7 (0.9-2) TSH 2.608 (0.300-4.500) uIu/ml SARS-CoV-2, RNA, NAAT (NEGATIVE) 04/19/22 04/19/22 Range/Units 21:10 23:04 WBC (4.8-10.8) K/ul RBC (3.93-5.22) M/uL Hgb (12.0-16.0) g/dl Hct (34.1-44.9) % MCV (80.0-100.0) fL MCH (25.0-34.0) pg MCHC (32.0-36.0) g/dL RDW Std Deviation (36.4-46.3) fL RDW Coeff of Giana (11.5-14.5) % Plt Count (130-400) K/uL MPV (9.4-12.3) fL Immature Gran % (Auto) % Neut % (Auto) % Lymph % (Auto) % [place] % (Auto) % Eos % (Auto) % Baso % (Auto) % Neut # (Auto) (1.4-6.5) K/uL Lymph # (Auto) (1.2-3.4) K/uL [place] # (Auto) (0.24-0.82) K/uL Eos # (Auto) (0-0.50) K/uL Baso # (Auto) (0-0.2) K/uL Immature Gran # (Auto) (0.00-0.02) K/uL Sodium (136-145) mmol/L Potassium (3.5-5.1) mmol/L Chloride (98-107) mmol/L Carbon Dioxide (21-32) mmol/L Anion Gap (3-11) BUN (6-23) mg/dl Creatinine (0.6-1.2) mg/dl Est Cr Clr Drug Dosing ml/min Est GFR ( Amer) ml/min Est GFR (Non-Af Amer) ml/min BUN/Creatinine Ratio (10-20) Glucose (70-99(Fasting)) mg/dl Calcium (8.5-10.1) mg/dl Magnesium (1.7-2.4) mg/dl Total Bilirubin (0.2-1.0) mg/dl AST (13-39) U/L ALT (7-52) U/L Alkaline Phosphatase (34-104) U/L Troponin I High Sens 105.0 H* D (0-14) pg/ml Total Protein (6.0-8.3) gm/dl Albumin (3.4-5.0) gm/dl Globulin (2.5-4.0) gm/dl Albumin/Globulin Ratio (0.9-2) TSH (0.300-4.500) uIu/ml SARS-CoV-2, RNA, NAAT NEGATIVE (NEGATIVE) Administered Medications Discontinued Medications Sodium Chloride (Nss 1000ml) 500 mls @ 999 mls/hr IV .Q31M ONE Stop: 04/19/22 21:16 Last Infusion: 04/19/22 22:02 Dose: 0 mls/hr Documented By: Admin: 04/19/22 21:09 Dose: 999 mls/hr Documented By: ROMINA Sodium Chloride (Nss 1000ml) 500 mls @ 999 mls/hr IV .Q31M ONE Stop: 04/19/22 21:46 Last Infusion: 04/19/22 22:02 Dose: 0 mls/hr Documented By: Admin: 04/19/22 21:21 Dose: 999 mls/hr Documented By: ROMINA Metoprolol Tartrate (Metoprolol Tartrate 1 Mg/Ml Vial) 5 mg IV NOW STA Stop: 04/19/22 20:47 Last Admin: 04/19/22 21:19 Dose: Not Given Documented By: ROMINA Metoprolol Tartrate (Metoprolol Tartrate 50 Mg Tab) 50 mg PO NOW STA Stop: 04/19/22 20:47 Last Admin: 04/19/22 21:18 Dose: 50 mg Documented By: ROMINA Imaging Data Attestation: I personally reviewed and interpreted this imaging study as follows: My Impression: Chest x-ray: Per my review there is cardiomegaly and some parenchymal congestion/mild CHF. The film looks similar to previous. No pneumonia Discharge Plan Visit Data Chief Complaint: Illness Stated Complaint: WEAKNESS ED Provider: Jadiel Webber Discharge Problem: Atrial fibrillation with rapid ventricular response, Elevated troponin, Weakness, Hypotension Forms Stand Alone Forms: My [facility] Prescriptions Prescriptions: No Action Eliquis 5 mg tablet 5 mg PO BID Qty: 180 3RF metoprolol tartrate 50 mg tablet 50 mg PO BID Qty: 180 3RF (DME) Portable Oxygen Misc See Rx Instructions .Route Qty: 1 0RF Rx Instructions: portable oxygen concentrator; 2LPM via n/c on exertion. JOSUE 99 Trelegy Ellipta 200-62.5-25 mcg blister with device 1 inh inhalation DAILY Qty: 60 2RF cholecalciferol (vitamin D3) [Vitamin D3] 1,000 unit Capsule 1,000 unit PO QAM atorvastatin 40 mg Tablet 40 mg PO QAM potassium chloride [Klor-Con M20] 20 mEq Tablet,Er Particles/Crystals 20 meq PO QAM Label Comments: lorazepam [Ativan] 0.5 mg Tablet 0.5 mg PO HS ascorbic acid (vitamin C) [Vitamin C] 500 mg Tablet 500 mg PO QAM paroxetine HCl 20 mg Tablet 20 mg PO QAM vitamin E 400 unit Capsule 400 unit PO QAM omega 9-olf-zja-fish oil [Fish Oil] 1,000 mg (120 mg-180 mg) Capsule 1 tab PO QAM furosemide 40 mg tablet 40 mg PO QAM spironolactone 25 mg tablet 25 mg PO QAM zinc acetate 25 mg (zinc) Capsule 25 mg PO DAILY omeprazole 40 mg capsule,delayed release(DR/EC) 40 mg PO DAILY Referrals Referrals: Hermelinda Penn MD [Primary Care Provider] - : Hypotension Qualifiers: Hypotension type: unspecified hypotension type Qualified Code(s): I95.9 - Hypotension, unspecified
[2022-04-19 21:22] LABS: Troponin I High Sensitivity 18.5 pg/ml (0-14)
[2022-04-19 21:24] LABS: Albumin Globulin Ratio 1.7 (0.9-2); Albumin Level 4.3 gm/dl (3.4-5.0); BUN Creatinine Ratio 13.3 (10-20); Bilirubin,Total 0.4 mg/dl (0.2-1.0); Calcium 8.9 mg/dl (8.5-10.1); Creatinine Clr Calc Pharmacy 46.2 ml/min; Est GFR (African American) 47.4 ml/min; Est GFR (Non-African American) 40.9 ml/min; Globulin 2.6 gm/dl (2.5-4.0); Magnesium 1.7 mg/dl (1.7-2.4); Potassium 3.9 mmol/L (3.5-5.1); Total Protein 6.9 gm/dl (6.0-8.3)
--- NOTE | 2022-04-20 00:45 | History & Physical Report ---
Date of Service April 20, 2022 Assessment & Plan (1) Atrial fibrillation with rapid ventricular response: Plan: 77yo female with a history of paroxysmal atrial fibrillation, paroxysmal atrial flutter, chronic respiratory failure (on 2L NC oxygen at home, only with exertion, no supplemental O2 at rest), LVOT obstruction, HTN, HLD, CKD, COPD, TRACI (on CPAP), acute GI bleed requiring blood transfusions (October 2020), MDD, and history of nicotine dependence presents with a few-hour history of sudden-onset weakness, fatigue, and racing heartbeat. Fatigue, weakness, palpitations, history of atrial fibrillation/flutter Patient with sudden-onset fatigue, weakness, and palpitations while eating cake with family On admission, vitals notable for tachycardia (120-130s) and borderline hypotension (94/60) which then improved to 120-130s/60-70s Labs notable for rising hsTroponin (initial 18.5, 2.5-hour repeat 105.0); second 2-hour repeat value pending Initial EKG: atrial fibrillation with RVR, T-waves inverted in inferior leads Repeat EKG: sinus rhythm, RBBB, no overt ischemic change Vitals currently stable Admit to PCU Trend hsTroponin until peaks & falls Will let day team decide re: further cardiac testing Continue home metoprolol MEE on CKD Creatinine on admission elevated to 1.28 (baseline ~1.0) Hold home lasix and spironolactone, encourage PO intake, avoid nephrotoxins when possible Trend BMP Chronic respiratory failure: on 2L NC at home; continue and titrate as needed HTN: continue home metoprolol HLD: continue home atorvastatin CKD: hold home lasix and spironolactone, encourage PO intake, avoid nephrotoxins, trend BMP daily COPD: continue home inhaler regimen TRACI: CPAP qhs MDD: continue home paroxetine FEN: heart healthy, low sodium diet Code status: full code DVT ppx: home eliquis Held home meds: furosemide PT/OT: ordered Dispo: med/surg telemetry (2) Acute and chronic respiratory failure with hypoxia: (3) Anemia: (4) Chronic hypoxemic respiratory failure: (5) CKD (chronic kidney disease): (6) COPD (chronic obstructive pulmonary disease): (7) Depression: (8) Elevated troponin: (9) Hyperlipidemia: (10) Hypertension: (11) Left ventricular outflow tract obstruction: (12) Obstructive sleep apnea: (13) Paroxysmal atrial fibrillation: (14) Paroxysmal atrial flutter: History of Present Illness Primary Care Provider: Hermelinda Penn MD 77yo female with a history of paroxysmal atrial fibrillation, paroxysmal atrial flutter, chronic respiratory failure (on 2L NC oxygen at home, only with exertion, no supplemental O2 at rest), LVOT obstruction, HTN, HLD, CKD, COPD, TRACI (on CPAP), acute GI bleed requiring blood transfusions (October 2020), MDD, and history of nicotine dependence presents with a few-hour history of sudden-onset weakness, fatigue, and racing heartbeat. Patient was at home eating cake for her birthday when she suddenly developed the above symptoms. Patients family checked her HR at the time which was 178. Patient started feeling better while en-route to the hospital. Patient denies fever, chills, headache, vision changes, CP, SOB, edema, abdominal pain, nausea, vomiting, dysuria, hem atochezia, melena, back pain, lightheadedness, dizziness, numbness, tingling, weakness, or other symptoms. Denies recent illness and recent travel. Most recent echo (02/2022): normal LV size, EF>70%, normal wall motion, moderate LVH, severe LA dilation, sclerotic AV with mild , LVOT obstruction, mild MS. Upon arrival, vitals were notable for tachycardia (120-140s) and borderline hypotension (94/60) which subsequently improved to 120-130s/60-70s; no tachycardia, no tachypnea, patient afebrile, spO2 adequate on 2L NC. Initial labs were notable for anemia (9.5), elevated creatinine (1.28, baseline ~1.0), and rising troponin (initially 18.5; 2.5-hour repeat 105.0); no leukocytosis, platelets wnl, no electrolyte abnormalities, LFTs wnl, Tbili not elevated, covid PCR negative. Patient will be admitted for further workup primarily due to her rising troponin. In the ED, patient was given NSS 500mL bolus (x2), metoprolol 5mg IV (x1), metoprolol tartrate 50mg PO (x1). EKG (20:26): atrial fibrillation with RVR, T-waves inverted in inferior leads Repeat EKG (23:59): sinus rhythm, RBBB, no overt ischemic change Imaging: CXR: cardiomegaly, vascular congestion, no additional acute process Surrogate decision-maker in case of an emergency: armida Riverscorry Manningabhishek (cell: [phone]) Allergies Allergy/AdvReac Type Severity Reaction Status Date / Time No Known Allergies Allergy Verified 04/19/22 22:59 Home Medications Medication Instructions Recorded Confirmed Type ascorbic acid (vitamin C) 500 mg 500 mg PO QAM 03/02/18 04/19/22 History tablet (Vitamin C) atorvastatin 40 mg tablet 40 mg PO QAM 03/02/18 04/19/22 History lorazepam 0.5 mg tablet (Ativan) 0.5 mg PO 03/02/18 04/19/22 History omega 5-jim-aol-fish oil 1,000 mg 1 tab PO QAM 03/02/18 04/19/22 History (120 mg-180 mg) capsule (Fish Oil) paroxetine HCl 20 mg tablet 20 mg PO QAM 03/02/18 04/19/22 History potassium chloride 20 mEq 20 meq PO QAM 03/02/18 04/19/22 History tablet,extended release(part/cryst) (Klor-Con M) vitamin E 268 mg (400 unit) capsule 400 unit PO QAM 03/02/18 04/19/22 History cholecalciferol (vitamin D3) 25 1,000 unit PO QAM 11/26/18 04/19/22 History mcg (1,000 unit) capsule (Vitamin D3) furosemide 40 mg tablet 40 mg PO QAM 10/31/20 04/19/22 History spironolactone 25 mg tablet 25 mg PO QAM 10/31/20 04/19/22 History apixaban 5 mg tablet (Eliquis) 5 mg PO BID #180 tabs 08/09/21 04/19/22 Rx metoprolol tartrate 50 mg tablet 50 mg PO BID #180 tabs 08/09/21 04/19/22 Rx fluticasone fur. 200 mcg-umeclid 1 inh inhalation DAILY #60 ea 03/16/22 04/19/22 Rx 62.5 mcg-vilant 25 mcg inhalat.powder (Trelegy Ellipta) Portable Oxygen #1 ea 03/25/22 Rx omeprazole 40 mg capsule,delayed 40 mg PO DAILY 04/19/22 04/19/22 History release zinc acetate 25 mg (zinc) capsule 25 mg PO DAILY 04/19/22 04/19/22 History Past Med/Surg History Medical History Anxiety Bulging disc Chronic hypoxemic respiratory failure Chronic obstructive pulmonary disease COPD (chronic obstructive pulmonary disease) Depression Edema GERD (gastroesophageal reflux disease) GIB (gastrointestinal bleeding) Hearing deficit Hyperlipidemia Hypertension Left ventricular outflow tract obstruction Obstructive sleep apnea Osteoarthritis Paroxysmal atrial fibrillation Poor balance Sleep apnea Systolic anterior movement of mitral valve Tobacco abuse counseling Surgical History History of cholecystectomy History of colonoscopy History of surgery Rt eye keratectomy History of tonsillectomy and adenoidectomy History of tooth extraction ALL ON TOP, MOST ON BOTTOM History of total abdominal hysterectomy and bilateral salpingo-oophorectomy Family History (Updated 01/14/22 @ 18:25 by Angelina Montoya PA-C) Other Family history non-contributory Social History Smoking Status: Current some day smoker Tobacco Type: Cigarettes Cigarettes Per Day: 1-2 A DAY FOR 50 YRS; Second Hand Exposure: No; Do You Dip or Chew Tobacco: No; Hx Alcohol Use: No Hx Substance Use: No Preferred Language: Cameroonian 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: Effective Head Of Product Required: No Beliefs That Will Affect Care: None marital status: Current Living Situation: Spouse Current Living Situation Comment: home Other Information That Helps Us Care for You: No Feels Safe at Home: Yes Safety Concerns: Feels Safe At This Time Assistive Devices: CPAP, Denture - Upper, Glasses, Hearing Aid - Bilateral and Oxygen - Continuous Physical Exam Physical Exam: Constitutional: well-appearing, no acute distress HEENT: NCAT, no conjunctival injection CV: regular rhythm, no murmur appreciated, extremities well-perfused, no LE edema Resp: CTABL, no wheezes/rales/rhonchi appreciated, no increased work of breathing GI: soft, nondistended, nontender, BS normoactive MSK: no gross deformities appreciated Skin: warm, dry, no rash appreciated Neuro: alert, oriented, no focal neurologic deficit appreciated Results & Data Results & Data ([facility]) Vital Signs (Past 12 Hours) Vital Signs Temp Pulse Pulse Resp BP BP Pulse Ox 04/19/22 23:45 87 21 112/79 98 04/19/22 23:30 87 23 124/78 98 04/19/22 23:15 88 20 131/80 98 04/19/22 23:00 91 H 20 133/74 97 04/19/22 22:45 95 H 21 116/77 97 04/19/22 22:02 107 H 18 125/68 97 04/19/22 21:29 117 H 18 123/66 98 04/19/22 21:19 145 H 91/66 L 04/19/22 21:11 97 04/19/22 21:06 138 H 18 92/62 L 98 04/19/22 20:36 97 04/19/22 20:33 37 C 124 H 18 94/60 L 97 O2 Del Method O2 Flow Rate 04/19/22 23:45 Nasal Cannula 2 04/19/22 23:30 Nasal Cannula 2 04/19/22 23:15 Nasal Cannula 2 04/19/22 23:00 Nasal Cannula 2 04/19/22 22:45 Nasal Cannula 2 04/19/22 22:02 Nasal Cannula 2 04/19/22 21:29 Nasal Cannula 2 04/19/22 21:19 04/19/22 21:11 Nasal Cannula 2 04/19/22 21:06 Nasal Cannula 2 04/19/22 20:36 Nasal Cannula 2 04/19/22 20:33 Nasal Cannula 2 Supervising Physician Co-Signing Physician Notes Attending addendum: I have physically seen this patient, have supervised the medical residents activities, and agree with the H&P unless as otherwise noted. Assessment and Plan: Atrial fibrillation with RVR- The patient will be admitted to telemetry for serial cardiac enzymes, serial EKG's, cardiac rhythm monitoring and a 2-D echocardiogram with Dopplers. Highly sensitive troponin elevated, initial 18.5, with second 105.0. Likely secondary to rapid heart rate Magnesium 1.7 give 2 g of mag sulfate IV Potassium 3.9, give 20 mEq p.o. Follow serial BMP and magnesium levels Continue home metoprolol tartrate 50 mg p.o. twice daily and Eliquis 5 mg p.o. twice daily Continue Klor-Con 20 mEq p.o. every morning, furosemide 40 mg p.o. every morning, spironolactone 25 mg p.o. every morning Hyperlipidemia- Continue atorvastatin 40 mg every morning Remaining orders and notations as noted Resident Activity Tracking Resident Involvement: Resident Care Provided and Certified Industrial Hygienist Coverage Note Care Provided: Adult Hospital Medicine
[2022-04-20] MEDS ORDERED: MELATONIN 3 MG TAB PO PRN (04:21)
[2022-04-20 06:57] LABS: Hematocrit (blood only) 30.1 % (34.1-44.9); Hemoglobin 8.8 g/dl (12.0-16.0); Mean Corpuscular Hemoglobin 23.6 pg (25.0-34.0); Mean Corpuscular Hgb Conc 29.2 g/dL (32.0-36.0); Mean Corpuscular Volume 80.7 fL (80.0-100.0); Mean Platelet Volume 10.8 fL (9.4-12.3); Platelet Count 164 K/uL (130-400); RDW Coefficient of Variation 17.2 % (11.5-14.5); Red Blood Count 3.73 M/uL (3.93-5.22); White Blood Count 4.81 K/ul (4.8-10.8)
[2022-04-20 07:31] LABS: Albumin Globulin Ratio 1.8 (0.9-2); Bilirubin,Total 0.3 mg/dl (0.2-1.0); Calcium 8.6 mg/dl (8.5-10.1); Creatinine Clr Calc Pharmacy 52.8 ml/min; Est GFR (African American) 56.3 ml/min; Est GFR (Non-African American) 48.5 ml/min; Globulin 2.2 gm/dl (2.5-4.0); Magnesium 1.7 mg/dl (1.7-2.4); Potassium 4.1 mmol/L (3.5-5.1); Total Protein 6.2 gm/dl (6.0-8.3)
[2022-04-20] MEDS: UMECLIDINIUM/VILANTEROL 62.5/25MCG 7 PUFFS/INHALER INH SCH (08:35)
[2022-04-20] MEDS: FLUTICASONE FUROATE 200MCG 14 PUFFS/INHALER INH SCH (08:35)
[2022-04-20] MEDS: ATORVASTATIN 40 MG TAB PO SCH (08:36)
[2022-04-20] MEDS: METOPROLOL TARTRATE 50 MG TAB PO SCH ×2 (08:36→20:29)
[2022-04-20] MEDS: APIXABAN 5 MG TABLET PO SCH ×2 (08:36→20:29)
[2022-04-20] MEDS: POTASSIUM CHLORIDE CRTAB 20 MEQ TABCR PO SCH (08:36)
[2022-04-20] MEDS: PANTOprazole 40 MG TAB PO SCH (08:36)
[2022-04-20] MEDS: PARoxetine HCL 20 MG TAB PO SCH (08:36)
[2022-04-20] MEDS ORDERED: SPIRONOLACTONE 25 MG TAB PO SCH (09:00)
--- NOTE | 2022-04-20 09:58 | XRay Report ---
XR chest 1V portable HISTORY: weakness COMPARISON: Chest 01/14/2022. FINDINGS: No pneumothorax. No pleural effusions. The cardiac silhouette remains enlarged. There is mi ld central pulmonary vascular congestion without overt edema. No new focal lung consolidations to sug gest a pneumonia. IMPRESSION: Cardiomegaly with mild central pulmonary vascular congestion without overt edema. ACT 112: Negative or not required by law. Electronically signed by: Rodriguez Lema M.D. 04/20/2022 9:56 AM
--- NOTE | 2022-04-20 16:41 | Electrocardiogram Report ---
Test Reason : Blood Pressure : / mmHG Vent. Rate : 125 BPM Atrial Rate : 133 BPM P-R Int : 000 ms QRS Dur : 136 ms QT Int : 344 ms P-R-T Axes : 000 093 -09 degrees QTc Int : 496 ms Atrial fibrillation with rapid ventricular response Rightward axis Non-specific intra-ventricular conduction block T wave abnormality, consider inferior ischemia Abnormal ECG When compared with ECG of 18-JAN-2022 09:07, Significant changes have occurred Confirmed by Ramiro Faulkner ([id number]) on 04/20/2022 4:40:57 PM Referred By: REFERRED SELF Confirmed By:Ramiro Faulkner
--- NOTE | 2022-04-20 16:44 | Electrocardiogram Report ---
Test Reason : Blood Pressure : / mmHG Vent. Rate : 092 BPM Atrial Rate : 088 BPM P-R Int : 000 ms QRS Dur : 138 ms QT Int : 400 ms P-R-T Axes : 000 080 023 degrees QTc Int : 494 ms Sinus rhythm with 1st degree A-V block and with occasional Premature ventricular complexes Right bundle branch block Abnormal ECG When compared with ECG of 19-APR-2022 20:26, (unconfirmed) Atrial fibrillation no longer present Confirmed by Ramiro Faulkner ([id number]) on 04/20/2022 4:44:11 PM Referred By: REFERRED SELF Confirmed By:Ramiro Faulkner
--- NOTE | 2022-04-20 18:49 | History & Physical Bridge Note ---
Date of Service April 20, 2022 History & Physical Bridge Note I have examined the patient, reviewed the History & Physical and in the interval since the performance of the History & Physical . I saw the patient little after 5 PM today. She is not had any further atrial fibrillation she is ambulating on her own. She does not use her oxygen regularly though she is been prescribed 2 L of oxygen continuously by Dr. Schmid who is a new hris specialist. Complete pulmonary function testing a month or so ago revealed evidence of restrictive lung disease and a low-dose CT scan of the lung was ordered. That is planned tomorrow around 3 PM and she wonders if she can get it today. At baseline get short of breath walking half a block and this is gone on for about 18 months. Denies leg swelling. Denies nausea/vomiting/depressed mood or memory problems Denies any chest pain/light headedness or syncope. Did feel a pounding of her chest and weakness while eating her birthday cake after dinner yesterday evening which brought her to the ER where she was found to be in A. fib with rapid ventricular response. Troponin has risen from 42/100. Serial troponins were not ordered. Cardiology have not been consulted . Social history currently smokes half a pack of cigarettes a day, lives with her and has 2 adult children, denies history of alcohol or illicit drug use PLAN: With troponinemia ,I will consult cardiology. Keep her current beta- nancie dose. Was in normal sinus rhythm on telemetry when seen around 5 PM MEE on CKD3 : I am not sure why she is on 40 mg of Lasix plus spironolactonecontinue to hold both.. I am guessing heart failure preserved ejection fraction because she does have significant LVH per echocardiogram 2 months ago. EF was 70% on 03/01/2022 with normal valves. Continue to hold Lasix for now COPD home oxygen dependent not compliant with regular oxygen use. Pending work- up of restrictive lung disease and I will get a CT low-dose of her lungs as planned tomorrow. TRACI with obesity on CPAP at home . Unable to find CPAP pressure and pulmonary notes and an overnight pulse oximetry notes from last month. Nicotine abuseis aware that she needs to quit. Can be addressed as an outpatient and here at discharge.
--- NOTE | 2022-04-20 20:02 | CT Scan Report ---
CT OF THE CHEST WITHOUT IV CONTRAST CLINICAL HISTORY: Restrictive lung disease, dyspnea. COMPARISON STUDY: Chest radiographs January 14, 2022 and April 19, 2022 CT DOSE: 510.80 mGy.cm TECHNIQUE: Axial images of the chest were obtained without IV contrast. Images were reviewed in the axial, sagittal, and coronal planes. IV contrast was not administered for this examination. Automat ed exposure control was utilized for the study. A dose lowering technique was utilized adhering to t he principles of ALARA. FINDINGS: No enlarged axillary, mediastinal or hilar lymph nodes are present. Note is made of modera te cardiomegaly and coronary artery calcification. There is extensive mitral annular calcification. A moderate sized hiatal hernia is noted with partially intrathoracic stomach. There is no pneumothorax .. Trace left pleural effusion is present. There is no consolidation to suggest pneumonia. Mild inter lobular septal thickening is most evident within the left lower lobe. Subpleural opacities favor atel ectasis. There is no consolidation to suggest pneumonia. There is no honeycombing. Moderate upper lob e predominant paraseptal emphysema is present. Scattered tiny nodules within the lungs are likely zhen ign. These measure up to 3 mm. These include a 3 mm right upper lobe nodule on image 128 of 306.a Gal lbladder surgically absent. No acute fracture or suspicious lesion within the visualized bony thorax. IMPRESSION: 1. Cardiomegaly. Mild interstitial pulmonary edema. Trace left pleural effusion. 2. No CT evidence for interstitial lung disease. 3. Mild upper lobe predominant paraseptal emphysema. 4. Scattered tiny pulmonary nodules measuring up to 3 mm. These are likely benign. A follow up chest CT in 6 months is recommended to ensure stability. 5. Moderate sized hiatal hernia. ACT 112: Negative or not required by law. Electronically signed by: Lukas Fuentes M.D. 04/20/2022 8:00 PM
[2022-04-20] MEDS: LORazepam 0.5 MG TAB PO SCH (20:29)
--- NOTE | 2022-04-20 20:55 | Billing Data ---
Date of Service April 20, 2022 Coding Level of Care Code INT OBSERVATION CARE 70M LVL 3
[2022-04-20 21:21] LABS: Appearance Urine Clear (Clear); Bacteria Urine Automated 1+ (Negative); Bilirubin Urine Negative (Negative); Blood Urine Negative (Negative); Color Urine Yellow; Epithelial Cell Urine Auto >30 /lpf (0-5); Glucose Urine UA Negative (Negative); Ketones Urine Trace (Negative); Leukocyte Esterase Urine 1+ (Negative); Nitrite Urine Negative (Negative); Protein Urine Trace (Negative); RBC Urine Automated 0-4 /hpf (0-4); Specific Gravity Urine 1.026 (1.000-1.030); Urobilinogen Urine Negative (Negative)
[2022-04-21 07:35] LABS: Estimated Average Glucose 126 mg/dl
[2022-04-21] MEDS: METOPROLOL TARTRATE 50 MG TAB PO SCH ×2 (07:38→20:15)
[2022-04-21] MEDS: POTASSIUM CHLORIDE CRTAB 20 MEQ TABCR PO SCH (07:39)
[2022-04-21] MEDS: APIXABAN 5 MG TABLET PO SCH ×2 (07:39→20:15)
[2022-04-21] MEDS: FLUTICASONE FUROATE 200MCG 14 PUFFS/INHALER INH SCH (07:39)
[2022-04-21] MEDS: UMECLIDINIUM/VILANTEROL 62.5/25MCG 7 PUFFS/INHALER INH SCH (07:39)
[2022-04-21] MEDS: PANTOprazole 40 MG TAB PO SCH (07:39)
[2022-04-21] MEDS: ATORVASTATIN 40 MG TAB PO SCH (07:39)
[2022-04-21] MEDS: PARoxetine HCL 20 MG TAB PO SCH (08:47)
[2022-04-21 10:16] LABS: Basophils # (auto) 0.02 K/uL (0-0.2); Basophils % (auto) 0.4 %; Eosinophils # (auto) 0.02 K/uL (0-0.50); Eosinophils % (auto) 0.4 %; Hematocrit (blood only) 25.9 % (34.1-44.9); Hemoglobin 7.6 g/dl (12.0-16.0); Immature Granulocytes # (auto) 0.01 K/uL (0.00-0.02); Immature Granulocytes % (auto) 0.2 %; Lymphocytes # (auto) 0.95 K/uL (1.2-3.4); Lymphocytes % (auto) 20.8 %; Mean Corpuscular Hemoglobin 23.5 pg (25.0-34.0); Mean Corpuscular Hgb Conc 29.3 g/dL (32.0-36.0); Mean Corpuscular Volume 80.2 fL (80.0-100.0); Mean Platelet Volume 10.5 fL (9.4-12.3); Monocytes # (auto) 0.33 K/uL (0.24-0.82); Monocytes % (auto) 7.2 %; Neutrophils # (auto) 3.23 K/uL (1.4-6.5); Platelet Count 134 K/uL (130-400); RDW Coefficient of Variation 17.4 % (11.5-14.5); RDW Standard Deviation 50.8 fL (36.4-46.3); Red Blood Count 3.23 M/uL (3.93-5.22); White Blood Count 4.56 K/ul (4.8-10.8)
[2022-04-21 10:38] LABS: BUN Creatinine Ratio 17.1 (10-20); Calcium 8.7 mg/dl (8.5-10.1); Creatinine Clr Calc Pharmacy 56.1 ml/min; Est GFR (African American) 60.2 ml/min; Est GFR (Non-African American) 51.9 ml/min; Iron 22 mcg/dl (35-150); Magnesium 1.6 mg/dl (1.7-2.4); Potassium 3.8 mmol/L (3.5-5.1); Total Iron Binding Cap Calc 389 mcg/dl (250-450); Transferrin (FE) Percent Satur 6 % (15-50); Unsaturated Iron Binding Cap 367 mcg/dl (155-355)
[2022-04-21 10:46] LABS: Ovalocytes 1+
[2022-04-21 11:15] LABS: Ferritin 6.2 ng/ml (8-388)
--- NOTE | 2022-04-21 11:20 | Cardiology Consultation ---
Date of Consultation April 21, 2022 Assessment & Plan (1) Paroxysmal atrial fibrillation: (2) Systolic anterior movement of mitral valve: (3) Left ventricular outflow tract obstruction: (4) Elevated troponin: (5) Hypertension: (6) Tobacco abuse: Plan ASSESSMENT/PLAN: 1. Paroxysmal atrial fibrillation: Presented with atrial fibrillation and rapid ventricular response and has since converted to sinus rhythm. This has been an ongoing issue. Rates were quite elevated and was symptomatic with elevated troponin, likely due to underlying LVOT obstruction with MANUELITO. Recommend antiarrhythmic approach. Has underlying pulmonary issues but could consider amiodarone. After discussion, we will start Multaq 400 mg po bid, if affordable. If becomes bradycardic, will likely have to reduce metoprolol. For stroke risk reduction, she has been on Eliquis but has worsening anemia and history of GI bleed. We discussed the fact that anticoagulation therapy may need to be discontinued. Discussed Watchman device as an option. If hemoglobin worsens or found to have heme-positive stool, discontinue anticoagulation therapy. 2. Anemia: Discussed with Dr. Alan of the primary hospitalist service. Recommend checking stool for blood. If heme-positive, discontinue anticoag ulation therapy and can pursue Watchman device if patient is agreeable. 3. Elevated troponin: Likely due to demand ischemia. She did not present with angina. Demand ischemia likely due to AFib with RVR with underlying LVOT obstruction in the setting of systolic anterior motion of the mitral and hyperdynamic LV systolic function when last evaluated. Considering outpatient myocardial perfusion study. Limited echo. 4. Systolic anterior motion mitral leaflet with LVOT obstruction: Noted on previous imaging. LVOT obstruction likely worsened in the setting of AFib with RVR and worsening anemia, which typically would resolved in more hyperdynamic LV systolic function. Limited echo ordered to evaluate wall motion and LVOT gradient, although she is now in sinus rhythm with controlled heart rates. Continue beta-nancie. Avoid dehydration. 5. Tobacco abuse: Recommended that she stop smoking. Congratulated on cutting back. 6. Hypertension: Was initially hypotensive in the setting of AFib with RVR and underlying LVOT obstruction. Blood pressure currently acceptable. 7. Volume status: She appears hypervolemic. She received IV fluids per report in the emergency department and is not written for Lasix. Will resume outpatient Lasix. Will avoid aggressive diuresis so as to not precipitate worsening LVOT obstruction. 8. Disposition: Recommended Multaq as above. Once her anemia issues sorted out, can be discharged home from a cardiac standpoint with outpatient follow-up. Plan of care discussed with Dr. Alan of the primary hospitalist service. Today's visit was 46 minutes in duration, and time spent at the bedside, counseling patient, coordinating care, reviewing records, and documentation. Thank you for allowing me to participate in the care of your patient. Please call for any other questions or concerns. Sincerely, Dwain Razo M.D. History of Present Illness Reason for Consultation: Atrial fibrillation with RVR and troponin elevation Requesting Physician: Neal Duncan Attending Physician: Richard Alan MD History of Present Illness Mrs. Rose is a very pleasant 77 old female with history significant for paroxysmal atrial fibrillation, paroxysmal atrial flutter, acute blood loss anemia from GI bleed, hypertension, dyslipidemia, COPD, and sleep apnea on CPAP q.h.s.. She was initially referred to Cardiology on 11/26/2020 for atrial fibrillation. She was diagnosed with atrial fibrillation on 09/20/2020 at [facility]. She had been short of breath for 2 days leading up to hos pitalization and was using a pulse oximeter at home when she noted that her heart rate was irregular. She went to the hospital for further evaluation. While there, she had an ECG which demonstrated atrial fibrillation but heart rate was not elevated. She was discharged on Eliquis 5 mg twice daily and metoprolol 25 mg twice daily as new medications. Her BNP was also elevated and she reportedly received Lasix 40 mg IV with improvement of her dyspnea. She was then hospitalized at [facility] on 10/31/2020 with acute GI bleed. She had been taking Eliquis and aspirin 81 mg daily. She developed melena and on presentation had a hemoglobin of 5.6. On discharge hemoglobin was 8 and she had received 3 units of packed red blood cells. On 11/02/2020 she underwent EGD and colonoscopy. EGD was unremarkable and colonoscopy demonstrated nonbleeding internal hemorrhoids but there was stool throughout the colon. No active bleeding was noted. She [facility] and has followed up with GI on 11/10/2020. There was consideration of video capsule endoscopy at that time. She has since resumed Eliquis and has not noted any further bleeding. She was again hospitalized in January of 2022 with acute on chronic respiratory failure with hypoxia. She was treated for COPD exacerbation and discharged home on supplemental oxygen. She developed atrial fibrillation/flutter with rapid ventricular response on 01/16/2022 noted on telemetry. She felt palpitations with atrial flutter however once on rate-controlling medications, her symptoms resolved. ECG on 01/16/2022 demonstrated what appeared to be atrial fibrillation with RVR. She spontaneously converted to sinus rhythm. She has had the following studies/procedures: 1. Echo 09/22/2020 [facility]: Hyperdynamic LV systolic function. EF > 70%. No regional wall motion abnormalities. Significant LVOT flow turbulence likely secondary to hyperdynamic LV function. Mildly dilated RV with mildly reduced systolic function. Mild TR. 2. Event monitor 11/26/2020 to 12/25/2020: Sinus rhythm. PACs and PVCs. No arrhythmia. 3. Echo 05/28/2021 [facility]: Normal LV size. EF > 70%. Normal wall motion. Moderate LVH. Severe left atrial dilation. Sclerotic aortic valve. Severe MAC. Systolic anterior motion mitral leaflet with LVOT obstruction (PVD 3.8 with peak gradient 57). Mildly elevated transvalvular mitral gradient (5.4). 4. Event monitor 01/22/2022 to 02/23/2022: Predominantly sinus rhythm with sinus bradycardia. Average heart rate 61. Paroxysmal AFib with average heart rate 89 beats per minute. AFib burden approximately 1%. PACs and PVCs. Undefined symptoms x2 occurred during sinus bradycardia in AFib with RVR. 5. Echo 03/01/2022: Normal LV size. EF > 70%. Normal wall motion. Moderate LVH. Severe left atrial dilation. Sclerotic aortic valve with possible mild . Severe MAC. MANUELITO with LVOT obstruction (resting PV 2.7; PG 30). No significant change with Valsalva. Mild MS. RVSP 27. She was admitted on 04/20/2022 with AFib with RVR. She had been eating birthday cake and felt unwell with palpitations. Using a home pulse oximeter, her heart rate was noted to be in the 170s. She denies chest pain or shortness of breath. EMS was summoned. She was noted to be in AFib with RVR P In the emergency department she received IV fluid, intravenous metoprolol and then a dose of oral metoprolol 50 mg. She was initially hypotensive with a low blood pressure of 91/66 mmHg. She converted to sinus rhythm. She continues to denies chest pain or shortness of breath. She has not had any further palpitations. This was her first episode of palpitations since her office visit on 03/16/2022. She has not had any recent fevers, chills, nausea, vomiting, diarrhea. She denies syncope, near-syncope. She has chronic but stable dyspnea with exertion in chronic and stable edema. She continues to smoke but has cut back to 1-1.5 packs per week. She has not noted melena, hematochezia, or hematuria, however her hemoglobin has been trending downward since admission. Hemoglobin on presentation was 9.5 but trended downward to 7.6 this morning. Review of systems: As above. Review of systems otherwise negative/unremarkable. Family history:No known premature CAD. Social history: Smoking approximately 1-1.5 packs per week and has smoked for several years (> 30 pack years). She had smoked 1 pack per day. No significant alcohol or drug abuse. Lives at home with her . She has 4 children, 3 daughters and 1 son. Two daughters are nurses. Vanesa Marrero (daughter) is a nurse at [employer]. Her daughter, Vanesa, presented to the bedside. Allergies Allergy/AdvReac Type Severity Reaction Status Date / Time No Known Allergies Allergy Verified 04/19/22 22:59 Home Medications Medication Instructions Recorded Confirmed Type ascorbic acid (vitamin C) 500 mg 500 mg PO QAM 03/02/18 04/19/22 History tablet (Vitamin C) atorvastatin 40 mg tablet 40 mg PO QAM 03/02/18 04/19/22 History lorazepam 0.5 mg tablet (Ativan) 0.5 mg PO HS 03/02/18 04/19/22 History omega 1-pmo-pez-fish oil 1,000 mg 1 tab PO QAM 03/02/18 04/19/22 History (120 mg-180 mg) capsule (Fish Oil) paroxetine HCl 20 mg tablet 20 mg PO QAM 03/02/18 04/19/22 History potassium chloride 20 mEq 20 meq PO QAM 03/02/18 04/19/22 History tablet,extended release(part/cryst) (Klor-Con M) vitamin E 268 mg (400 unit) capsule 400 unit PO QAM 03/02/18 04/19/22 History cholecalciferol (vitamin D3) 25 1,000 unit PO QAM 11/26/18 04/19/22 History mcg (1,000 unit) capsule (Vitamin D3) furosemide 40 mg tablet 40 mg PO QAM 10/31/20 04/19/22 History spironolactone 25 mg tablet 25 mg PO QAM 10/31/20 04/19/22 History apixaban 5 mg tablet (Eliquis) 5 mg PO BID #180 tabs 08/09/21 04/19/22 Rx metoprolol tartrate 50 mg tablet 50 mg PO BID #180 tabs 08/09/21 04/19/22 Rx fluticasone fur. 200 mcg-umeclid 1 inh inhalation DAILY #60 ea 03/16/22 04/19/22 Rx 62.5 mcg-vilant 25 mcg inhalat.powder (Trelegy Ellipta) Portable Oxygen #1 ea 03/25/22 Rx omeprazole 40 mg capsule,delayed 40 mg PO DAILY 04/19/22 04/19/22 History release zinc acetate 25 mg (zinc) capsule 25 mg PO DAILY 04/19/22 04/19/22 History dronedarone 400 mg tablet (Multaq) 400 mg PO BID #60 tabs 04/21/22 Rx Patient History Medical History Anxiety Bulging disc Chronic hypoxemic respiratory failure Chronic obstructive pulmonary disease COPD (chronic obstructive pulmonary disease) Depression Edema GERD (gastroesophageal reflux disease) GIB (gastrointestinal bleeding) Hearing deficit Hyperlipidemia Hypertension Left ventricular outflow tract obstruction Obstructive sleep apnea Osteoarthritis Paroxysmal atrial fibrillation Poor balance Sleep apnea Systolic anterior movement of mitral valve Tobacco abuse counseling Surgical History History of cholecystectomy History of colonoscopy History of surgery Rt eye keratectomy History of tonsillectomy and adenoidectomy History of tooth extraction ALL ON TOP, MOST ON BOTTOM History of total abdominal hysterectomy and bilateral salpingo-oophorectomy Family History (Updated 01/14/22 @ 18:25 by Angelina Montoya PA-C) Other Family history non-contributory Social History Smoking Status: Current some day smoker Tobacco Type: Cigarettes Cigarettes Per Day: 1-2 A DAY FOR 50 YRS; Second Hand Exposure: No; Do You Dip or Chew Tobacco: No; Hx Alcohol Use: No Hx Substance Use: No Preferred Language: Hungarian 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: Effective Wire Mesh Filter Fabricator Required: No Beliefs That Will Affect Care: None marital status: Current Living Situation: Spouse Current Living Situation Comment: home Other Information That Helps Us Care for You: No Feels Safe at Home: Yes Safety Concerns: Feels Safe At This Time Assistive Devices: Oxygen - Continuous and Walker Physical Exam Physical Exam: Gen.: No acute distress. Alert. HEENT: Anicteric sclera. Neck: Mild JVD. Hepatic jugular reflux noted. Cardiac: No ventricular heave. Regular. Normal S1-S2. 2/6 systolic ejection murmur best heard at right upper sternal border. No rubs or gallops. Pulmonary: Occasional expiratory wheeze at the bases, but otherwise clear. Abdomen: Soft, nontender, nondistended, with normoactive bowel sounds. No bruits noted. Extremities: 2+ radial pulses bilaterally. 2+ posterior tibialis pulses bilaterally. Trace bilateral lower extremity edema. No cyanosis. Psychiatric: Affect appears appropriate. Results & Data ([facility]) Vital Signs (Past 12 Hours) Vital Signs Temp Pulse Resp BP Pulse Ox O2 Del Method O2 Flow Rate 04/21/22 07:00 Nasal Cannula 2 04/21/22 07:47 37.2 C 69 18 111/51 L 91 Nasal Cannula 2.5 04/21/22 04:00 37.4 C 69 18 104/58 L 90 Nasal Cannula 2 Intake & Output 04/19/22 04/20/22 04/21/22 04/22/22 06:59 06:59 06:59 06:59 Intake Total 1000 / 1000 500 / 500 Balance 1000 / 1000 500 / 500 Weight 225 lb 1.471 oz 227 lb 4.745 oz 227 lb 4.745 oz Laboratory Results Laboratory Results - last 24 hr 04/20/22 04/20/22 04/21/22 18:47 Unknown 02:10 WBC RBC Hgb Hct MCV MCH MCHC RDW Std Deviation RDW Coeff of Giana Plt Count MPV Immature Gran % (Auto) Neut % (Auto) Lymph % (Auto) [place] % (Auto) Eos % (Auto) Baso % (Auto) Neut # (Auto) Lymph # (Auto) [place] # (Auto) Eos # (Auto) Baso # (Auto) Immature Gran # (Auto) Ovalocytes Sodium Potassium Chloride Carbon Dioxide Anion Gap BUN Creatinine Est Cr Clr Drug Dosing Est GFR ( Amer) Est GFR (Non-Af Amer) BUN/Creatinine Ratio Glucose Estimat Average Glucose 126 Hemoglobin A1c 6.0 H Calcium Magnesium Iron TIBC Unsaturated IBC Transferrin % Sat Ferritin Troponin I High Sens 706.3 H* D Vitamin B12 Folate Urine Color Yellow Urine Appearance Clear Urine pH 6.0 Ur Specific Randall 1.026 Urine Protein Trace H Urine Glucose (UA) Negative Urine Ketones Trace H Urine Blood Negative Urine Nitrite Negative Urine Bilirubin Negative Urine Urobilinogen Negative Ur Leukocyte Esterase 1+ H Urine WBC (Auto) 10-30 H Urine RBC (Auto) 0-4 U Hyaline Cast (Auto) 1-5 U Epithel Cells (Auto) >30 H Urine Bacteria (Auto) 1+ H 04/21/22 04/21/22 04/21/22 02:10 09:47 09:47 WBC 4.56 L RBC 3.23 L Hgb 7.6 L Hct 25.9 L MCV 80.2 MCH 23.5 L MCHC 29.3 L RDW Std Deviation 50.8 H RDW Coeff of Giana 17.4 H Plt Count 134 MPV 10.5 Immature Gran % (Auto) 0.2 Neut % (Auto) 71.0 Lymph % (Auto) 20.8 [place] % (Auto) 7.2 Eos % (Auto) 0.4 Baso % (Auto) 0.4 Neut # (Auto) 3.23 Lymph # (Auto) 0.95 L [place] # (Auto) 0.33 Eos # (Auto) 0.02 Baso # (Auto) 0.02 Immature Gran # (Auto) 0.01 Ovalocytes 1+ Sodium 141 Potassium 3.8 Chloride 106 Carbon Dioxide 31 Anion Gap 4 BUN 18 Creatinine 1.05 Est Cr Clr Drug Dosing 56.1 Est GFR ( Amer) 60.2 Est GFR (Non-Af Amer) 51.9 BUN/Creatinine Ratio 17.1 Glucose 200 H Estimat Average Glucose Hemoglobin A1c Calcium 8.7 Magnesium 1.6 L Iron TIBC Unsaturated IBC Transferrin % Sat Ferritin 6.2 L Troponin I High Sens 575.2 H* Vitamin B12 Folate Urine Color Urine Appearance Urine pH Ur Specific Randall Urine Protein Urine Glucose (UA) Urine Ketones Urine Blood Urine Nitrite Urine Bilirubin Urine Urobilinogen Ur Leukocyte Esterase Urine WBC (Auto) Urine RBC (Auto) U Hyaline Cast (Auto) U Epithel Cells (Auto) Urine Bacteria (Auto) 04/21/22 04/21/22 09:47 09:47 WBC RBC Hgb Hct MCV MCH MCHC RDW Std Deviation RDW Coeff of Giana Plt Count MPV Immature Gran % (Auto) Neut % (Auto) Lymph % (Auto) [place] % (Auto) Eos % (Auto) Baso % (Auto) Neut # (Auto) Lymph # (Auto) [place] # (Auto) Eos # (Auto) Baso # (Auto) Immature Gran # (Auto) Ovalocytes Sodium Potassium Chloride Carbon Dioxide Anion Gap BUN Creatinine Est Cr Clr Drug Dosing Est GFR ( Amer) Est GFR (Non-Af Amer) BUN/Creatinine Ratio Glucose Estimat Average Glucose Hemoglobin A1c Calcium Magnesium Iron 22 L TIBC 389 Unsaturated IBC 367 H Transferrin % Sat 6 L Ferritin Troponin I High Sens Vitamin B12 157 L Folate 17.94 Urine Color Urine Appearance Urine pH Ur Specific Randall Urine Protein Urine Glucose (UA) Urine Ketones Urine Blood Urine Nitrite Urine Bilirubin Urine Urobilinogen Ur Leukocyte Esterase Urine WBC (Auto) Urine RBC (Auto) U Hyaline Cast (Auto) U Epithel Cells (Auto) Urine Bacteria (Auto) Diagnostic Findings Telemetry personally reviewed: Has been sinus rhythm today and yesterday. Initially atrial fibrillation with RVR. ECGs personally reviewed: ECG 04/19/2022 at 8:26 p.m.: AFib RVR 125 beats per minute. Right bundle branch block. ECG 04/19/2022 at 11:59 p.m.: Probable sinus rhythm with first-degree AV block. RBBB. CT chest 04/20/2022: Mild interstitial pulmonary edema. No evidence for interstitial lung disease. Mild upper lobe predominant paraseptal emphysema. Pulmonary nodules. Moderate hiatal hernia. Medications Administered Current Inpatient Medications Apixaban (Apixaban 5 Mg Tablet) 5 mg PO BID MALICK Stop: 05/20/22 08:59 Last Admin: 04/21/22 07:39 Dose: 5 mg Atorvastatin Calcium (Atorvastatin 40 Mg Tab) 40 mg PO QAM MALICK Stop: 05/20/22 08:59 Last Admin: 04/21/22 07:39 Dose: 40 mg Fluticasone Furoate (Fluticasone Furoate 200mcg 14 Puffs/Inhaler) 1 puffs INH DAILY MALICK Stop: 05/20/22 08:59 Last Admin: 04/21/22 07:39 Dose: 1 puffs Lorazepam (Lorazepam 0.5 Mg Tab) 0.5 mg PO HS MALICK Stop: 05/20/22 20:59 Last Admin: 04/20/22 20:29 Dose: 0.5 mg Melatonin (Melatonin 3 Mg Tab) 3 mg PO HS PRN PRN Reason: Sleep Stop: 05/20/22 04:20 Last Admin: 04/20/22 20:31 Dose: 3 mg Metoprolol Tartrate (Metoprolol Tartrate 50 Mg Tab) 50 mg PO BID MALICK Stop: 05/20/22 08:59 Last Admin: 04/21/22 07:38 Dose: 50 mg Pantoprazole Sodium (Pantoprazole 40 Mg Tab) 40 mg PO DAILY MALICK Stop: 05/20/22 08:59 Last Admin: 04/21/22 07:39 Dose: 40 mg Paroxetine HCl (Paroxetine Hcl 20 Mg Tab) 20 mg PO QAM MALICK Stop: 05/20/22 08:59 Last Admin: 04/21/22 08:47 Dose: 20 mg Potassium Chloride (Potassium Chloride Crtab 20 Meq Tabcr) 20 meq PO QAM MALICK Stop: 05/20/22 08:59 Last Admin: 04/21/22 07:39 Dose: 20 meq Umeclidinium/Vilanterol (Umeclidinium/Vilanterol 62.5/25mcg 7 Puffs/Inhaler) 1 puffs INH DAILY MALICK Stop: 05/20/22 08:59 Last Admin: 04/21/22 07:39 Dose: 1 puffs PG Care Time/CCT Total # of Minutes Spent Total Time Spent with Patient: Total time spent is greater than 50% in coordination of care (as documented) at patient's floor/unit and/or counseling patient: Coding Level of Care Code 20129 Office/Outpt Visit, Est Diagnoses Paroxysmal atrial fibrillation I48.0 Systolic anterior movement of mitral valve I34.8 Left ventricular outflow tract obstruction Q24.8 Elevated troponin R77.8 Hypertension I10 Tobacco abuse Z72.0 Time Spent (min) 46
--- NOTE | 2022-04-21 12:19 | Hospitalist Progress Note ---
Date of Service April 21, 2022 Assessment & Plan (1) Atrial fibrillation with rapid ventricular response: Plan: Converted to normal sinus rhythm without antiarrhythmics on April 20 at around 10:[address] Razo -planning on starting Multaq. Discussed with case management and prescribed to [facility] to find out cost. Updated her daughter (Anita, in case management) looking for coupons to help with affordability of this. Continue anticoagulation with Eliquis 5 mg p.o. twice daily (2) Anemia: Plan: Acute on chronic - likely mainly iron deficient however also B12 deficient. Hemoglobin dropped from 9.5 to 7.6 g/dL. Repeat H&H at 5 PM. History of GI bleed. Will consider holding Eliquis if fecal occult blood positive as discussed with cardiology. Given prior EGD and colonoscopy unremarkable and no recurrence of bright red blood in stool melena will defer GI work-up at this time. B12 157 pg/mL -start 1000 mcg IM for 3 days Transferrin saturation 6%, ferritin 6.2 ng/mL -if not needing blood transfusion we will discuss iron transfusions tomorrow. (3) Elevated troponin: Plan: Discussed with cardiology. Suspected due to demand ischemia in the setting of A. fib with RVR. (4) Chronic hypoxemic respiratory failure: Plan: At baseline oxygen requirement. (5) CKD (chronic kidney disease): Plan: No MEE on admission. Appears to be at baseline. (6) COPD (chronic obstructive pulmonary disease): Plan: Continue routine Trelegy Ellipta or hospital formulary equivalent. (7) Depression: Plan: Continue paroxetine 20 mg p.o. every morning (8) Hyperlipidemia: Plan: Continue atorvastatin 40 mg p.o. every morning (9) Hypertension: Plan: Continue her routine medications. Furosemide 40 mg p.o. every morning, metoprolol tartrate 50 mg p.o. twice daily and spironolactone 25 mg p.o. every morning. (10) Left ventricular outflow tract obstruction: Plan: Noted (11) Obstructive sleep apnea: Plan: CPAP at bedtime (12) Paroxysmal atrial fibrillation: (13) Paroxysmal atrial flutter: Plan VTE prophylaxis -Eliquis Diet -heart healthy, low-sodium Disposition -continued admission on [facility] due to anemia and starting Multaq Admission and Anticipated Discharge Date Admission Date: April 20, 2022 Subjective No chest pain, shortness of breath, dizziness with current anemia. No melena or bright red blood in stool. Hemoglobin dropped to 7.6 g/dL from 9.5 g/dL on admission. Required 3 units of blood in October 2020 due to acute GI bleed. Eliquis and aspirin were held for 5 days on that occasion. EGD and colonoscopy at that time were unremarkable (although preparation of the colon was poor). Review of Systems Review of Systems: All systems reviewed & are unremarkable except as noted in Subjective Physical Exam Constitutional: WD/WN, vitals as above Eyes: + anicteric sclerae; normal pupil size ENMT: external ear and nose normal, oropharynx normal Neck: trachea midline, no thyromegaly Respiratory: normal respiratory effort, lungs clear to auscultation Cardiovascular: Rate/Rhythm: regular rate and regular rhythm Heart Sounds: + murmur Extremities: normal capillary refill and + pedal edema (1+ bilateral pitting edema); no calf tenderness Gastrointestinal (Abdomen): normal bowel sounds, soft, nontender, no hepatosplenomegaly Musculoskeletal: no cyanosis or clubbing, extremities motor strength 5/5 Skin: no rashes, warm and dry Neurologic: moves all extremities and awake; not confused Psychiatric: A+Ox3, euthymic affect Results & Data Results & Data ([facility]) Vital Signs (Past 12 Hours) Vital Signs Temp Pulse Pulse Resp BP Pulse Ox O2 Del Method 04/21/22 06:00 57 L 04/21/22 07:00 Nasal Cannula 04/21/22 07:47 37.2 C 69 18 111/51 L 91 Nasal Cannula 04/21/22 04:00 37.4 C 69 18 104/58 L 90 Nasal Cannula O2 Flow Rate 04/21/22 06:00 04/21/22 07:00 2 04/21/22 07:47 2.5 04/21/22 04:00 2 PG Care Time/CCT Total # of Minutes Spent Total Time Spent with Patient: Total time spent is greater than 50% in coordination of care (as documented) at patient's floor/unit and/or counseling patient: Coding Level of Care Code 19162 Subseq Obs Care Lvl 3 Diagnoses Atrial fibrillation with rapid ventricular response I48.91 Anemia D64.9 Elevated troponin R77.8 Chronic hypoxemic respiratory failure J96.11 CKD (chronic kidney disease) N18.9 COPD (chronic obstructive pulmonary disease) J44.9 Depression F32.9 Hyperlipidemia E78.5 Hypertension I10 Left ventricular outflow tract obstruction Q24.8 Obstructive sleep apnea G47.33 Paroxysmal atrial fibrillation I48.0 Paroxysmal atrial flutter I48.92
[2022-04-21] MEDS: MAGNESIUM SULFATE / D5W 1 GM/100 ML BAG IV SCH ×2 (13:14→15:07)
--- NOTE | 2022-04-21 15:41 | XCELERA ---
[id number]
[2022-04-21 17:02] LABS: Hematocrit (blood only) 27.4 % (34.1-44.9)
[2022-04-21] MEDS ORDERED: SPIRONOLACTONE 25 MG TAB PO STA (17:40)
[2022-04-21] MEDS ORDERED: FUROSEMIDE 40 MG TAB PO STA (17:40)
[2022-04-21] MEDS: CYANOCOBALAMIN 1000 MCG/ML VIAL IM SCH (18:15)
[2022-04-21] MEDS: LORazepam 0.5 MG TAB PO SCH (20:15)
[2022-04-21] MEDS: DRONEDARONE HCL 400 MG TAB PO SCH (20:15)
--- NOTE | 2022-04-22 05:08 | Electrocardiogram Report ---
Test Reason : Blood Pressure : / mmHG Vent. Rate : 060 BPM Atrial Rate : 060 BPM P-R Int : 216 ms QRS Dur : 134 ms QT Int : 448 ms P-R-T Axes : 007 077 026 degrees QTc Int : 448 ms Sinus rhythm with 1st degree A-V block Right bundle branch block Abnormal ECG When compared with ECG of 19-APR-2022 23:59, Premature ventricular complexes are no longer Present Vent. rate has decreased BY 32 BPM Confirmed by Alfredo Razo ([id number]) on 04/22/2022 5:07:48 AM Referred By: REFERRED SELF Confirmed By:Alfredo Razo
[2022-04-22 07:12] LABS: Basophils # (auto) 0.03 K/uL (0-0.2); Basophils % (auto) 0.6 %; Eosinophils # (auto) 0.03 K/uL (0-0.50); Eosinophils % (auto) 0.6 %; Hemoglobin 7.6 g/dl (12.0-16.0); Immature Granulocytes # (auto) 0.02 K/uL (0.00-0.02); Immature Granulocytes % (auto) 0.4 %; Lymphocytes # (auto) 1.85 K/uL (1.2-3.4); Lymphocytes % (auto) 36.8 %; Mean Corpuscular Hemoglobin 23.5 pg (25.0-34.0); Mean Corpuscular Hgb Conc 29.2 g/dL (32.0-36.0); Mean Corpuscular Volume 80.5 fL (80.0-100.0); Mean Platelet Volume 10.1 fL (9.4-12.3); Monocytes # (auto) 0.52 K/uL (0.24-0.82); Monocytes % (auto) 10.3 %; Neutrophils # (auto) 2.58 K/uL (1.4-6.5); Neutrophils % (auto) 51.3 %; Platelet Count 130 K/uL (130-400); RDW Coefficient of Variation 17.2 % (11.5-14.5); RDW Standard Deviation 51.2 fL (36.4-46.3); Red Blood Count 3.23 M/uL (3.93-5.22); White Blood Count 5.03 K/ul (4.8-10.8)
[2022-04-22 07:34] LABS: BUN Creatinine Ratio 15.6 (10-20); Calcium 8.4 mg/dl (8.5-10.1); Est GFR (African American) 57.5 ml/min; Est GFR (Non-African American) 49.6 ml/min; Potassium 3.9 mmol/L (3.5-5.1)
[2022-04-22 07:41] LABS: Anisocytosis Present; Ovalocytes 1+; Polychromasia 1+
[2022-04-22] MEDS: CYANOCOBALAMIN 1000 MCG/ML VIAL IM SCH (08:18)
[2022-04-22] MEDS: PANTOprazole 40 MG TAB PO SCH (08:19)
[2022-04-22] MEDS: PARoxetine HCL 20 MG TAB PO SCH (08:19)
[2022-04-22] MEDS: DRONEDARONE HCL 400 MG TAB PO SCH ×2 (08:19→19:57)
[2022-04-22] MEDS: POTASSIUM CHLORIDE CRTAB 20 MEQ TABCR PO SCH (08:19)
[2022-04-22] MEDS: APIXABAN 5 MG TABLET PO SCH ×2 (08:19→19:57)
[2022-04-22] MEDS: ATORVASTATIN 40 MG TAB PO SCH (08:19)
[2022-04-22] MEDS: FUROSEMIDE 40 MG TAB PO SCH (08:20)
[2022-04-22] MEDS: METOPROLOL TARTRATE 50 MG TAB PO SCH (08:20)
[2022-04-22] MEDS: FLUTICASONE FUROATE 200MCG 14 PUFFS/INHALER INH SCH (08:20)
[2022-04-22] MEDS: SPIRONOLACTONE 25 MG TAB PO SCH (08:20)
[2022-04-22] MEDS: UMECLIDINIUM/VILANTEROL 62.5/25MCG 7 PUFFS/INHALER INH SCH (08:21)
[2022-04-22] MEDS ORDERED: SODIUM CHLORIDE 0.9% 250 ML IV PRN (10:30)
[2022-04-22] MEDS: METOPROLOL TARTRATE 25 MG TAB PO SCH ×2 (13:18→19:57)
[2022-04-22 18:09] LABS: Hematocrit (blood only) 32.6 % (34.1-44.9); Hemoglobin 9.8 g/dl (12.0-16.0)
--- NOTE | 2022-04-22 19:36 | Hospitalist Progress Note ---
Date of Service April 22, 2022 Assessment & Plan (1) Atrial fibrillation with rapid ventricular response: Plan: Converted to normal sinus rhythm without antiarrhythmics on April 20 at around 10:[address] Razo yesterday and started on Multaq. Discussed hypotension this morning and he wished for metoprolol to continue if possible due to LVOT, will restart at 25mg PO BID with reduced hold parameters. Continue anticoagulation with Eliquis 5 mg p.o. twice daily (2) Anemia: Plan: Acute on chronic - likely mainly iron deficient however also B12 deficient. Hemoglobin dropped from 9.5 to 7.6 g/dL. Transfuse 1 unit of blood today. FOB still pending. Relatively stable so will continue Eliquis for now. History of GI bleed. Given prior EGD and colonoscopy unremarkable and no recurrence of bright red blood in stool melena will defer GI work-up at this time. B12 157 pg/mL - started 1000 mcg IM for 3 days Transferrin saturation 6%, ferritin 6.2 ng/mL - Iron deficient calculation 970mg, (200-250mg in blood transfusion) (3) Elevated troponin: Plan: Discussed with cardiology. Suspected due to demand ischemia in the setting of A. fib with RVR. (4) Chronic hypoxemic respiratory failure: Plan: At baseline oxygen requirement. (5) CKD (chronic kidney disease): Plan: No MEE on admission. Appears to be at baseline. (6) COPD (chronic obstructive pulmonary disease): Plan: Continue routine Trelegy Ellipta or hospital formulary equivalent. (7) Depression: Plan: Continue paroxetine 20 mg p.o. every morning (8) Hyperlipidemia: Plan: Continue atorvastatin 40 mg p.o. every morning (9) Hypertension: Plan: Continue her routine medications. Furosemide 40 mg p.o. every morning, metoprolol tartrate 50 mg p.o. twice daily and spironolactone 25 mg p.o. every morning. (10) Left ventricular outflow tract obstruction: Plan: Noted (11) Obstructive sleep apnea: Plan: CPAP at bedtime (12) Paroxysmal atrial fibrillation: (13) Paroxysmal atrial flutter: Plan VTE prophylaxis - Eliquis Diet - heart healthy, low-sodium Disposition - continued admission on [facility] due to anemia and starting Multaq Admission and Anticipated Discharge Date Admission Date: April 22, 2022 Subjective No chest pain, shortness of breath, dizziness with current anemia. No melena or bright red blood in stool. Hemoglobin down to 7.6 from 7.6-8.0 yesterday. Appears relatively stable on Eliquis. Discussed iron versus blood transfusion and elected for a blood transfusion at this time to allow her to have some reserve given her left ventricular outflow tract obstruction and heart failure Review of Systems Review of Systems: All systems reviewed & are unremarkable except as noted in Subjective Physical Exam Constitutional: WD/WN, vitals as above Eyes: + anicteric sclerae; normal pupil size ENMT: external ear and nose normal, oropharynx normal Neck: trachea midline, no thyromegaly Respiratory: normal respiratory effort Auscultation: + crackles (bibasal); breath sounds present, no diminished lung sounds and no wheezes Cardiovascular: Rate/Rhythm: regular rate and regular rhythm Heart Sounds: + murmur Extremities: normal capillary refill and + pedal edema (1+ bilateral pitting edema); no calf tenderness Gastrointestinal (Abdomen): normal bowel sounds, soft, nontender, no hepatosplenomegaly Musculoskeletal: no cyanosis or clubbing, extremities motor strength 5/5 Skin: no rashes, warm and dry Neurologic: moves all extremities and awake; not confused Psychiatric: A+Ox3, euthymic affect Results & Data Results & Data ([facility]) Vital Signs (Past 12 Hours) Vital Signs Temp Pulse Pulse Resp BP BP BP 04/22/22 15:57 36.7 C 55 L 20 115/61 04/22/22 14:00 53 L 04/22/22 17:01 37.1 C 62 16 137/64 04/22/22 16:28 36.8 C 55 L 16 124/74 04/22/22 15:28 36.7 C 67 16 115/61 04/22/22 14:28 36.8 C 54 L 18 107/67 04/22/22 13:58 36.8 C 54 L 16 106/63 04/22/22 13:43 36.9 C 55 L 18 120/69 04/22/22 13:25 36.5 C 61 18 116/67 04/22/22 12:24 36.6 C 58 L 20 116/70 04/22/22 10:33 58 L 119/59 L 04/22/22 07:28 36.6 C 63 20 95/56 L 122/71 Pulse Ox O2 Del Method O2 Flow Rate 04/22/22 15:57 95 Nasal Cannula 2 04/22/22 14:00 04/22/22 17:01 94 04/22/22 16:28 94 04/22/22 15:28 94 2 04/22/22 14:28 89 L 2 04/22/22 13:58 90 2 04/22/22 13:43 93 2 04/22/22 13:25 93 2 04/22/22 12:24 94 Nasal Cannula 2 04/22/22 10:33 04/22/22 07:28 94 Nasal Cannula 2 PG Care Time/CCT Total # of Minutes Spent Total Time Spent with Patient: Total time spent is greater than 50% in coordination of care (as documented) at patient's floor/unit and/or counseling patient: Coding Level of Care Code 42049 Subseq Hosp Care Lvl 2 Diagnoses Atrial fibrillation with rapid ventricular response I48.91 Anemia D64.9 Elevated troponin R77.8 Chronic hypoxemic respiratory failure J96.11 CKD (chronic kidney disease) N18.9 COPD (chronic obstructive pulmonary disease) J44.9 Depression F32.9 Hyperlipidemia E78.5 Hypertension I10 Left ventricular outflow tract obstruction Q24.8 Obstructive sleep apnea G47.33 Paroxysmal atrial fibrillation I48.0 Paroxysmal atrial flutter I48.92
[2022-04-22] MEDS: LORazepam 0.5 MG TAB PO SCH (19:57)
[2022-04-23 06:34] LABS: BUN Creatinine Ratio 18.5 (10-20); Calcium 8.6 mg/dl (8.5-10.1); Creatinine Clr Calc Pharmacy 45.5 ml/min; Est GFR (African American) 46.5 ml/min; Est GFR (Non-African American) 40.1 ml/min; Magnesium 1.8 mg/dl (1.7-2.4); Potassium 3.8 mmol/L (3.5-5.1)
[2022-04-23 06:35] LABS: Basophils # (auto) 0.03 K/uL (0-0.2); Basophils % (auto) 0.6 %; Eosinophils # (auto) 0.09 K/uL (0-0.50); Eosinophils % (auto) 1.9 %; Hematocrit (blood only) 29.9 % (34.1-44.9); Hemoglobin 9.2 g/dl (12.0-16.0); Immature Granulocytes # (auto) 0.01 K/uL (0.00-0.02); Immature Granulocytes % (auto) 0.2 %; Lymphocytes # (auto) 1.52 K/uL (1.2-3.4); Lymphocytes % (auto) 32.5 %; Mean Corpuscular Hemoglobin 24.5 pg (25.0-34.0); Mean Corpuscular Hgb Conc 30.8 g/dL (32.0-36.0); Mean Corpuscular Volume 79.5 fL (80.0-100.0); Mean Platelet Volume 10.7 fL (9.4-12.3); Monocytes # (auto) 0.45 K/uL (0.24-0.82); Monocytes % (auto) 9.6 %; Neutrophils # (auto) 2.57 K/uL (1.4-6.5); Neutrophils % (auto) 55.2 %; Platelet Count 135 K/uL (130-400); RDW Coefficient of Variation 17.7 % (11.5-14.5); RDW Standard Deviation 50.8 fL (36.4-46.3); Red Blood Count 3.76 M/uL (3.93-5.22); White Blood Count 4.67 K/ul (4.8-10.8)
[2022-04-23] MEDS ORDERED: MAGNESIUM SULFATE / D5W 1 GM/100 ML BAG IV ONE (08:02)
[2022-04-23] MEDS: ATORVASTATIN 40 MG TAB PO SCH (08:57)
[2022-04-23] MEDS: PARoxetine HCL 20 MG TAB PO SCH (08:57)
[2022-04-23] MEDS: DRONEDARONE HCL 400 MG TAB PO SCH (08:57)
[2022-04-23] MEDS: SPIRONOLACTONE 25 MG TAB PO SCH (08:57)
[2022-04-23] MEDS: APIXABAN 5 MG TABLET PO SCH (08:57)
[2022-04-23] MEDS: PANTOprazole 40 MG TAB PO SCH (08:57)
[2022-04-23] MEDS: POTASSIUM CHLORIDE CRTAB 20 MEQ TABCR PO SCH (08:57)
[2022-04-23] MEDS: UMECLIDINIUM/VILANTEROL 62.5/25MCG 7 PUFFS/INHALER INH SCH (08:58)
[2022-04-23] MEDS: FLUTICASONE FUROATE 200MCG 14 PUFFS/INHALER INH SCH (08:58)
[2022-04-23] MEDS ORDERED: IRON SUCROSE 300 MG in SODIUM CHLORIDE 0.9% 250 ML IV SCH (09:00)
[2022-04-23] MEDS: CYANOCOBALAMIN 1000 MCG/ML VIAL IM SCH (09:05)
[2022-04-23] MEDS: FUROSEMIDE 40 MG TAB PO SCH (09:41)
--- NOTE | 2022-04-23 17:16 | Discharge Summary ---
Date of Service April 23, 2022 Admission HPI Per Admitting Provider 77yo female with a history of paroxysmal atrial fibrillation, paroxysmal atrial flutter, chronic respiratory failure (on 2L NC oxygen at home, only with exertion, no supplemental O2 at rest), LVOT obstruction, HTN, HLD, CKD, COPD, TRACI (on CPAP), acute GI bleed requiring blood transfusions (October 2020), MDD, and history of nicotine dependence presents with a few-hour history of sudden-onset weakness, fatigue, and racing heartbeat. Patient was at home eating cake for her birthday when she suddenly developed the above symptoms. Patients family checked her HR at the time which was 178. Patient started feeling better while en-route to the hospital. Patient denies fever, chills, headache, vision changes, CP, SOB, edema, abdominal pain, nausea, vomiting, dysuria, hematochezia, melena, back pain, lightheadedness, dizziness, numbness, tingling, weakness, or other symptoms. Denies recent illness and recent travel. Most recent echo (02/2022): normal LV size, EF>70%, normal wall motion, moderate LVH, severe LA dilation, sclerotic AV with mild , LVOT obstruction, mild MS. Upon arrival, vitals were notable for tachycardia (120-140s) and borderline hypotension (94/60) which subsequently improved to 120-130s/60-70s; no tachycardia, no tachypnea, patient afebrile, spO2 adequate on 2L NC. Initial labs were notable for anemia (9.5), elevated creatinine (1.28, baseline ~1.0), and rising troponin (initially 18.5; 2.5-hour repeat 105.0); no leukocytosis, platelets wnl, no electrolyte abnormalities, LFTs wnl, Tbili not elevated, covid PCR negative. Patient will be admitted for further workup primarily due to her rising troponin. In the ED, patient was given NSS 500mL bolus (x2), metoprolol 5mg IV (x1), metoprolol tartrate 50mg PO (x1). EKG (20:26): atrial fibrillation with RVR, T-waves inverted in inferior leads Repeat EKG (23:59): sinus rhythm, RBBB, no overt ischemic change Imaging: CXR: cardiomegaly, vascular congestion, no additional acute process Surrogate decision-maker in case of an emergency: Dwight Rose (cell: [phone]) Principal Diagnosis Atrial fibrillation with rapid ventricular rate Iron deficiency anemia B12 deficiency Discharge Exam Constitutional WD/WN, vitals as above Eyes + anicteric sclerae; normal pupil size ENMT external ear and nose normal, oropharynx normal Neck trachea midline, no thyromegaly Respiratory normal respiratory effort, lungs clear to auscultation normal respiratory effort Auscultation: + crackles (bibasal); breath sounds present, no diminished lung sounds and no wheezes Cardiovascular Rate/Rhythm: regular rate and regular rhythm Heart Sounds: + murmur Extremities: normal capillary refill and + pedal edema (1+ bilateral pitting edema); no calf tenderness Gastrointestinal (Abdomen) normal bowel sounds, soft, nontender, no hepatosplenomegaly Musculoskeletal no cyanosis or clubbing, extremities motor strength 5/5 Skin no rashes, warm and dry Neurologic moves all extremities and awake; not confused Psychiatric A+Ox3, euthymic affect Discharge Data Allergies Allergy/AdvReac Type Severity Reaction Status Date / Time No Known Allergies Allergy Verified 04/19/22 22:59 Consultations 04/19/22 23:56 ED Decision to Admit Stat 04/20/22 18:29 Consult Cardiology Routine Ordered Studies 04/20/22 18:36 CT chest diagnostic wo con Routine IMPRESSION: 1. Cardiomegaly. Mild interstitial pulmonary edema. Trace left pleural effusion. 2. No CT evidence for interstitial lung disease. 3. Mild upper lobe predominant paraseptal emphysema. 4. Scattered tiny pulmonary nodules measuring up to 3 mm. These are likely benign. A follow up chest CT in 6 months is recommended to ensure stability. 5. Moderate sized hiatal hernia. Hospital Course (1) Atrial fibrillation with rapid ventricular response: Nella Rose is a 77 year old female admitted to [facility] from April 20 to 2021 due to sudden onset weakness and fatigue. She was diagnosed with atrial fibrillation with rapid ventricular rate. After spontaneous conversion to normal sinus rhythm the following morning after admission she had complete resolution of her symptoms. She was started on Multaq (and subsequently metoprolol discontinued due to bradycardia) as an antiarrhythmic and she has remained in a normal sinus rhythm for the rest of her admission. However due to acute on chronic anemia her stay was prolonged. Stool testing for blood was negative. She was diagnosed with iron deficiency and B12 deficiency likely as the cause of your anemia. Unclear if this is from blood loss versus poor nutrition versus poor absorption. Hemoglobin dropped from 9.5 to 7.6 g/dL. She was transfused 1 unit of packed RBCs with Hgb increase to 9.8g/dL. Transferrin saturation 6%. She received 300 mg of intravenous iron sucrose. Recommend following up with her primary care physician for a further 2 doses of 300 mg of intravenous iron sucrose and starting on every other day ferrous sulfate as prescribed. She was also diagnosed with B12 deficiency with serum level 157 pg/ml. She received cyanocobalamin 1000 mcg intramuscular injection for 3 days. 1000 mcg B12 orally daily prescribed on discharge. Please arrange follow-up with hemoglobin test in 1 week and iron/B12 testing in approximately 2 months for ongoing management of this. Scattered tiny pulmonary nodules were seen on CT chest. Likely benign but consider CT chest in 6 months to ensure stability. (2) Anemia: (3) Elevated troponin: (4) Chronic hypoxemic respiratory failure: (5) CKD (chronic kidney disease): (6) COPD (chronic obstructive pulmonary disease): (7) Depression: (8) Hyperlipidemia: (9) Hypertension: (10) Left ventricular outflow tract obstruction: (11) Obstructive sleep apnea: (12) Paroxysmal atrial fibrillation: (13) Paroxysmal atrial flutter: Total Time Total Time Spent Total Time Spent (In Minutes): 45 Discharge Plan Discharge Items Patient Disposition: Home - Self-Care Reason For Visit: WEAKNESS, FATIGUE, AFOB RVR Discharge Diagnosis: Iron deficiency anemia B12 deficiency Atrial fibrillation with rapid ventricular rate Activity: Resume your previous activity Non-emergency contact: Primary Care Provider Call non-emergency contact if: you have any medication questions and your symptoms worsen Follow-up/Referrals: Alfredo Razo MD [Physician] - (Follow-up atrial fibrillation with rapid ventricular rate in 2 to 4 weeks) Hermelinda Penn MD [Primary Care Provider] - Diet: Low Sodium (2gm) Addtl Attending Provider Instructions: You were admitted to [facility] from April 20 to 2021 due to sudden onset weakness and fatigue. You were diagnosed with atrial fibrillation with rapid ventricular rate. You converted spontaneously to normal sinus rhythm the following morning after admission with good resolution of your symptoms. You were started on Multaq (and subsequently metoprolol discontinued) to keep you in a normal sinus rhythm and you have remained in a normal sinus rhythm for the rest of your admission. However due to acute on chronic anemia your stay was prolonged. Stool testing for blood was negative. You were diagnosed with iron deficiency and B12 deficiency likely as the cause of your anemia. Unclear if this is from blood loss versus poor nutrition versus poor absorption. You were transfused 1 unit of blood. You received 300 mg of intravenous iron sucrose. Recommend following up with your primary care physician for a further 2 doses of 300 mg of intravenous iron sucrose and starting on every other day ferrous sulfate as prescribed. You received 1000 mcg intramuscular B12 for 3 days. Please continue on 1000 mcg B12 orally daily as prescribed. Please follow-up with hemoglobin test in 1 week and iron/B12 testing in approximately 2 months for ongoing management of this. Pending Studies at Discharge: No Stand-Alone Forms: My [facility], Smoking Cessation Medications and DC Order Prescriptions: New Multaq 400 mg tablet 400 mg PO BID Qty: 60 0RF Rx Instructions: must administer with a meal/food cyanocobalamin (vitamin B-12) 1,000 mcg tablet 1,000 mcg PO DAILY Qty: 30 0RF ferrous sulfate 324 mg (65 mg iron) tablet,delayed release (DR/EC) 324 mg PO Q OTHER DAY Qty: 30 0RF Continued Eliquis 5 mg tablet 5 mg PO BID Qty: 180 3RF (DME) Portable Oxygen Misc See Rx Instructions .Route Qty: 1 0RF Rx Instructions: portable oxygen concentrator; 2LPM via n/c on exertion. JOSUE 99 Trelegy Ellipta 200-62.5-25 mcg blister with device 1 inh inhalation DAILY Qty: 60 2RF cholecalciferol (vitamin D3) [Vitamin D3] 1,000 unit Capsule 1,000 unit PO QAM atorvastatin 40 mg Tablet 40 mg PO QAM potassium chloride [Klor-Con M20] 20 mEq Tablet,Er Particles/Crystals 20 meq PO QAM Label Comments: lorazepam [Ativan] 0.5 mg Tablet 0.5 mg PO HS ascorbic acid (vitamin C) [Vitamin C] 500 mg Tablet 500 mg PO QAM paroxetine HCl 20 mg Tablet 20 mg PO QAM vitamin E 400 unit Capsule 400 unit PO QAM omega [id number]-fish oil [Fish Oil] 1,000 mg (120 mg-180 mg) Capsule 1 tab PO QAM furosemide 40 mg tablet 40 mg PO QAM spironolactone 25 mg tablet 25 mg PO QAM zinc acetate 25 mg (zinc) Capsule 25 mg PO DAILY omeprazole 40 mg capsule,delayed release(DR/EC) 40 mg PO DAILY Discontinued metoprolol tartrate 50 mg tablet 50 mg PO BID Qty: 180 3RF Discharge Orders: Discharge Order (Routine); Ordered 04/23/22 Ordered By: Richard Roberson/Other Patient Handouts: Prediabetes, 5 Steps for Eating Healthier Admission Data Admit Date/Time: 04/22/22 11:32 Attending Provider: Richard Alan Admit Provider: Zay Day Primary Care Provider: Hermelinda Penn Other Providers: Taqueria Zaragoza ; Coleman Kaba ; Rj Eaton ; Ramiro Faulkner ; Jeffery Bob ; Shar Harding ; Jaron Gracia Jr ; Alfredo Razo ; Gale De La Cruz ; Zeny Noyola ; John Bedoya ; Daniel Kelly ; Juan Moreno ; Brandie Lopes ; Vanesa Liang ; Sandeep Flower ; Bharath Jenkins ; Danis Streeter ; Jeffery Wade V. Other Interventions: Discharge Summary Assessment (RN) Last Done: 04/23/22 17:27 Coding Level of Care Code D/C DAY MANAGEMENT >30 MINS Diagnoses Atrial fibrillation with rapid ventricular response I48.91 Anemia D64.9 Elevated troponin R77.8 Chronic hypoxemic respiratory failure J96.11 CKD (chronic kidney disease) N18.9 COPD (chronic obstructive pulmonary disease) J44.9 Depression F32.9 Hyperlipidemia E78.5 Hypertension I10 Left ventricular outflow tract obstruction Q24.8 Obstructive sleep apnea G47.33 Paroxysmal atrial fibrillation I48.0 Paroxysmal atrial flutter I48.92
== END 2022-04-23 17:52 | disposition home or self-care (01) | DRG 308 ==
LOC: ED 20:18 → 2N 20:18 → SUATTDRO 04-20 01:46 → 2N 04-20 03:53